=== PATIENT | female | born 1950 | race Caucasian/White ===

== ENCOUNTER 2019-11-03 14:13 | Outpatient (CLI) | payer MEDICARE, SELFPAY ==
--- NOTE | ~2019-11-03 | MM_ITS ---
EXAMINATION: MM screening [facility] BI w tonya HISTORY: Screening mammogram TECHNIQUE: Craniocaudal and mediolateral oblique 3-D tomosynthesis images were obtained and synthetic 2-D images were generated. CAD analysis was submitted and interpreted. COMPARISON: 09/14/2018, 09/09/2017, 09/03/2016 BREAST PARENCHYMAL COMPOSITION: There are scattered areas of fibroglandular density. FINDINGS: RIGHT BREAST: There is no evidence of suspicious mass, calcification, or architectural distortion to suggest malignancy. There has been no significant interval change. LEFT BREAST: There is possible architectural distortion in the middle/posterior third of the breast b est appreciated 8 cm from the nipple on craniocaudal tomosynthesis image 33/62. IMPRESSION: 1. Possible left breast architectural distortion. 2. Additional mammographic views and possible breast ultrasound are recommended. BI-RADS Category 0: Incomplete: Needs additional imaging evaluation. Reviewed, dictated and finalized at location A. IMPRESSION: 1. Possible left breast architectural distortion. 2. Additional mammographic views and possible breast ultrasound are recommended . BI-RADS Category 0: Incomplete: Needs additional imaging evaluation.
== END 2019-11-03 14:14 | disposition home or self-care (01) ==
DX: Z12.31 Encounter for screening mammogram for malignant neoplasm of breast (principal); R92.8 Other abnormal and inconclusive findings on diagnostic imaging of breast
CPT/HCPCS: 77063; 77067

== ENCOUNTER 2019-11-18 13:48 | Outpatient (CLI) | payer MEDICARE, SELFPAY ==
--- NOTE | ~2019-11-18 | MM_ITS ---
MM diagnostic mammo unilat LT DATE: 11/18/2019 14:12 INDICATION: Possible left breast architectural distortion in middle/posterior third of left breast la terally on screening mammogram of 11/03/2019 TECHNIQUE: Digital ML Tomosynthesis with composite 2-D view. Additional spot left craniocaudal and ML O Tomosynthesis views. Rolled medial and rolled lateral craniocaudal views of left breast. COMPARISON: 11/03/2019, 09/24/2018, 09/09/2017 bilateral digital screening mammogram examinations FINDINGS: No suspicious mass or architectural distortion, malignant calcification, skin thickening or retraction is evident. IMPRESSION: BI-RADS Category 1: Negative Recommendation: Routine annual mammographic screening Reviewed, dictated and finalized at Location [facility]. Reviewed, dictated and finalized at location A.
== END 2019-11-18 13:49 | disposition home or self-care (01) ==
LOC: ANHIMG 13:51
DX: R92.8 Other abnormal and inconclusive findings on diagnostic imaging of breast (principal)
CPT/HCPCS: 77065

== ENCOUNTER 2020-05-14 01:46 | Outpatient (CLI) | payer MEDICARE, SELFPAY ==
[2020-05-14 18:53] LABS: SARS-CoV-2 RNA PCR Negative
== END 2020-05-14 01:47 | disposition home or self-care (01) ==
LOC: ANHCOVIDDT 01:46
PROVIDERS: Visit Provider Internal Medicine Gastroenterology
DX: Z01.818 Encounter for other preprocedural examination (principal); Z20.828 Contact with and (suspected) exposure to other viral communicable diseases
CPT/HCPCS: 87635; C9803; U0003

== ENCOUNTER 2020-05-17 01:09 | Day surgery (SDC) | payer MEDICARE, SELFPAY ==
[2020-05-08 15:21] VITALS: BMI 27.1
--- NOTE | 2020-05-16 12:47 | P.PNAN_ITS ---
Anes - Initial Pre Proc Eval Procedure: Operation Date: 05/17/20 10:30 Proposed Procedures p Esophagogastroduodenoscopy - Rafael Bunch MD Date/Time: 05/16/20 12:47 Surgeon: Rafael Bunch MD Pre Op Diagnosis: Jesus's Esophagus Patient Data Age: 70 Gender: F Height: 1.73 m Weight: 81 kg Allergies Allergy/AdvReac Type Severity Reaction Status Date / Time No Known Allergies Allergy Unknown Uncoded 06/30/19 14:58 Home Medications Medication Instructions Recorded Confirmed Type amlodipine 10 mg PO DAILY 05/08/20 05/08/20 History biotin 2 mg PO DAILY 05/08/20 05/08/20 History escitalopram oxalate 20 mg PO DAILY 05/08/20 05/08/20 History hydrochlorothiazide 12.5 mg PO DAILY 05/08/20 05/08/20 History hydrocodone-acetaminophen 1 tablet PO HS PRN 05/08/20 05/08/20 History losartan 100 mg PO DAILY 05/08/20 05/08/20 History zgrarasl-zuh-ipws-FA-lutein 1 tablet PO DAILY 05/08/20 05/08/20 History [Centrum Silver Women] omega 6-wim-bwx-fish oil [Fish Oil] 1 cap PO BID 05/08/20 05/08/20 History omeprazole 20 mg PO DAILY 05/08/20 05/08/20 History trazodone 100 mg PO HS 05/08/20 05/08/20 History vitamin B complex [Super B Complex] 1 cap PO DAILY 05/08/20 05/08/20 History Patient hx anesthesia problems: none Family hx anesthesia problems: none PMFSH Past Medical History Medical History (Updated 05/16/20 @ 12:49 by Baldemar Bradley MD) Anxiety Barretts esophagus Chronic GERD HTN (hypertension) Osteoarthritis Osteoporosis Overweight (BMI 25.0-29.9) PUD (peptic ulcer disease) Family History Family History Other Hypertension Social History Social History Smoking status: Never smoker Alcohol intake: current Drinks per week: 0 Alcohol use details: MAY HAVE 1 OR 2 DRINKS PER YEAR Substance use: never Substance use type: does not use Spiritual care concerns: No Anes - Eval Final PreProcedure Day of Procedure 05/16/20 12:47 Patient weight: overweight Heart: regular rate and rhythm Lungs: clear to auscultation and normal air movement Airway: Mallampati scale class II Neurological: alert and oriented Last oral intake: >/= 8 hours ASA classification: II Emergent: no Anesthetic plan: proceed Anesthesia type and monitoring: general GIVS Informed Consent: The patient's anesthetic plan and its attendant risks and be nefits were discussed with the patient/family/POA. Questions were solicited and answers provided to the satisfaction of the patient/family/POA.
[2020-05-17 09:03] VITALS: BP 143/73; PULSE 73; RESP 16; TEMP 36.4; O2SAT 97; BMI 27.1
[2020-05-17] MEDS: LACTATED RINGERS 1,000 ML 150 ML IV CONT (09:17)
--- NOTE | 2020-05-17 09:49 | P.CONGI_ITS ---
Assessment and Plan Assessment and plan (1) Barretts esophagus: Code(s): K22.70 - 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 Status: Acute Assessment and Plan: Patient has history of Jesus's esophagus. No dysplasia has been known previously. Plan is for surveillance EGD now on at 3 year intervals in the future. Continued long-term years of omeprazole or similar proton pump inhibitor advised. GI Consult Note Consult date/time: 05/17/20 09:49 HPI: Nissa Thao is a 70 year old female Presents for follow-up EGD. Patient has a history of Jesus's esophagus patient presents today for follow- up EGD. She denies heartburn. She denies bleeding. She denies any weight loss. She has had no difficulty swallowing. Previous exams have shown no dysplasia. Patient did have several benign hyperplastic gastric polyps identified 3 years ago. Plan to pursue surveillance EGD at 3 year intervals at this juncture. Review of Systems Review of Systems: All systems reviewed & are unremarkable except as noted in HPI and below PMFSH Past Medical History Medical History Anxiety Barretts esophagus Chronic GERD HTN (hypertension) Osteoarthritis Osteoporosis Overweight (BMI 25.0-29.9) PUD (peptic ulcer disease) Family History Family History Other Hypertension Social History Social History Smoking status: Never smoker Alcohol intake: current Drinks per week: 0 Alcohol use details: MAY HAVE 1 OR 2 DRINKS PER YEAR Substance use: never Substance use type: does not use Spiritual care concerns: No Meds Home Medications and Allergies Home Medications Medication Instructions Recorded Confirmed Type amlodipine 10 mg PO DAILY 05/08/20 05/17/20 History biotin 2 mg PO DAILY 05/08/20 05/17/20 History escitalopram oxalate 20 mg PO DAILY 05/08/20 05/17/20 History hydrochlorothiazide 12.5 mg PO DAILY 05/08/20 05/17/20 History hydrocodone-acetaminophen 1 tablet PO HS PRN 05/08/20 05/17/20 History losartan 100 mg PO DAILY 05/08/20 05/17/20 History ppwtbwzb-eym-qlqu-FA-lutein 1 tablet PO DAILY 05/08/20 05/17/20 History [Centrum Silver Women] omega 4-aqj-ztw-fish oil [Fish Oil] 1 cap PO BID 05/08/20 05/17/20 History omeprazole 20 mg PO DAILY 05/08/20 05/17/20 History trazodone 100 mg PO HS 05/08/20 05/17/20 History vitamin B complex [Super B Complex] 1 cap PO DAILY 05/08/20 05/17/20 History Allergies Allergy/AdvReac Type Severity Reaction Status Date / Time No Known Allergies Allergy Unknown Uncoded 05/17/20 09:01 Vital Signs Vital Signs - 24 hr 05/17/20 09:03 Temperature 97.6 F Pulse Rate 73 Respiratory Rate 16 Blood Pressure 143/73 H Pulse Oximetry 97 Exam Narrative: Exam Narrative: Physical exam reveals patient to be alert. Vital signs stable. HEENT exam unremarkable. Lungs are clear to auscultation and percussion. Heart is without murmur or extra sounds. Abdominal exam bowel sounds are present soft nontender with no organomegaly. Digital external rectal exam normal.
[2020-05-17 10:09] VITALS: BP 138/79; PULSE 82; RESP 25; O2SAT 96
[2020-05-17 10:19] VITALS: BP 134/80; PULSE 74; RESP 19; O2SAT 95
[2020-05-17 10:29] VITALS: BP 122/74; PULSE 79; RESP 24; O2SAT 97
[2020-05-17 10:35] VITALS: BP 141/77; PULSE 65; RESP 19; O2SAT 99
== END 2020-05-17 10:50 | disposition home or self-care (01) ==
PROVIDERS: Visit Provider Internal Medicine Gastroenterology
PROC: 0DJ08ZZ Inspection of Upper Intestinal Tract, Via Natural or Artificial Opening Endoscopic (ICD-10-PCS; CPT 43235; principal; 2020-05-17 10:30)
DX: K22.70 Barrett's esophagus without dysplasia (principal); K44.9 Diaphragmatic hernia without obstruction or gangrene; K21.00 Gastro-esophageal reflux disease with esophagitis, without bleeding; I10 Essential (primary) hypertension; M81.0 Age-related osteoporosis without current pathological fracture; F41.9 Anxiety disorder, unspecified; Z87.11 Personal history of peptic ulcer disease
CPT/HCPCS: 43239; 88305; C9803; J2704; J7120; U0003

== ENCOUNTER 2020-11-22 14:55 | Outpatient (CLI) | payer MEDICARE, SELFPAY ==
--- NOTE | ~2020-11-22 | MM_ITS ---
EXAMINATION: MM screening [facility] BI w tonya HISTORY: Screening mammogram TECHNIQUE: Craniocaudal and mediolateral oblique 3-D tomosynthesis images were obtained and synthetic 2-D images were generated. CAD analysis was submitted and interpreted. COMPARISON: 11/18/2019 11/03/2019, 09/24/2018 BREAST PARENCHYMAL COMPOSITION: There are scattered areas of fibroglandular density. FINDINGS: There is no evidence of suspicious mass, calcification, or architectural distortion to sugg est malignancy in either breast. There has been no suspicious interval change. IMPRESSION: 1. No mammographic evidence of malignancy. 2. Recommend routine screening mammography in one year. BI-RADS Category 1: Negative Reviewed, dictated and finalized at location A.
== END 2020-11-22 14:56 | disposition home or self-care (01) ==
DX: Z12.31 Encounter for screening mammogram for malignant neoplasm of breast (principal)
CPT/HCPCS: 77063; 77067

== ENCOUNTER 2020-12-27 01:37 | Day surgery (SDC) | payer MEDICARE, SELFPAY ==
--- NOTE | 2020-12-20 14:55 | PM.IMHP ---
H&P: HPI History of Present Illness Date/Time: 12/20/20 14:55 Chief Complaint: right foot pain Narrative: 70-year-old woman with chronic right foot pain and deformity. Failed conservative treatment with accommodative shoe wear, custom inserts toe padding and strapping. Progressive deformity particularly the 2nd toe. Presents now for operative treatment. Review of Systems Constitutional: Constitutional: Denies fever(s) Eyes: Eyes: Denies blurry vision ENT: Reports Normal hearing present Cardiovascular: Cardiovascular: Denies chest pain and Denies dyspnea Respiratory: Respiratory: Denies dyspnea and Denies wheezing Gastrointestinal: Gastrointestinal: Denies abdominal pain Genitourinary: Genitourinary: Denies urinary urgency Musculoskeletal: Musculoskeletal: Reports as per HPI and Denies numbness Integumentary/Breasts: Skin/Breast: Denies changing lesions and Denies sores Neurologic: Reports Normal hearing present, Denies behavioral changes, Denies confusion, Denies numbness and Denies convulsions Psychiatric: Psychiatric: Denies behavioral changes, Denies confusion and Denies hallucinations Endocrine: Endocrine: Denies heat intolerance Hematologic/Lymphatic: Hematologic/Lymphatic: Denies easy bleeding Allergic/Immunologic: Allergic/Immunologic: Denies wheezing PMFSH Past Medical History Medical History 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 Anxiety Barretts esophagus Chronic GERD Clawtoe, acquired Hallux valgus (acquired), right foot HTN (hypertension) Inflammatory arthritis Metatarsalgia of both feet Osteoarthritis Osteoporosis Overweight (BMI 25.0-29.9) PUD (peptic ulcer disease) Family History Family History Other Hypertension Social History Social History Smoking status: Never smoker Alcohol intake: current Drinks per week: 0 Alcohol use details: MAY HAVE 1 OR 2 DRINKS PER YEAR Substance use: never Substance use type: does not use Spiritual care concerns: No Meds Home Medications and Allergies Home Medications Medication Instructions Recorded Confirmed Type amlodipine 10 mg PO DAILY 05/08/20 11/07/20 History biotin 2 mg PO DAILY 05/08/20 11/07/20 History escitalopram oxalate 20 mg PO DAILY 05/08/20 11/07/20 History hydrochlorothiazide 12.5 mg PO DAILY 05/08/20 11/07/20 History hydrocodone-acetaminophen 1 tablet PO HS PRN 05/08/20 11/07/20 History losartan 100 mg PO DAILY 05/08/20 11/07/20 History kinbfkln-mch-gccu-FA-lutein 1 tablet PO DAILY 05/08/20 11/07/20 History [Centrum Silver Women] omega 1-bzm-dbe-fish oil [Fish Oil] 1 cap PO BID 05/08/20 11/07/20 History omeprazole 20 mg PO DAILY 05/08/20 11/07/20 History trazodone 100 mg PO HS 05/08/20 11/07/20 History vitamin B complex [Super B Complex] 1 cap PO DAILY 05/08/20 11/07/20 History Allergies Allergy/AdvReac Type Severity Reaction Status Date / Time No Known Allergies Allergy Unknown Uncoded 11/07/20 14:54 Exam Const: General: healthy appearing; No in distress or confusion Orientation/consciousness: oriented to person, oriented to place, oriented to time and No confusion HENMT: Head: normal to inspection, normocephalic and atraumatic Eyes: Conjunctivae: conjunctivae normal Sclera: sclerae normal Neck: Neck: supple and nontender Resp: Effort & Inspection: normal respiratory effort and no audible wheezes Cardio: Rhythm: regular rhythm Skin: General skin exam: no rashes or lesions noted Neuro: General: oriented to person, oriented to place, oriented to time and No confusion Extrem: Right upper extremity: normal to inspection Left upper extremity: normal to inspection Right lower extremity: ankle Details: normal to inspection, normal ROM ( dorsiflexion 5?, plantar flexion 45?, inversion 20?, ever
[2020-12-21 14:23] VITALS: BMI 27.0
--- NOTE | 2020-12-26 14:28 | WPDANESEPPF ---
Anes - Initial Pre Proc Eval Procedure: Operation Date: 12/27/20 08:30 Proposed Procedures p Right Hallux Valgus Correction with First Metatarsal Osteotomy, Possible Phalangeal Osteotomy, Second Metatarsal Phalangeal Release, Possible Tendon Transfer - Joseph Leong MD Date/Time: 12/26/20 14:28 Surgeon: Joseph Leong MD Pre Op Diagnosis: right hallux valgux,rt 2nd crossover toe Patient Data Age: 70 Gender: F Height: 1.71 m Weight: 79.4 kg Allergies Allergy/AdvReac Type Severity Reaction Status Date / Time No Known Allergies Allergy Unknown Uncoded 12/27/20 06:58 Home Medications Medication Instructions Recorded Confirmed Type amlodipine 10 mg PO DAILY 05/08/20 12/27/20 History biotin 2 mg PO DAILY 05/08/20 12/27/20 History escitalopram oxalate 20 mg PO DAILY 05/08/20 12/27/20 History hydrochlorothiazide 12.5 mg PO DAILY 05/08/20 12/27/20 History hydrocodone-acetaminophen 1 tablet PO HS PRN 05/08/20 12/27/20 History losartan 100 mg PO HS 05/08/20 12/27/20 History vbycehpl-ucj-qvno-FA-lutein 1 tablet PO DAILY 05/08/20 12/27/20 History [Centrum Silver Women] omega 8-jov-mjd-fish oil [Fish Oil] 1 cap PO BID 05/08/20 12/27/20 History omeprazole 20 mg PO BID 05/08/20 12/27/20 History trazodone 100 mg PO HS 05/08/20 12/27/20 History vitamin B complex [Super B Complex] 1 cap PO DAILY 05/08/20 12/27/20 History light mineral oil-mineral oil 1 drp OPHTHALMIC (EYE) PRN PRN 12/21/20 12/27/20 History [Soothe XP] Patient hx anesthesia problems: none Family hx anesthesia problems: none PMFSH Past Medical History Medical History 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 Anxiety Barretts esophagus Chronic GERD Clawtoe, acquired Hallux valgus (acquired), right foot HTN (hypertension) Inflammatory arthritis Metatarsalgia of both feet Osteoarthritis Osteoporosis Overweight (BMI 25.0-29.9) PUD (peptic ulcer disease) Family History Family History Other Hypertension Social History Social History Smoking status: Never smoker Alcohol intake: current Drinks per week: 0 Alcohol use details: ONE DRINK PER MONTH Substance use: never Substance use type: does not use Living arrangements: other Spiritual care concerns: No Anes - Eval Final PreProcedure Day of Procedure 12/26/20 14:28 Patient weight: overweight Heart: regular rate and rhythm Lungs: clear to auscultation and normal air movement Airway: Mallampati scale class II Neurological: alert and oriented Last oral intake: >/= 8 hours ASA classification: II Emergent: no Anesthetic plan: proceed Anesthesia type and monitoring: general LMA and standard monitoring Informed Consent: The patient's anesthetic plan and its attendant risks and benefits were discussed with the patient/family/POA. Questions were solicited and answers provided to the satisfaction of the patient/family/POA.
[2020-12-27] VITALS (8 sets, daily range): BP systolic 132–142; BP diastolic 58–77; PULSE 68–86; RESP 10–18; TEMP 36.3–37.1; O2SAT 91–96; BMI 27.6
--- NOTE | ~2020-12-27 | XR_ITS ---
EXAMINATION: XR surgery orthopedic DATE: 12/27/2020 10:15 INDICATION: Right foot metatarsal osteotomy TECHNIQUE: 2 fluoroscopic images of the right forefoot were obtained during procedure performed by Dr Cheyanne Leong. Radiologist was not present for the imaging or procedure. The amount of fluoroscopy time u sed during this procedure was 0.2 minutes. COMPARISON: None. FINDINGS: Postoperative change of bunionectomy and hallux valgus correction with osteotomy at the medial head o f the first metatarsal and chevron realignment osteotomy at the distal diaphysis of the first metatar baljeet. There is also a second realignment osteotomy across the mid diaphysis of the first proximal phal anx with medial sided staple fixation. Finally there is a small minimally displaced avulsion fracture versus additional osteotomy at the lateral base of the first proximal phalanx which involves a minim al portion of the articular surface. An axially directed percutaneous fixation pin extends from the t uft of the second distal phalanx across the middle and proximal phalanges into the head and neck of t he second metatarsal. Alignment of the axes of the first and second rays appears near-anatomic. Expec abdelrahman small amount of postoperative gas in the soft tissues. IMPRESSION: 1. Postoperative changes in the right forefoot as detailed above. 2. Possible minimally displaced small avulsion fracture versus osteotomy at the lateral aspect of the base of the first proximal phalanx. Correlate with procedure note. Reviewed, dictated and finalized at location A. IMPRESSION: 1. Postoperative changes in the right forefoot as detailed above. 2. Possible minimally displaced small avulsion fracture versus osteotomy at the lateral aspect of the base of the first proximal phalanx. Correlate with proce dure note.
--- NOTE | 2020-12-27 07:00 | WPDHPUPDATE1 ---
History and Physical Update Update Date/Time: 12/27/20 07:00 History and Physical has been reviewed, including an updated exam of the patient. There are NO changes in the patient's condition. Risks, benefits, and alternatives have been discussed and questions answered. Patient agrees to proceed with procedure.
[2020-12-27] MEDS: ACETAMINOPHEN 500 MG TABLET 1000 MG PO (07:20)
[2020-12-27] MEDS: KETOROLAC 15 MG/ML VIAL (*BKC) IV PUSH (07:20)
[2020-12-27] MEDS: LACTATED RINGERS 1,000 ML 30 ML IV CONT ×2 (07:20→10:25)
[2020-12-27] MEDS: ceFAZolin 2 GM/D5W 50 ML 2 GM/50 ML BAG IVPB (08:28)
[2020-12-27] MEDS: BUPIVACAINE HCL 0.5% PF 30 ML VIAL INFILTRATE (09:15)
--- NOTE | 2020-12-27 10:43 | W.PM.PROC2 ---
Procedure Note - Detailed Date of Procedure 12/27/20 Pre-op Diagnosis right hallux valgux,rt 2nd crossover toe Post-op Diagnosis same Procedure Performed Right hallux valgus correction with double osteotomy, crossover toe repair. 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 Failed non operative treatment. Presents now for operative treatment. Description of Procedure WHAT WAS DONE: After informed consent was given, the operative extremity was marked in the preoperative holding area. The patient received intravenous antibiotics. The patient was brought to the operating room where they underwent a general anesthetic by the anesthesia team. The patient was positioned supine on the operating room table. A time-out was performed confirming the patient, site of the surgery, and the plan for surgery. The right lower extremity was then prepped and draped in the usual sterile surgical fashion using ChloraPrep skin solution. Foot and ankle were exsanguinated and a calf tourniquet was inflated to 225 mmHg pressure. A longitudinal incision was then made along the medial border of the 1st ray centered over the medial eminence with a #15 blade knife. Hemostasis was controlled with electric cautery. The dorsal and plantar sensory nerves were identified and retracted bluntly. A medial capsulotomy was then performed. This was reflected off the medial eminence. The joint was inspected for evaluation of degenerative changes. A lateral release was then performed through the joint with a #15 blade knife. The medial eminence was then resected with a sagittal saw in line with the medial border of the foot. Correction of the deformity was performed with a chevron-shaped osteotomy performed with sagittal saw from medial to lateral through the distal portion of the 1st metatarsal. The lateral portion of the bone cut was completed with an osteotome to protect the soft tissue. The capital fragment was then translated laterally and impacted on to the 1st metatarsal shaft. Lateral translation and impaction corrected both hallux valgus deformity and correction of the distal metatarsal articular angle. Temporary fixation was performed and alignment was verified with image intensification. Hallux valgus angle correction, intermetatarsal angle correction and distal metatarsal articular angle were verified. Fixation was achieved with 2.0 millimeter bioabsorbable pins. Two pins were utilized. Image intensification confirmed final alignment. Rotation was verified visually. The wound was then thoroughly irrigated with antibiotic solution. The capsule was repaired through a drill hole in the distal 1st metatarsal with 0 Vicryl interrupted suture. The dorsal limb of the capsule was repaired with 00 Vicryl interrupted suture. Subcutaneous tissue was repaired with 000 Monocryl interrupted suture and the skin approximated with 0000 nylon running suture. Local anesthetic with 0.5% Marcaine plain was injected in the soft tissue. Clinically and fluoroscopically there was still hallux valgus interphalangeus present. Proximal phalanx osteotomy was indicated. Medial incision made along the proximal phalanx with 15 blade knife. Hemostasis controlled electrocautery. Dissection down to the medial aspect of the proximal phalanx. Retractors placed. Sagittal saw used to make a medial closing wedge osteotomy transversely across the proximal phalanx. Image intensification confirmed placement of the osteotomy. Fixation was achieved with the Arthrex 9 millimeter x 9 millimeter staple. Good stability and fixation were noted. Image intensification confirmed final alignment of the osteotomy and placement of the hardware. Overall alignment of the 1st ray was verified. Wound was thoroughly irrigated with antibiotic solution. Soft t
[2020-12-27] MEDS: fentaNYL CITRATE INJ (*CRX) 100 MCG/2 ML VIAL 25 MCG IV PUSH (10:59)
[2020-12-27] MEDS: oxyCODONE HCL (*CRX) 5 MG TAB IR PO (11:48)
== END 2020-12-27 12:20 | disposition home or self-care (01) ==
PROVIDERS: Visit Provider Orthopaedic Surgery
PROC: (CPT 28750; principal; 2020-12-27 08:30)
DX: M20.11 Hallux valgus (acquired), right foot (principal); M20.5X1 Other deformities of toe(s) (acquired), right foot; I10 Essential (primary) hypertension; M81.0 Age-related osteoporosis without current pathological fracture; F41.9 Anxiety disorder, unspecified
CPT/HCPCS: 28299; 28313; A9270; C1713; J0690; J1100; J1170; J1885; J2250; J2405; J2704; J3010; J7120

== ENCOUNTER 2021-04-09 10:47 | Outpatient (CLI) | payer MEDICARE, SELFPAY ==
[2021-04-09 12:43] LABS: Anion Gap 10 mmol/L (8-16); Blood Urea Nitrogen 11 mg/dL (7-17); Calcium 9.6 mg/dL (8.4-10.2); Carbon Dioxide 31 mmol/L (22-30); Chloride 99 mmol/L (98-107); Estimated Glomerular Filt Rate 55; Glucose 111 mg/dL (65-110); Potassium 3.9 mmol/L (3.4-5.0); Sodium 140 mmol/L (137-145)
== END 2021-04-09 10:48 | disposition home or self-care (01) ==
PROVIDERS: Anesthesiology; PCP Internal Medicine; Visit Provider Orthopaedic Surgery
DX: I10 Essential (primary) hypertension (principal); Z01.818 Encounter for other preprocedural examination
CPT/HCPCS: 36415; 80048

== ENCOUNTER 2021-04-11 00:14 | Day surgery (SDC) | payer MEDICARE, SELFPAY ==
[2021-04-08 12:57] VITALS: BMI 28.1
--- NOTE | 2021-04-08 13:01 | PC.NURSE ---
Report to the Outpatient Waiting Room, entrance under the green pavilion located off [facility], at time __0600 on date ____04/11/21___. OR Time: . - You and your visitor will be asked a series of questions to screen for COVID 19 for your protection. - A mask is required within the hospital. - Only one visitor is allowed at this time. Patient visitors will be guided where to wait when not with patient. Preoperative COVID Testing Requirements: No COVID Test needed if: (proof is required; if not received patient will have Rapid Test prior to entry) - Patient has received COVID Vaccine at least 14 days prior to procedure date or - Patient has positive COVID test result within last 90 days of surgery date. COVID Test needed if above criteria is not met If not COVID vaccinated a COVID test must be conducted within 72 hours of surgery and patient is asked to isolate self from time of testing until procedure. You will go to the [facility] for your COVID testing. The [facility] site is located at the corner of [address] [facility]. You will only be called if COVID results are positive and your surgeon may reschedule your elective surgery date. Patients may have clear liquids (water, carbonated beverages, clear teas, apple juice) until 3 hours prior to surgery with a maximum of 20 ounces. - No food from midnight until time of surgery - Infants may have breast milk until 4 hours before surgery, formula 6 hours prior to surgery. - Children will be allowed to drink immediately following surgery. If applicable, please bring a bottle or sippy cup to assist with drinking. Juice, water, soda, and popsicles are readily available. For infants on formula, please bring formula the day of surgery. Pacifiers are allowed. Take the following medications with a SIP of water the morning of surgery: AMLODIPINE,ESCITALOPRAM Medications to discontinue per physician ALL VITAMINS AND SUPPLEMENTS Date to take last dose___04/08/21 Please no make-up, nail puerto rican, hairspray, perfume, deodorant, or body powder the day of surgery. No jewelry (including any body piercings) or valuables the day of surgery, leave them at home. Please take a shower or bath the night before, or the morning of, surgery with an antibacterial soap. Wear comfortable, loose fitting clothing. Children are encouraged to wear pajamas. - Jewelry must be removed prior to entering the operating room. Rings and piercings that are not removed may be cut off. - The hospital will not accept responsibility for valuables. - Please leave all valuables, including medications, at home the day of surgery. If you are going home after surgery, a licensed coach driver must drive you home. - NO public transportation without another adult. - We recommend that an adult stay with you for 24 hours following discharge. - We also recommend that you do not drive, make important decision, drink alcoholic beverages, or take any drugs that were not prescribed by your health care provider for at least 24 hours after your discharge time. For Pediatric surgeries, we recommend two adults accompany the child home (only one inside the building at this time). Follow any additional instructions given to you from your surgeon. Telephone instructions given to ____PATIENT and asked if any additional questions and then verbalized understanding. Patient advised to call surgeon office or pre surgery nurse liaison [phone] if any additional questions.
--- NOTE | 2021-04-10 13:34 | PM.IMHP ---
H&P: HPI History of Present Illness Date/Time: 04/10/21 13:34 Chief Complaint: Left foot pain with toe deformity Narrative: 70-year-old woman with left hallux valgus and 2nd crossover toe. She has failed conservative treatment with strapping, bracing, padding and accommodative shoes. Pain with daily activity and weight-bearing. Presents for operative treatment. Review of Systems Constitutional: Constitutional: Denies fever(s) Eyes: Eyes: Denies blurry vision ENT: Reports Normal hearing present Cardiovascular: Cardiovascular: Denies chest pain and Denies dyspnea Respiratory: Respiratory: Denies dyspnea and Denies wheezing Gastrointestinal: Gastrointestinal: Denies abdominal pain Genitourinary: Genitourinary: Denies urinary urgency Musculoskeletal: Musculoskeletal: Reports as per HPI and Denies numbness Integumentary/Breasts: Skin/Breast: Denies changing lesions and Denies sores Neurologic: Reports Normal hearing present, Denies behavioral changes, Denies confusion, Denies numbness and Denies convulsions Psychiatric: Psychiatric: Denies behavioral changes, Denies confusion and Denies hallucinations Endocrine: Endocrine: Denies heat intolerance Hematologic/Lymphatic: Hematologic/Lymphatic: Denies easy bleeding Allergic/Immunologic: Allergic/Immunologic: Denies wheezing PMFSH Past Medical History Medical History 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 Anxiety Barretts esophagus Chronic GERD Clawtoe, acquired Encounter for Postoperative Care Hallux valgus (acquired), right foot HTN (hypertension) Inflammatory arthritis Metatarsalgia of both feet Osteoarthritis Osteoporosis Overweight (BMI 25.0-29.9) PUD (peptic ulcer disease) Family History Family History Other Hypertension Social History Social History Smoking status: Never smoker Alcohol intake: current Drinks per week: 0 Alcohol use details: ONE DRINK PER MONTH Substance use: never Substance use type: does not use Spiritual care concerns: No Meds Home Medications and Allergies Home Medications Medication Instructions Recorded Confirmed Type Centrum Silver Women 1 tablet PO DAILY 05/08/20 04/08/21 History amlodipine 10 mg PO DAILY 05/08/20 04/08/21 History biotin 2 mg PO DAILY 05/08/20 04/08/21 History escitalopram oxalate 20 mg PO DAILY 05/08/20 04/08/21 History hydrochlorothiazide 12.5 mg PO DAILY 05/08/20 04/08/21 History hydrocodone-acetaminophen 1 tablet PO HS PRN 05/08/20 04/08/21 History losartan 100 mg PO HS 05/08/20 04/08/21 History omega 8-imw-gfc-fish oil [Fish Oil] 1 cap PO BID 05/08/20 04/08/21 History omeprazole 20 mg PO BID 05/08/20 04/08/21 History trazodone 100 mg PO HS 05/08/20 04/08/21 History vitamin B complex 1 cap PO DAILY 05/08/20 04/08/21 History Soothe XP 1 drp OPHTHALMIC (EYE) PRN PRN 12/21/20 04/08/21 History Allergies Allergy/AdvReac Type Severity Reaction Status Date / Time No Known Allergies Allergy Unknown Uncoded 04/08/21 12:42 Exam Const: General: healthy appearing; No in distress or confusion Orientation/consciousness: oriented to person, oriented to place, oriented to time and No confusion HENMT: Head: normal to inspection, normocephalic and atraumatic Eyes: Conjunctivae: conjunctivae normal Sclera: sclerae normal Neck: Neck: supple and nontender Resp: Effort & Inspection: normal respiratory effort and no audible wheezes Cardio: Rhythm: regular rhythm Skin: General skin exam: no rashes or lesions noted Neuro: General: oriented to person, oriented to place, oriented to time and No confusion Extrem: Right upper extremity: normal to inspection Left upper extremity: normal to inspection Right lower extremity: ankle Details: normal to inspection, normal ROM ( dorsiflexion 5?,
--- NOTE | 2021-04-10 15:37 | P.PNAN_ITS ---
Anes - Initial Pre Proc Eval Procedure: Operation Date: 04/11/21 07:30 Proposed Procedures p Left Hallux Valgus Correction with First Metatarsal Osteotomy, Possible Phalangeal Osteotomy Second Metatarsal Phalangeal Release, Possible Tendon Transfer - Joseph Leong MD Date/Time: 04/10/21 15:37 Surgeon: Joseph Leong MD Pre Op Diagnosis: Left hallux valgus second crossover toe Patient Data Age: 70 Gender: F Height: 1.7 m Weight: 81.65 kg Allergies Allergy/AdvReac Type Severity Reaction Status Date / Time No Known Allergies Allergy Unknown Uncoded 04/11/21 06:41 Home Medications Medication Instructions Recorded Confirmed Type Centrum Silver Women 1 tablet PO DAILY 05/08/20 04/11/21 History amlodipine 10 mg PO DAILY 05/08/20 04/11/21 History biotin 2 mg PO DAILY 05/08/20 04/11/21 History escitalopram oxalate 20 mg PO DAILY 05/08/20 04/11/21 History hydrochlorothiazide 12.5 mg PO DAILY 05/08/20 04/11/21 History losartan 100 mg PO HS 05/08/20 04/11/21 History omega 0-kqz-lxa-fish oil [Fish Oil] 1 cap PO BID 05/08/20 04/11/21 History omeprazole 20 mg PO BID 05/08/20 04/11/21 History trazodone 100 mg PO HS 05/08/20 04/11/21 History vitamin B complex 1 cap PO DAILY 05/08/20 04/11/21 History Soothe XP 1 drp OPHTHALMIC (EYE) PRN PRN 12/21/20 04/08/21 History hydrocodone-acetaminophen 1 tablet PO HS PRN #30 tablet 04/11/21 Rx Patient hx anesthesia problems: none Family hx anesthesia problems: none Results Review: All pre-operative results and documents have been reviewed as part of the pre-operative evaluation. 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 Anxiety Barretts esophagus Chronic GERD Clawtoe, acquired Encounter for Postoperative Care Hallux valgus (acquired), right foot HTN (hypertension) Inflammatory arthritis Metatarsalgia of both feet Osteoarthritis Osteoporosis Overweight (BMI 25.0-29.9) PUD (peptic ulcer disease) Family History Family History Other Hypertension Social History Social History Smoking status: Never smoker Alcohol intake: current Drinks per week: 0 Alcohol use details: ONE DRINK PER MONTH Substance use: never Substance use type: does not use Living arrangements: with family Spiritual care concerns: No Anes - Eval Final PreProcedure Day of Procedure 04/10/21 15:37 Patient weight: overweight Heart: regular rate and rhythm Lungs: clear to auscultation and normal air movement Airway: Mallampati scale class II Neurological: alert and oriented Last oral intake: >/= 8 hours ASA classification: II Emergent: no Anesthetic plan: proceed Anesthesia type and monitoring: general GIVS and LMA Results Review: All pre-operative results and documents have been reviewed as part of the pre-operative evaluation. Informed Consent: The patient's anesthetic plan and its attendant risks and benefits were discussed with the patient/family/POA. Questions were solicited and answers provided to the satisfaction of the patient/family/POA.
[2021-04-11] VITALS (10 sets, daily range): BP systolic 121–169; BP diastolic 66–81; PULSE 60–82; RESP 12–18; TEMP 36.1–36.6; O2SAT 94–96
--- NOTE | ~2021-04-11 | XR_ITS ---
EXAMINATION: XR surgery orthopedic DATE: 04/11/2021 08:30 INDICATION: Left forefoot surgery TECHNIQUE: 3 fluoroscopic images of the left forefoot were obtained during procedure performed by Dr. Leong. Radiologist was not present for the imaging or procedure. The amount of fluoroscopy time us ed during this procedure was 0.1 minutes. COMPARISON: 11/07/2020 FINDINGS: Hallux valgus correction with Chevron realignment osteotomy at the neck of the first metatarsal and r ealignment osteotomy with medial staple fixation at the base of the first proximal phalanx. Fixation across the second ray with axillary directed percutaneous pin extending from the tuft of the distal p halanx across the middle and proximal phalanges and into the head of the second metatarsal. Chronic s olidly fused second and third distal interphalangeal joint arthrodeses. Remaining bones are unremarka ble. IMPRESSION: 1. Postoperative changes in the left forefoot for prior hallux valgus and first and second toe crosso roxane as detailed above. See procedure note for further detail. Reviewed, dictated and finalized at location A. IMPRESSION: 1. Postoperative changes in the left forefoot for prior hallux valgus and first and second toe crossover as detailed above. See procedure note for further det ail.
[2021-04-11] MEDS: ACETAMINOPHEN 500 MG TABLET 1000 MG PO (06:36)
[2021-04-11] MEDS: KETOROLAC 15 MG/ML VIAL (*BKC) IV PUSH (06:38)
--- NOTE | 2021-04-11 06:54 | WPDHPUPDATE1 ---
History and Physical Update Update Date/Time: 04/11/21 06:54 History and Physical has been reviewed, including an updated exam of the patient. There are NO changes in the patient's condition. Risks, benefits, and alternatives have been discussed and questions answered. Patient agrees to proceed with procedure.
[2021-04-11] MEDS: LACTATED RINGERS 1,000 ML 30 ML IV CONT ×2 (06:55→08:44)
[2021-04-11] MEDS: ceFAZolin 2 GM/D5W 50 ML 2 GM/50 ML BAG IVPB (07:31)
[2021-04-11] MEDS: BUPIVACAINE HCL 0.5% PF 30 ML VIAL INFILTRATE (07:58)
--- NOTE | 2021-04-11 08:58 | W.PM.PROC2 ---
Procedure Note - Detailed Date of Procedure 04/11/21 Pre-op Diagnosis Left hallux valgus, second crossover toe Post-op Diagnosis same Procedure Performed Left hallux valgus correction with double osteotomy, 2nd crossover toe reconstruction with soft tissue repair. Surgeon Joseph Leong MD Campus Director fire control assistant Anesthesia general Indications 70-year-old woman with left hallux valgus deformity and 2nd crossover toe. Previous surgery on the right side and did well. She has failed conservative treatment on left side with toe strapping, padding, accommodative shoes. Pain with daily activity. Presents for operative treatment. Description of Procedure WHAT WAS DONE: After informed consent was given, the operative extremity was marked in the preoperative holding area. The patient received intravenous antibiotics. The patient was brought to the operating room where they underwent a general anesthetic by the anesthesia team. The patient was positioned supine on the operating room table. A time-out was performed confirming the patient, site of the surgery, and the plan for surgery. The left lower extremity was then prepped and draped in the usual sterile surgical fashion using ChloraPrep skin solution. Foot and ankle were exsanguinated and a calf tourniquet was inflated to 225 mmHg pressure. A longitudinal incision was then made along the medial border of the 1st ray centered over the medial eminence with a #15 blade knife. Hemostasis was controlled with electric cautery. The dorsal and plantar sensory nerves were identified and retracted bluntly. A medial capsulotomy was then performed. This was reflected off the medial eminence. The joint was inspected for evaluation of degenerative changes. A lateral release was then performed through the joint with a #15 blade knife. The medial eminence was then resected with a sagittal saw in line with the medial border of the foot. Correction of the deformity was performed with a chevron-shaped osteotomy performed with sagittal saw from medial to lateral through the distal portion of the 1st metatarsal. The lateral portion of the bone cut was completed with an osteotome to protect the soft tissue. The capital fragment was then translated laterally and impacted on to the 1st metatarsal shaft. Lateral translation and impaction corrected both hallux valgus deformity and correction of the distal metatarsal articular angle. Temporary fixation was performed and alignment was verified with image intensification. Hallux valgus angle correction, intermetatarsal angle correction and distal metatarsal articular angle were verified. Fixation was achieved with 2.0 millimeter bioabsorbable pins. Two pins were utilized. Image intensification confirmed final alignment. Rotation was verified visually. The wound was then thoroughly irrigated with antibiotic solution. The capsule was repaired through a drill hole in the distal 1st metatarsal with 0 Vicryl interrupted suture. The dorsal limb of the capsule was repaired with 00 Vicryl interrupted suture. Subcutaneous tissue was repaired with 000 Monocryl interrupted suture and the skin approximated with 0000 nylon running suture. Local anesthetic with 0.5% Marcaine plain was injected in the soft tissue. Clinically and fluoroscopically there was still hallux valgus interphalangeus present. Proximal phalanx osteotomy was indicated. Medial incision made along the proximal phalanx with 15 blade knife. Hemostasis controlled electrocautery. Dissection down to the medial aspect of the proximal phalanx. Retractors placed. Sagittal saw used to make a medial closing wedge osteotomy transversely across the proximal phalanx. Image intensification confirmed placement of the osteotomy. Fixation was achieved with the Arthrex 9 millimeter x 9 millimeter staple. Good stability and fixation were noted. Image intensification confirmed final alignment of the osteotomy and placement of the hardware.
[2021-04-11] MEDS: oxyCODONE HCL (*CRX) 5 MG TAB IR PO (10:17)
== END 2021-04-11 10:58 | disposition home or self-care (01) ==
PROVIDERS: PCP Internal Medicine; Visit Provider Orthopaedic Surgery
PROC: (CPT 28750; principal; 2021-04-11 07:30)
DX: Q66.212 Congenital metatarsus primus varus, left foot (principal); M20.5X2 Other deformities of toe(s) (acquired), left foot; M77.42 Metatarsalgia, left foot; M77.41 Metatarsalgia, right foot; I10 Essential (primary) hypertension; K21.9 Gastro-esophageal reflux disease without esophagitis; M81.0 Age-related osteoporosis without current pathological fracture
CPT/HCPCS: 28299; 28313; 36415; 80048; A9270; C1713; J0690; J1885; J2270; J2405; J2704; J7120

== ENCOUNTER 2021-09-19 15:10 | Outpatient (CLI) | payer MEDICARE, SELFPAY ==
--- NOTE | ~2021-09-19 | CT_ITS ---
EXAMINATION: CT abdomen pelvis w con EXAM DATE: 09/19/2021 15:47 INDICATION: R10.9 - Unspecified abdominal pain. TECHNIQUE: Spiral CT of the abdomen and pelvis was performed following intravenous injection of 100 m L Omnipaque 350. Axial, coronal and sagittal images of the abdomen and pelvis were reviewed. The do se-length product (DLP) for this examination was 765.66 mGy-cm. The exposure was tailored according to patient size (auto mA exposure control), and iterative reconstruction (ASIR) was used as additiona l dose reduction technique. There is no prior study for comparison. FINDINGS: The liver, spleen, adrenal glands and pancreas are unremarkable. Gallbladder is unremarkab le. No biliary obstruction. Portal and splenic veins are patent. Kidneys enhance symmetrically. T here is no hydronephrosis. The uterus is not identified and has likely been surgically resected. T he bladder is unremarkable. There is no retroperitoneal or pelvic lymphadenopathy. Small umbilical f at-containing hernia. The appendix is normal. There is mild to moderate descending and sigmoid colonic diverticulosis. The re is no adjacent inflammatory change to suggest diverticulitis. There is small to moderate-sized gas troesophageal hiatal hernia. There is expected amount of colonic stool. No free intraperitoneal ga s. Mild cardiomegaly.. There are no pericardial or pleural effusions. The lung bases are unremark able. There are no osteoblastic or osteolytic lesions identified. IMPRESSION: 1. No acute intra-abdominal findings. 2. Mild to moderate colonic diverticulosis. 3. Small to moderate hiatal hernia. 4. Small umbilical hernia. Reviewed, dictated and finalized at location B.
== END 2021-09-19 15:11 | disposition home or self-care (01) ==
LOC: ANHIMG 15:11
PROVIDERS: Visit Provider Nurse Practitioner Family
DX: R10.9 Unspecified abdominal pain (principal); K57.90 Diverticulosis of intestine, part unspecified, without perforation or abscess without bleeding; K44.9 Diaphragmatic hernia without obstruction or gangrene; K42.9 Umbilical hernia without obstruction or gangrene
CPT/HCPCS: 74177; Q9967

== ENCOUNTER 2021-11-06 00:36 | Day surgery (SDC) | payer MEDICARE, SELFPAY ==
[2021-10-22 12:09] VITALS: BMI 28.3
[2021-11-06 09:52] VITALS: BP 151/78; PULSE 68; RESP 18; TEMP 36.8; O2SAT 98; BMI 27.7
[2021-11-06] MEDS: LACTATED RINGERS 1,000 ML 150 ML IV CONT (10:03)
--- NOTE | 2021-11-06 10:26 | PM.IMHP ---
H&P: HPI History of Present Illness Date/Time: 11/06/21 10:26 Chief Complaint: Abdominal pain Narrative: this is a 71-year-old white female patient I am asked to see for a colonoscopy. Patient notes intermittent lower left abdominal discomfort that is crampy in nature. Associated with irregular bowel movements. She denies any bleeding. She has no weight loss. She does notice pain worsens with anxiety. Patient states she had a screening colonoscopy 5 years ago that was unremarkable. Her family history is noncontributory. She presents today for colonoscopy because of pain. She does have a past medical history of Barretts esophagus. No dysplasia was evident on previous biopsies in 2019. Anticipate follow-up EGD in 2022. Review of Systems Review of Systems: Review of systems noncontributory. 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 Anxiety Barretts esophagus Chronic GERD Clawtoe, acquired Encounter for Postoperative Care Hallux valgus (acquired), right foot HTN (hypertension) Inflammatory arthritis Metatarsalgia of both feet Osteoarthritis Osteoporosis Overweight (BMI 25.0-29.9) PUD (peptic ulcer disease) Family History Family History Other Hypertension Social History Social History Smoking status: Never smoker Alcohol intake: current Drinks per week: 0 Alcohol use details: 1 drink yearly Substance use: never Substance use type: does not use Living arrangements: with family Spiritual care concerns: No Meds Home Medications and Allergies Home Medications Medication Instructions Recorded Confirmed Type amlodipine 10 mg tablet 10 mg PO DAILY 05/08/20 11/06/21 History biotin 5 mg tablet 10 mg PO DAILY 05/08/20 11/06/21 History escitalopram oxalate 20 mg tablet 20 mg PO DAILY 05/08/20 11/06/21 History hydrochlorothiazide 12.5 mg capsule 12.5 mg PO DAILY 05/08/20 11/06/21 History losartan 100 mg tablet 100 mg PO HS 05/08/20 11/06/21 History multivit with 1 tablet PO DAILY 05/08/20 11/06/21 History deeirkmc-nobv-OC-lutein 8 mg iron-400 mcg-300 mcg tablet (Centrum Silver Women) omega 4-fat-kbq-fish oil 1,200 mg 1 cap PO BID 05/08/20 11/06/21 History (144 mg-216 mg) capsule (Fish Oil) omeprazole 20 mg capsule,delayed 20 mg PO BID 05/08/20 11/06/21 History release trazodone 100 mg tablet 100 mg PO HS 05/08/20 11/06/21 History vitamin B complex 1 cap PO DAILY 05/08/20 11/06/21 History hydrocodone 10 mg-acetaminophen 1 tablet PO HS PRN Pain #30 tabs 04/11/21 11/06/21 Rx 325 mg tablet cyclosporine 0.05 % eye drops in a 1 drp EACH EYE BID 10/22/21 11/06/21 History dropperette (Restasis) Allergies Allergy/AdvReac Type Severity Reaction Status Date / Time No Known Allergies Allergy Verified 11/06/21 09:50 Vital Signs Vital Signs - 24 hr 11/06/21 09:52 Temperature 98.3 F Pulse Rate 68 Respiratory Rate 18 Blood Pressure 151/78 H Pulse Oximetry 98 Oxygen Delivery Room Air Exam Narrative: Physical exam reveals patient to be alert. Vital signs stable. HEENT exam is unremarkable. Patient is anicteric. Lungs are clear to auscultation and percussion. Heart is without murmur or extra sounds. Abdominal exam bowel sounds are present soft nontender with no organomegaly. Digital external rectal exam is normal. Assessment and Plan Assessment and plan (1) Barretts esophagus: Code(s): K22.70 - 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 Status: Acute Assessment and Plan: Patient with a history of Barretts esophagus. Currently has no symptoms of dysphagia weight loss bleeding or heartburn while taking PPI therapy. Follow-up EGD suggested 2022 and at 3 year intervals. (2) Abdominal pain: Code
--- NOTE | 2021-11-06 10:55 | WPDANESEPPF ---
Anes - Initial Pre Proc Eval Procedure: Operation Date: 11/06/21 11:00 Proposed Procedures p Colonoscopy - Rafael Bunch MD Date/Time: 11/06/21 10:55 Surgeon: Rafael Bunch MD Pre Op Diagnosis: left abdominal pain, abnormal CAT scan Patient Data Age: 71 Gender: F Height: 1.7 m Weight: 80.3 kg Last Vital Signs Temp 98.3 F 11/06/21 09:52 Pulse 68 11/06/21 09:52 Resp 18 11/06/21 09:52 BP 151/78 H 11/06/21 09:52 Pulse Ox 98 11/06/21 09:52 O2 Del Method Room Air 11/06/21 09:52 Allergies Allergy/AdvReac Type Severity Reaction Status Date / Time No Known Allergies Allergy Verified 11/06/21 09:50 Home Medications Medication Instructions Recorded Confirmed Type amlodipine 10 mg tablet 10 mg PO DAILY 05/08/20 11/06/21 History biotin 5 mg tablet 10 mg PO DAILY 05/08/20 11/06/21 History escitalopram oxalate 20 mg tablet 20 mg PO DAILY 05/08/20 11/06/21 History hydrochlorothiazide 12.5 mg capsule 12.5 mg PO DAILY 05/08/20 11/06/21 History losartan 100 mg tablet 100 mg PO HS 05/08/20 11/06/21 History multivit with 1 tablet PO DAILY 05/08/20 11/06/21 History ypeafecy-sbxr-ST-lutein 8 mg iron-400 mcg-300 mcg tablet (Centrum Silver Women) omega 2-nwi-yfg-fish oil 1,200 mg 1 cap PO BID 05/08/20 11/06/21 History (144 mg-216 mg) capsule (Fish Oil) omeprazole 20 mg capsule,delayed 20 mg PO BID 05/08/20 11/06/21 History release trazodone 100 mg tablet 100 mg PO HS 05/08/20 11/06/21 History vitamin B complex 1 cap PO DAILY 05/08/20 11/06/21 History hydrocodone 10 mg-acetaminophen 1 tablet PO HS PRN Pain #30 tabs 04/11/21 11/06/21 Rx 325 mg tablet cyclosporine 0.05 % eye drops in a 1 drp EACH EYE BID 10/22/21 11/06/21 History dropperette (Restasis) Patient hx anesthesia problems: none Family hx anesthesia problems: none Results Review: All pre-operative results and documents have been reviewed as part of the pre-operative evaluation. 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 Anxiety Barretts esophagus Chronic GERD Clawtoe, acquired Encounter for Postoperative Care Hallux valgus (acquired), right foot HTN (hypertension) Inflammatory arthritis Metatarsalgia of both feet Osteoarthritis Osteoporosis Overweight (BMI 25.0-29.9) PUD (peptic ulcer disease) Family History Family History Other Hypertension Social History Social History Smoking status: Never smoker Alcohol intake: current Drinks per week: 0 Alcohol use details: 1 drink yearly Substance use: never Substance use type: does not use Living arrangements: with family Spiritual care concerns: No Anes - Eval Final PreProcedure Day of Procedure 11/06/21 10:55 Patient weight: normal Heart: regular rate and rhythm Lungs: clear to auscultation Airway: Mallampati scale class II Neurological: alert and oriented Last oral intake: >/= 8 hours ASA classification: II Emergent: no Anesthetic plan: proceed Anesthesia type and monitoring: general GIVS and standard monitoring Results Review: All pre-operative results and documents have been reviewed as part of the pre-operative evaluation. Informed Consent: The patient's anesthetic plan and its attendant risks and benefits were discussed with the patient/family/POA. Questions were solicited and answers provided to the satisfaction of the patient/family/POA.
[2021-11-06 11:23] VITALS: BP 132/78; PULSE 67; RESP 26; O2SAT 96
[2021-11-06 11:33] VITALS: BP 125/76; PULSE 67; RESP 21; O2SAT 96
[2021-11-06 11:43] VITALS: BP 158/86; PULSE 61; RESP 20; O2SAT 98
== END 2021-11-06 11:53 | disposition home or self-care (01) ==
PROVIDERS: Visit Provider Internal Medicine Gastroenterology
PROC: 0DJD8ZZ Inspection of Lower Intestinal Tract, Via Natural or Artificial Opening Endoscopic (ICD-10-PCS; CPT 45378; principal; 2021-11-06 11:00)
DX: R10.32 Left lower quadrant pain (principal); K57.30 Diverticulosis of large intestine without perforation or abscess without bleeding; K64.8 Other hemorrhoids; F41.9 Anxiety disorder, unspecified; K22.70 Barrett's esophagus without dysplasia; K21.9 Gastro-esophageal reflux disease without esophagitis; I10 Essential (primary) hypertension; M81.0 Age-related osteoporosis without current pathological fracture; M19.90 Unspecified osteoarthritis, unspecified site; K27.9 Peptic ulcer, site unspecified, unspecified as acute or chronic, without hemorrhage or perforation
CPT/HCPCS: 45378; J2001; J2704; J7120

== ENCOUNTER → 2021-12-02 14:29 | Outpatient (REF) | payer MEDICARE, SELFPAY | LOC: ANHLAB 14:29 | PROVIDERS: Visit Provider Nurse Practitioner | DX: D49.2 Neoplasm of unspecified behavior of bone, soft tissue, and skin (principal) | CPT/HCPCS: 88305 ==

== ENCOUNTER 2021-12-26 14:30 | Outpatient (CLI) | payer MEDICARE, SELFPAY ==
--- NOTE | ~2021-12-26 | MM_ITS ---
EXAMINATION: MM screening [facility] BI w tonya HISTORY: Screening TECHNIQUE: Craniocaudal and mediolateral oblique 3-D tomosynthesis images were obtained and synthetic 2-D images were generated. CAD analysis was submitted and interpreted. COMPARISON: Comparison to multiple prior studies sequentially, with oldest reviewed study dated 09/03. . BREAST PARENCHYMAL COMPOSITION: There are scattered areas of fibroglandular density. FINDINGS: There is no evidence of suspicious mass, calcification, or architectural distortion to sugg est malignancy in either breast. There has been no suspicious interval change. IMPRESSION: 1. No mammographic evidence of malignancy. 2. Recommend routine screening mammography in one year. BI-RADS Category 1: Negative Reviewed, dictated and finalized at location A.
== END 2021-12-26 14:31 | disposition home or self-care (01) ==
DX: Z12.31 Encounter for screening mammogram for malignant neoplasm of breast (principal)
CPT/HCPCS: 77063; 77067

== ENCOUNTER → 2022-01-28 13:57 | Outpatient (CLI) | payer MEDICARE, SELFPAY ==
--- NOTE | ~2022-01-28 | DEXA_ITS ---
Bone Density Report Name: LIGIA OJEDA Age: 71 Sex: Female Ethnicity: White Date of : 1950 Indication: postmenopausal; screening for osteoporosis; prior fracture; hysterectomy; Referring Provider: ASHLEY DELGADILLO Study: Bone densitometry was performed. Exam Date: January 28, 2022 Accession number: [id number] Bone Density: Region BMD T-score Z-score Classification AP Spine (L1-L4) 0.900 -1.3 1.0 Osteopenia Femoral Neck (Left) 0.728 -1.1 0.9 Osteopenia Total Hip (Left) 0.813 -1.1 0.6 Osteopenia Femoral Neck (Right) 0.761 -0.8 1.2 Normal Total Hip (Right) 0.873 -0.6 1.1 Normal Total Hip Mean 0.843 -0.9 0.9 Normal World Health Organization criteria for BMD impression classify patients as: Normal (T-score at or above -1.0), Osteopenia (T-score between -1.0 and -2.5), or Osteoporosis (T-score at or below -2.5). 10-year Fracture Risk(1): Major Osteoporotic Fracture 15% Hip Fracture 2.0% Reported Risk Factors: [place] (), Neck BMD=0.728, BMI=28.9, previous fracture (1) FRAX(R) Version 3.08. Fracture probability calculated for an untreated patient. Fracture probability may be lower if the patient has received treatment. Clinical Information Provided by Patient: Has had a low trauma fracture Has used the following medications: Vitamin D Has the following medical conditions: Hysterectomy Patient maximum height was 67.5 Menopause Age: 41 No regular weight bearing exercise Drinks caffeinated beverages Onset of menses at age 11 Number of children 2 Impression: The patient has low bone mass, based on the Total Spine T-score. The patient has an estimated ten-year risk of hip fracture of 2% and an estimated ten-year risk of major fracture of 15%, based on the WHO FRAX algorithm. The patient has risk factors, including: previous fracture. Discussion: BONE DENSITY IS LOW AT ONE OR MORE SKELETAL SITES. This patient's lowest T-score is low at one or more skeletal sites. It meets the World Health Organization's (WHO) criteria for ?low bone mass? (T-score between -1.0 and -2.5). The patient's 10-year risk of fracture as calculated by FRAX is less than the threshold where pharmacological therapy is recommended by the National Osteoporosis Foundation (NOF). However, all treatment decisions require clinical judgment and consideration of individual patient factors, including patient preferences, comorbidities, previous drug use, risk factors not captured in the FRAX model (e.g., frailty, falls, vitamin D deficiency, increased bone turnover, interval significant decline in bone density) and possible under or overestimation of fracture risk by FRAX. The patient should follow a healthful lifestyle (good nutrition with adequate calcium and vitamin D, and appropriate weight-bearing exercise). Follow-Up:
== END ==
DX: N95.9 Unspecified menopausal and perimenopausal disorder (principal); M85.88 Other specified disorders of bone density and structure, other site; M85.852 Other specified disorders of bone density and structure, left thigh
CPT/HCPCS: 77080

== ENCOUNTER 2022-09-24 13:31 | Outpatient (CLI) | payer MEDICARE, SELFPAY ==
--- NOTE | ~2022-09-24 | CT_ITS ---
Noncontrast CT scan of the left shoulder CLINICAL HISTORY: Preoperative planning TECHNIQUE: Axial noncontrast imaging of the left shoulder was performed. Sagittal and coronal reforma tted images were constructed. Dose reduction technique was used on this scan by utilizing automated e xposure control and iterative reconstruction technique. The dose-length product (DLP) was 393.68 mGy- cm. Findings: No acute fracture or dislocation identified. There is severe glenohumeral joint osteoarthri tis, with large medial to inferomedial humeral head osteophyte. There is probable diffuse joint space narrowing of the glenohumeral joint with presumed underlying severe chondromalacia. There is promine nt subchondral cystic change and/or geode formation at the superior aspect of the humeral head. There is minimal degenerative change at the AC joint. No significant subacromial spur evident. Remaining osseous structures are intact. No gross soft tissue abnormality about the shoulder is seen. No muscle atrophy evident. IMPRESSION: Severe glenohumeral joint osteoarthritis, as detailed above. Reviewed, dictated and finalized at [facility].
== END 2022-09-24 13:32 | disposition home or self-care (01) ==
PROVIDERS: Visit Provider Orthopaedic Surgery
DX: M19.012 Primary osteoarthritis, left shoulder (principal)
CPT/HCPCS: 73200

== ENCOUNTER 2022-12-24 13:57 | Outpatient (CLI) | payer MEDICARE, SELFPAY ==
[2022-12-24 15:21] LABS: Basophils Absolute Auto 0.1 K/mm3 (0.0-0.1); Basophils Percent Auto 0.5 % (0.2-1.2); Eosinophils Absolute Auto 0.2 K/mm3 (0-0.3); Eosinophils Percent Auto 1.6 % (0-4.4); Hematocrit 37.9 % (37.0-47.0); Hemoglobin 12.8 g/dL (12.0-15.0); Immature Granulocyte Absolute 0.05 K/mm3 (0.00-0.031); Immature Granulocyte Percent A 0.5 % (0-0.5); Lymphocytes Percent Auto 21.4 % (18.3-44.2); Mean Corpuscular HGB Conc 33.8 g/dl (32-36); Mean Corpuscular Hemoglobin 29.6 pg (26-34); Mean Corpuscular Volume 87.7 fl (80-100); Mean Platelet Volume 9.9 fl (7.4-10.4); Monocytes Absolute Auto 0.8 K/mm3 (0.1-0.6); Monocytes Percent Auto 8.1 % (2.6-8.5); Neutrophils Percent Auto 67.9 % (45.5-73.1); Platelet Count Result 239 k/mm3 (150-375); Red Blood Count 4.32 M/mm3 (4.2-5.4); Red Cell Distribution Width 12.3 % (11.5-14.5); White Blood Count 10.3 K/mm3 (4.5-10.0)
[2022-12-24 15:37] LABS: Anion Gap 8 mmol/L (8-16); Blood Urea Nitrogen 22 mg/dL (7-17); Calcium 9.5 mg/dL (8.4-10.2); Carbon Dioxide 31 mmol/L (22-30); Chloride 99 mmol/L (98-107); Estimated Glomerular Filt Rate 49; Glucose 87 mg/dL (65-110); Sodium 138 mmol/L (137-145)
== END 2022-12-24 13:58 | disposition home or self-care (01) ==
LOC: ANHSURGERY 14:08
PROVIDERS: Anesthesiology; Visit Provider Orthopaedic Surgery
DX: M19.012 Primary osteoarthritis, left shoulder (principal); Z79.899 Other long term (current) drug therapy; Z01.818 Encounter for other preprocedural examination
CPT/HCPCS: 36415; 80048; 85025; 87081

== ENCOUNTER 2023-01-20 04:05 | Day surgery (SDC) | payer MEDICARE, SELFPAY ==
--- NOTE | 2022-12-24 13:22 | PC.NURSE ---
PRE-OP INSTRUCTIONS, PLEASE READ CAREFULLY Report to the Outpatient Waiting Room, entrance under the green pavilion located off [facility], at time _0830_ on date _01/20/23_. Planned Procedure Time: _1030_. PACK A SMALL OVERNIGHT BAG AND LEAVE IN THE CAR Time changes happen often and if your time is changed the preop area will call you the afternoon before. - You and your visitor will be asked to self-screen and do not enter if you have any COVID symptoms. - A mask is optional within the hospital at this time. -VISITING HOURS 8AM-8PM Patients may have clear liquids (water, carbonated beverages, clear teas, apple juice) until 3 hours prior to surgery (0730 AM) with a maximum of 20 ounces. - No food from midnight until time of surgery Take the following medications with a SIP of water the morning of surgery: _AMLODIPINE, ESCITALOPRAM, EYE DROPS,_ DO NOT STOP ANY OF YOUR OTHER PRESCRIPTION MEDICATIONS PRIOR TO SURGERY ?EXCEPT THE FOLLOWING Medications to discontinue per ANESTHESIA -_MULTIVITAMIN & OVER THE COUNTER SUPPLEMENTS 3 DAYS PRIOR TO SURGERY Date to take last dose_01/16/23_ Please no make-up, nail bhutanese, hairspray, perfume, deodorant, or body powder the day of surgery. No jewelry (including any body piercings) or valuables the day of surgery, leave them at home. Please take a shower or bath the night before, or the morning of, surgery with an antibacterial soap. Wear comfortable, loose fitting clothing. - Jewelry must be removed prior to entering the operating room. Rings and piercings that are not removed may be cut off. - The hospital will not accept responsibility for valuables. - Please leave all valuables, including medications, at home the day of surgery. If you are going home after surgery, a licensed port cdl a driver must drive you home. - NO public transportation without another adult if you receive anesthesia. - We recommend that an adult stay with you for 24 hours following discharge. - We also recommend that you do not drive, make important decision, drink alcoholic beverages, or take any drugs that were not prescribed by your health care provider for at least 24 hours after your discharge time. Follow any additional instructions given to you from your surgeon. If you or anyone in your household have experienced Covid symptoms in the past week, please notify your surgeon or the nurse liaison at the phone number below for possible testing. Instructions given to _PATIENT_and asked if any additional questions and then verbalized understanding. Patient advised to call surgeon office or pre surgery nurse liaison [phone] if any additional questions.
[2022-12-24 14:25] VITALS: BP 126/70; PULSE 66; RESP 18; TEMP 36.6; O2SAT 95; BMI 29.7
[2023-01-20] VITALS (13 sets, daily range): BP systolic 117–140; BP diastolic 59–73; PULSE 64–82; RESP 14–20; TEMP 36.3–37.3; O2SAT 90–98
--- NOTE | ~2023-01-20 | XR_ITS ---
EXAMINATION: XR shoulder LT min 2V DATE: 01/20/2023 13:44 INDICATION: Reverse total left shoulder arthroplasty. Postop. TECHNIQUE: 2 views of left shoulder were obtained. COMPARISON: Left shoulder radiographs 09/18/2022 FINDINGS: There is a reverse ntyu-qkk-owtjfk total left shoulder arthroplasty in near-anatomic alignm ent. No fracture. IMPRESSION: 1. Reverse jnhb-rtg-pfilyq total left shoulder arthroplasty in near-anatomic alignment. Reviewed, dictated and finalized at location A. IMPRESSION: 1. Reverse nwao-kne-tiisyd total left shoulder arthroplasty in near-anatomic al ignment.
--- NOTE | 2023-01-20 07:09 | WPDHPUPDATE1 ---
History and Physical Update Update Date/Time: 01/20/23 07:09 History and Physical has been reviewed, including an updated exam of the patient. There are NO changes in the patient's condition. Risks, benefits, and alternatives have been discussed and questions answered. Patient agrees to proceed with procedure.
[2023-01-20] MEDS: ACETAMINOPHEN 500 MG TABLET 1000 MG PO ×3 (09:16→20:59)
--- NOTE | 2023-01-20 09:32 | WPDANESEPPF ---
Anes - Initial Pre Proc Eval Procedure: Operation Date: 01/20/23 10:30 Proposed Procedures p Left Reverse Total Shoulder Arthroplasty - Troy Hart MD Date/Time: 01/20/23 09:32 Surgeon: Troy Hart MD Pre Op Diagnosis: left shoulder arthritis Patient Data Age: 72 Gender: F Height: 1.7 m Weight: 85.5 kg Last Vital Signs Temp 36.8 C 01/20/23 08:41 Pulse 69 01/20/23 08:41 Resp 16 01/20/23 08:41 BP 139/66 01/20/23 08:41 Pulse Ox 94 01/20/23 08:41 O2 Del Method Room Air 01/20/23 08:41 Allergies Allergy/AdvReac Type Severity Reaction Status Date / Time No Known Allergies Allergy Verified 01/20/23 09:00 Home Medications Medication Instructions Recorded Confirmed Type amlodipine 10 mg tablet 10 mg PO DAILY 05/08/20 01/20/23 History biotin 5 mg tablet 10 mg PO DAILY 05/08/20 01/20/23 History escitalopram oxalate 20 mg tablet 20 mg PO DAILY 05/08/20 01/20/23 History hydrochlorothiazide 12.5 mg capsule 12.5 mg PO DAILY 05/08/20 01/20/23 History losartan 100 mg tablet 100 mg PO HS 05/08/20 01/20/23 History pgtrkynh-zpfk-lnvp 8 mg-folic 400 1 tablet PO DAILY 05/08/20 01/20/23 History mcg-K 50 mcg-lutein 300 mcg tablet (Centrum Silver Women) omega 7-jxx-ecb-fish oil 1,200 mg 1 cap PO BID 05/08/20 01/20/23 History (144 mg-216 mg) capsule (Fish Oil) omeprazole 20 mg capsule,delayed 20 mg PO BID 05/08/20 01/20/23 History release trazodone 100 mg tablet 100 mg PO HS 05/08/20 01/20/23 History vitamin B complex 1 cap PO DAILY 05/08/20 01/20/23 History hydrocodone 10 mg-acetaminophen 1 tablet PO HS PRN Pain #30 tabs 04/11/21 01/20/23 Rx 325 mg tablet cyclosporine 0.05 % eye drops in a 1 drp EACH EYE BID 10/22/21 01/20/23 History dropperette (Restasis) rosuvastatin 5 mg tablet 5 mg PO DAILY 10/15/22 01/20/23 History celecoxib 200 mg capsule 200 mg PO DAILY #90 caps 11/28/22 01/20/23 Rx Patient hx anesthesia problems: none Family hx anesthesia problems: none Results Review: All pre-operative results and documents have been reviewed as part of the pre-operative evaluation. 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 Anxiety Barretts esophagus Chronic GERD Clawtoe, acquired COPD (chronic obstructive pulmonary disease) Encounter for Postoperative Care Hallux valgus (acquired), right foot HTN (hypertension) Inflammatory arthritis Metatarsalgia of both feet Osteoarthritis Osteoporosis Overweight (BMI 25.0-29.9) PUD (peptic ulcer disease) Surgical History Surgical History History of bunionectomy of left great toe (~04/2021) History of bunionectomy of right great toe (~12/2019) History of medial meniscus repair of right knee (~2017) Family History Family History Mother Cancer of lymph nodes, secondary Father Cancer Sibling Tongue cancer Other Hypertension Social History Social History Smoking status: Never smoker Second hand tobacco smoke exposure: No Alcohol intake: current Drinks per week: 0 Alcohol use details: 1 DRINK/YEAR Substance use: never Substance use type: does not use Lack of Transportation: No Lack of Food: Never True Current Housing: I Have Housing Concerned About Future Housing: No Difficulty Paying Gas/Electric Bills: No Difficulty Paying for Meds: No Currently Unemployed: No Education: High School Diploma/GED Difficulty w/ Childcare or Family Care: No Living arrangements: with family Additional living arrangements comments: PT LIVES WITH 2 DAUGHTERS (SALVADOR & LELO) ALONG WITH SIGNIFICANT OTHER RICKI [place]ARA Spiritual care concerns: No Anes - Eval Final PreProcedure Day of Procedure
[2023-01-20] MEDS: TRANEXAMIC ACID 1,000MG/ISO100 1,000 MG/100 ML BAG 200 MG IVPB (10:09)
[2023-01-20] MEDS: LACTATED RINGERS 1,000 ML 30 ML IV CONT ×2 (10:12→13:33)
[2023-01-20] MEDS: ceFAZolin 2 GM/D5W 50 ML 2 GM/50 ML BAG IVPB ×2 (10:53→19:10)
[2023-01-20] MEDS: fentaNYL CITRATE INJ (*CRX) 100 MCG/2 ML VIAL 25 MCG IV PUSH ×6 (13:43→14:08)
[2023-01-20] MEDS: HYDROmorphone HCL INJ (*CRX) 1 MG/ML SYR 0.5 MG IV PUSH (14:20)
--- NOTE | 2023-01-20 15:34 | W.PM.PROC2 ---
Procedure Note - Detailed Date of Procedure 01/20/23 Pre-op Diagnosis left shoulder glenohumeral arthritis Post-op Diagnosis Same Procedure Performed Reverse total shoulder arthroplasty, left. Surgeon Troy Hart MD Anesthesia General and Regional (Interscalene block.) Findings Good bone quality. Large humeral spur. No contracture. Intact cuff. Subscapularis repaired without tension. 5 degree augmented baseplate. Description of Procedure The patient was given an interscalene block in the preoperative area. Preoperative antibiotics were given. The patient was transferred to the operating room and a general anesthetic was administered. The beach chair position was used at 45 degrees. All bony prominences were padded. The head was carefully stabilized on the [facility] transportation department head. A sterile prep and drape was performed in the usual manner with ChloraPrep. A longitudinal incision was created at the anterior shoulder just lateral to the deltopectoral interval. Hydrogen peroxide was placed on the incision and then rinsed after one minute. Careful dissection was performed to expose the interval and protect the cephalic vein. The vein was retracted medially. Anterior circumflex vessel branches were suture ligated. The biceps was tenotomized. A subscapularis tenotomy was performed. The inferior capsule was released, exposing the humeral head. Osteophytes were removed. Care was taken to stay on bone to protect the axillary nerve. The anatomic head cut was taken with the oscillating saw. The guide pin was placed, central drilling performed, and the broach trial inserted. The neck anteversion and inclination were carefully assessed. The cut protector was placed, and attention was turned to the glenoid. Retractors were placed. Releases were carried out for exposure. The subscapularis was mobilized, the inferior capsule and long head of triceps released, and the superior and middle glenohumeral ligaments released as well. Labral tissue was resected as needed. The sizing template was used to assess the baseplate position low on the glenoid. A guide pin was placed. Minimal reaming was used to accomplish a flat surface without violating the subchondral bone. Version was corrected according to preoperative templating. The boss was drilled, and the real component was impacted into position. Supplemental locking screws were placed centrally, superiorly, and inferiorly. The glenosphere was impacted into the taper. The proximal humerus was reamed for the inset component. The humeral components were trialed. The real humeral stem, tray, and insert were impacted into position. The shoulder was copiously irrigated periodically with pulsatile lavage. The shoulder was reduced and stability confirmed. The subscapularis tenotomy was repaired without tension. The deltopectoral space was reapproximated with number 1 Vicryl. The remaining tissue was closed with 0 Quill and 2-0 Quill running suture and steri-strips. A sterile silver occlusive dressing and shoulder immobilizer were placed. The patient was transferred to the recovery room. Implants Shoulder [employer] reverse TSA size 1 stem. +0 polyethylene insert. 5 degree augmented baseplate. 33 +3 offset mm glenosphere. Estimated Blood Loss 100 Drains No Pathology None sent Complications No immediate complications Condition Stable Disposition PACU [facility] Billing Surgery - Charge Forward: Surgery Billing
[2023-01-20] MEDS: CYCLOBENZAPRINE HCL 10 MG TABLET PO (15:39)
[2023-01-20] MEDS: SODIUM CHLORIDE 0.9% IV 1,000 ML 125 ML IV CONT (15:39)
[2023-01-20] MEDS: oxyCODONE HCL (*CRX) 5 MG TAB IR 10 MG PO ×2 (16:36→21:00)
[2023-01-20] MEDS: ASPIRIN 81 MG ENTERIC TABLET PO (16:36)
[2023-01-20] MEDS: SENNA/DOCUSATE SODIUM TABLET 2 TAB PO (16:36)
--- NOTE | 2023-01-20 17:57 | ADMGEN ---
This patient, Nissa Thao, was admitted to Medical Room 258-. Patient/family oriented to hospital policies and general routines including ID bracelet, bed and alarms, visiting hours, pain management, procedures, bathroom and other care routines, personal items, smoking policy, room service/diet, and visiting hours. Information on how to activate the Rapid Response Team has been discussed. Patient/Family are encouraged to report perceived risks to care and to ask questions if they do not understand what they are told or what they should do.
--- NOTE | 2023-01-20 19:24 | PC.NURSE ---
01/20/231899 Called Dr. Hart to verify if patient needs weight baring status for left shoulder. Hailey stated no needs to add weight baring status.
[2023-01-20] MEDS: LOSARTAN POTASSIUM 100 MG TABLET PO (21:00)
[2023-01-20] MEDS: traZODone HCL 50 MG TABLET 100 MG PO (21:00)
[2023-01-20] MEDS: PANTOPRAZOLE 40 MG TABLET PO (21:00)
[2023-01-21 00:39] VITALS: BP 108/58; PULSE 76; RESP 20; TEMP 36.3; O2SAT 90
[2023-01-21] MEDS: oxyCODONE HCL (*CRX) 5 MG TAB IR PO (01:07)
[2023-01-21] MEDS: ceFAZolin 2 GM/D5W 50 ML 2 GM/50 ML BAG IVPB ×2 (03:32→11:26)
[2023-01-21] MEDS: ACETAMINOPHEN 500 MG TABLET 1000 MG PO ×2 (03:33→09:23)
[2023-01-21 03:45] VITALS: BP 124/57; PULSE 65; RESP 20; TEMP 36.6; O2SAT 90
[2023-01-21 05:05] LABS: Basophils Percent Auto 0.2 % (0.2-1.2); Hematocrit 32.9 % (37.0-47.0); Hemoglobin 10.9 g/dL (12.0-15.0); Immature Granulocyte Absolute 0.08 K/mm3 (0.00-0.031); Immature Granulocyte Percent A 0.5 % (0-0.5); Lymphocytes Absolute Auto 1.04 K/mm3 (0.9-3.2); Lymphocytes Percent Auto 6.3 % (18.3-44.2); Mean Corpuscular HGB Conc 33.1 g/dl (32-36); Mean Corpuscular Hemoglobin 30.4 pg (26-34); Mean Corpuscular Volume 91.6 fl (80-100); Mean Platelet Volume 10.2 fl (7.4-10.4); Monocytes Absolute Auto 1.1 K/mm3 (0.1-0.6); Monocytes Percent Auto 6.8 % (2.6-8.5); Neutrophils Absolute Auto 14.3 K/mm3 (1.3-6.7); Neutrophils Percent Auto 86.2 % (45.5-73.1); Platelet Count Result 189 k/mm3 (150-375); Red Blood Count 3.59 M/mm3 (4.2-5.4); Red Cell Distribution Width 12.4 % (11.5-14.5); White Blood Count 16.6 K/mm3 (4.5-10.0)
[2023-01-21 05:17] LABS: Anion Gap 5 mmol/L (8-16); Blood Urea Nitrogen 23 mg/dL (7-17); Calcium 8.5 mg/dL (8.4-10.2); Carbon Dioxide 28 mmol/L (22-30); Chloride 101 mmol/L (98-107); Estimated CRCL calculation 45 ml/min; Estimated Glomerular Filt Rate 49; Glucose 116 mg/dL (65-110); Sodium 134 mmol/L (137-145)
[2023-01-21] MEDS: oxyCODONE HCL (*CRX) 5 MG TAB IR 10 MG PO ×2 (08:19→13:19)
[2023-01-21] MEDS: ESCITALOPRAM OXALATE 10 MG TABLET 20 MG PO (08:19)
[2023-01-21] MEDS: SENNA/DOCUSATE SODIUM TABLET 2 TAB PO (08:20)
[2023-01-21] MEDS: ROSUVASTATIN 5 MG TABLET PO (08:20)
[2023-01-21] MEDS: CELECOXIB 200 MG CAPSULE PO (08:20)
[2023-01-21] MEDS: PANTOPRAZOLE 40 MG TABLET PO (08:20)
[2023-01-21] MEDS: polyethylene glycoL 3350 17 GM POWD.PACK PO (08:20)
[2023-01-21] MEDS: amLODIPine BESYLATE 5 MG TABLET 10 MG PO (08:20)
[2023-01-21] MEDS: hydroCHLOROthiazide 12.5 MG CAPSULE PO (08:20)
[2023-01-21] MEDS: ASPIRIN 81 MG ENTERIC TABLET PO (08:20)
--- NOTE | 2023-01-21 08:31 | PM.DS ---
DS: Admitting Diagnosis Discharge Date 01/21/23 Admitting Diagnosis Left glenohumeral joint arthritis. DS: Discharge Diagnosis Discharge Diagnosis (1) Status post reverse total arthroplasty of left shoulder: Code(s): Z96.612 - Presence of left artificial shoulder joint Status: Acute Plan Postop day 1: Left reverse total shoulder arthroplasty. Patient tolerated procedure well. No complications. Pain manageable with pain medication. No numbness or tingling. We had a lengthy discussion regarding postoperative wound care, limitations, expectations, and exercises. Patient shows good understanding. She has had initial physical therapy and is tolerating it well. DVT prophylaxis: 81 mg baby aspirin b.i.d. for 14 days. Pain medication: Percocet. Celebrex. Patient has followup appointment with Dr. Hart in 3 weeks. DS: Summary Hospital Course Hospital Course: She has had initial PT/OT and tolerating it well. No complications. Status at Discharge Functional status at discharge: independent ambulation Overall status at discharge: patient is progressing back to baseline Time Spent with Patient Time attestation: Total time spent providing and/or coordinating discharge services: Exam Narrative: Overweight 72 y/o female. Resting comfortably in chair. Wearing sling. Dressing dry and intact with no drainage. Moderate swelling. Moderate ecchymosis. No erythema. No hematoma. Range of motion limited due to pain. Calf nontender. Neurologic status intact. No varicosities. Distal pulses palpable. DS: Data Data Completed and Pending Labs on day of discharge: Labs from last 24 hours 01/21/23 01/20/23 04:31 08:47 WBC 16.6 H RBC 3.59 L Hgb 10.9 L Hct 32.9 L MCV 91.6 MCH 30.4 MCHC 33.1 RDW 12.4 Plt Count 189 MPV 10.2 Immature Gran % (Auto) 0.5 Neut % (Auto) 86.2 H Lymph % (Auto) 6.3 L [place] % (Auto) 6.8 Eos % (Auto) 0.0 Baso % (Auto) 0.2 Lymph # (Auto) 1.04 [place] # (Auto) 1.1 H Eos # (Auto) 0.0 Baso # (Auto) 0.0 Abs Immat Gran (auto) 0.08 H Absolute Neuts (auto) 14.3 H Absolute Nucleated RBC 0.0 Nucleated RBC % 0.0 Sodium 134 L Potassium 4.0 Chloride 101 Carbon Dioxide 28 Anion Gap 5 L BUN 23 H Creatinine 1.10 H Estim Creat Clear Calc 45 Estimated GFR 49 L Glucose 116 H Calcium 8.5 Blood Type O Negative Antibody Screen Negative Discharge Plan Discharge Patient Disposition: Home, Self-Care Discharge Instructions: See green instruction sheets Stand Alone Forms: General Discharge Instructions Follow-up/Referrals: Abbi Field PA [Physician Vascular Ultrasound Technologist] - Discharge Medications: New oxycodone-acetaminophen 5-325 mg tablet 1 - 2 tablet PO Q4-6H MDD 6 PRN (Reason: pain) Qty: 30 0RF aspirin 81 mg tablet,delayed release (DR/EC) 81 mg PO BID 14 Days Qty: 28 0RF Continued rosuvastatin 5 mg tablet 5 mg PO DAILY hydrocodone-acetaminophen 10-325 mg tablet 1 tablet PO HS PRN (Reason: Pain) Qty: 30 0RF cyclosporine [Restasis] 0.05 % dropperette 1 drp EACH EYE BID trazodone 100 mg tablet 100 mg PO HS amlodipine 10 mg tablet 10 mg PO DAILY hydrochlorothiazide 12.5 mg capsule 12.5 mg PO DAILY omeprazole 20 mg capsule,delayed release(DR/EC) 20 mg PO BID losartan 100 mg tablet 100 mg PO HS vitamin B complex Capsule 1 cap PO DAILY escitalopram oxalate 20 mg tablet 20 mg PO DAILY biotin 5 mg Tablet 10 mg PO DAILY omega 3-mxe-qnq-fish oil [Fish Oil] 1,200 (144-216) mg Capsule 1 cap PO BID Centrum Silver Women 8 mg iron-400 mcg-300 mcg Tablet 1 tablet PO DAILY celecoxib 200 mg capsule 200 mg PO DAILY Qty: 90 2RF
[2023-01-21 10:55] VITALS: BP 108/50; PULSE 67; RESP 16; TEMP 36.8; O2SAT 94
--- NOTE | 2023-01-21 13:41 | PC.NURSE ---
Pt refused to use the Cryo Cuff and refused to take it home. Tried to educate pt on benefits but pt didn't want it.
== END 2023-01-21 13:30 | disposition home or self-care (01) ==
LOC: ANHSURGERY 12:47 → ANH2MED 15:09
PROVIDERS: Physician Assistant Surgical; Visit Provider Orthopaedic Surgery
PROC: (CPT 23472; principal; 2023-01-20 10:30)
DX: M19.012 Primary osteoarthritis, left shoulder (principal); I10 Essential (primary) hypertension; J44.9 Chronic obstructive pulmonary disease, unspecified; K21.9 Gastro-esophageal reflux disease without esophagitis; F41.9 Anxiety disorder, unspecified; M81.0 Age-related osteoporosis without current pathological fracture
CPT/HCPCS: 23472; 36415; 73030; 80048; 85025; 86850; 86900; 86901; 87081; 97110; 97161; 97165; 97530; 97535; A4565; A9270; C1776; J0171; J0690; J1100; J1170; J1885; J2250; J2270; J2405; J2704; J2795; J3010; J3370; J7030; J7120

== ENCOUNTER 2023-03-04 15:21 | Outpatient (CLI) | payer MEDICARE, SELFPAY ==
--- NOTE | ~2023-03-04 | MM_ITS ---
EXAMINATION: MM screening [facility] BI w tonya HISTORY: Screening mammogram TECHNIQUE: Craniocaudal and mediolateral oblique 3-D tomosynthesis images were obtained and synthetic 2-D images were generated. CAD analysis was submitted and interpreted. COMPARISON: 12/26/2021, 11/22/2020 BREAST PARENCHYMAL COMPOSITION: There are scattered areas of fibroglandular density. FINDINGS: There is no evidence of suspicious mass, calcification, or architectural distortion to sugg est malignancy in either breast. There has been no suspicious interval change. IMPRESSION: 1. No mammographic evidence of malignancy. 2. Recommend routine screening mammography in one year. BI-RADS Category 1: Negative Reviewed, dictated and finalized at location A.
== END 2023-03-04 15:22 | disposition home or self-care (01) ==
LOC: ANHIMG 15:25
DX: Z12.31 Encounter for screening mammogram for malignant neoplasm of breast (principal)
CPT/HCPCS: 77063; 77067

== ENCOUNTER 2023-04-17 15:34 | Inpatient (IN) | payer MEDICARE, SELFPAY ==
[2023-04-17] VITALS (9 sets, daily range): BP systolic 133–154; BP diastolic 70–78; PULSE 61–78; RESP 13–18; TEMP 36.6–36.8; O2SAT 89–99; BMI 29.7
--- NOTE | ~2023-04-17 | XR_ITS ---
EXAMINATION: XR surgery orthopedic DATE: 04/18/2023 08:41 INDICATION: Left femoral neck fracture. TECHNIQUE: 2 intraoperative spot fluoroscopic views of left hip were obtained. I was not present. Flu oroscopy exposure time was 195 seconds. COMPARISON: Left hip radiographs 04/17/2023 FINDINGS: There is a transcervical fracture of left femoral neck. The distal fracture fragment demons trates mild lateral and anterior displacement. Internal fixation is seen with 3 lag screws. There is moderate left hip osteoarthritis. IMPRESSION: 1. Transcervical fracture of left femoral neck status post screw fixation. 2. Moderate left hip osteoarthritis. Reviewed, dictated and finalized at location A. A'S HELPER
--- NOTE | ~2023-04-17 | XR_ITS ---
EXAMINATION: XR hand RT min 3V INDICATION: Right hand pain TECHNIQUE: Three views of the right hand are obtained. COMPARISON: None available FINDINGS: There is advanced osteoarthritis at the second and third metacarpophalangeal joints and in multiple interphalangeal joints. No fracture is identified. The soft tissues are unremarkable. IMPRESSION: 1. Polyarticular osteoarthritis without acute osseous abnormality. Reviewed, dictated and finalized at location B. EATION CENTER DIRECTOR
--- NOTE | ~2023-04-17 | XR_ITS ---
EXAMINATION: XR hip LT 2V w AP pelvis DATE: 04/17/2023 16:07 INDICATION: Left hip pain. Fall. TECHNIQUE: An anteroposterior view of the pelvis and 2 views of left hip were obtained. COMPARISON: Pelvis and right hip radiographs 09/25/2015 FINDINGS: There is a transcervical fracture of left femoral neck. The distal fracture fragment demons trates near-anatomic alignment. There is mild right hip osteoarthritis and moderate left hip osteoart hrosis. IMPRESSION: 1. Transcervical fracture of left femoral neck. 2. Mild right hip osteoarthritis and moderate left hip osteoarthritis. Reviewed, dictated and finalized at location E. TECHNIC ASSEMBLER
--- NOTE | ~2023-04-17 | XR_ITS ---
EXAMINATION: XR chest 1V portable Exam Date/Time: 04/19/2023 18:19 PATIENT ACCOUNT REPRESENTATIVE HISTORY: hypoxia; recent hip surg Comparison: 04/17/2023. RESULT: Lines, tubes, and devices: Uncomplicated appearing left shoulder arthroplasty hardware. Lungs and pleura: Senescent changes. Left hemidiaphragm elevation. Streaky bibasilar opacities, grea ter in the left lung. Trace blunting of the left costophrenic angle. Cardiomediastinal silhouette: Stable. Other: No acute osseous or upper abdominal finding. IMPRESSION: Senescent changes, with bibasilar atelectasis/scar. Possible small left pleural effusion. Reviewed, dictated and finalized at location K. ENT ACCOUNT REPRESENTATIVE
--- NOTE | ~2023-04-17 | XR_ITS ---
EXAMINATION: XR chest 1V DATE: 04/17/2023 16:07 INDICATION: Hiatal hernia. Preop. TECHNIQUE: A single frontal view of the chest was obtained. COMPARISON: CT abdomen and pelvis 09/19/2021, chest single view 09/25/2015 FINDINGS: There is no pneumonia, pleural effusion, or pneumothorax. Cardiomegaly is noted. There is a left shoulder arthroplasty. IMPRESSION: 1. Cardiomegaly. Reviewed, dictated and finalized at location E. L WINDOW SCREEN ASSEMBLER IMPRESSION: 1. Cardiomegaly.
--- NOTE | 2023-04-17 15:48 | ECG_ITS ---
Measurements Intervals [place] Rate: 59 P: 23 MS: 143 QRS: 20 QRSD: 110 T: 9 QT: 446 QTc: 444 Interpretive Statements SINUS BRADYCARDIA NONSPECIFIC T-WAVE ABNORMALITY- ANT/INF LEADS BASELINE ARTIFACT- I, III, AVL, V5 BORDERLINE ECG COMPARED TO ECG 03/04/2019 13:55:22 SINUS BRADYCARDIA NOW PRESENT NO SIGNIFICANT CHANGES Electronically Signed On 04-17-2023 16:24:03 AGRICULTURAL EDUCATION PROFESSOR by Sami Dodd D.O.
--- NOTE | 2023-04-17 16:43 | ED.FALL ---
HPI - Fall General Chief Complaint: Fall Stated Complaint: fall - hip pain Time Seen by Provider: 04/17/23 15:45 History of Present Illness HPI Narrative: Patient is a 72-year-old female presenting after a fall. States that she was walking down carpeted stairs when she slipped and was unable to stop herself. She landed on her left hip and caught herself with her right hand. States she had immediate severe pain in the left hip. Unable to ambulate. She did not strike her head or lose consciousness. No neck or back pain. No chest or abdominal pain. No further complaints. Related Data Home Medications Medication Instructions Recorded Confirmed amlodipine 10 mg tablet 10 mg PO DAILY 05/08/20 04/17/23 biotin 5 mg tablet 10 mg PO DAILY 05/08/20 04/17/23 escitalopram oxalate 20 mg tablet 20 mg PO DAILY 05/08/20 04/17/23 hydrochlorothiazide 12.5 mg capsule 12.5 mg PO DAILY 05/08/20 04/17/23 losartan 100 mg tablet 100 mg PO HS 05/08/20 04/17/23 vdtupyjb-laex-qskq 8 mg-folic 400 1 tablet PO DAILY 05/08/20 04/17/23 mcg-K 50 mcg-lutein 300 mcg tablet (Centrum Silver Women) omega 6-kaw-pre-fish oil 1,200 mg 1 cap PO BID 05/08/20 04/17/23 (144 mg-216 mg) capsule (Fish Oil) omeprazole 20 mg capsule,delayed 20 mg PO BID 05/08/20 04/17/23 release trazodone 100 mg tablet 100 mg PO HS 05/08/20 04/17/23 vitamin B complex 1 cap PO DAILY 05/08/20 04/17/23 cyclosporine 0.05 % eye drops in a 1 drp EACH EYE BID 10/22/21 04/17/23 dropperette (Restasis) rosuvastatin 5 mg tablet 5 mg PO DAILY 10/15/22 04/17/23 Allergies Allergy/AdvReac Type Severity Reaction Status Date / Time No Known Allergies Allergy Verified 02/11/23 13:15 Review of Systems Review of Systems: All systems reviewed & are unremarkable except as noted in HPI and below PMFSH Past Medical History Medical History Anxiety Barretts esophagus Chronic GERD Hyperlipidemia Hypertension Inflammatory arthritis Osteoarthritis Osteoporosis Overweight (BMI 25.0-29.9) Peptic ulcer (2010) Surgical History Surgical History History of bilateral cataract extraction History of bunionectomy of left great toe (~04/2021) History of bunionectomy of right great toe (~12/2019) History of medial meniscus repair of right knee (~2017) History of reverse total replacement of left shoulder joint (~01/20/23) Family History Family History Mother Cancer of lymph nodes, secondary Father Cancer Sibling Tongue cancer Other Hypertension Social History Social History Social History: Surrogate medical decision maker: Jeri Ge, daughter. Code status: Full code. Smoking status: Never smoker Second hand tobacco smoke exposure: No Alcohol intake: current Drinks per week: 0 Alcohol use details: 1 DRINK/YEAR Substance use: never Substance use type: does not use Lack of Transportation: No Lack of Food: Never True Current Housing: I Have Housing Concerned About Future Housing: No Difficulty Paying Gas/Electric Bills: No Difficulty Paying for Meds: No Currently Unemployed: No Education: High School Diploma/GED Difficulty w/ Childcare or Family Care: No Living arrangements: with family Additional living arrangements comments: Lives with daughters, grandson, and significant other. Additional occupation/education comments: Retired. Spiritual care concerns: No Exam Narrative: GENERAL: In no acute distress, pleasant and cooperative HEAD: Normocephalic, atraumatic. EYES: PERRLA and EOMI. ENT: Grossly unremarkable NECK: Supple. No midline tenderness CHEST: Clear to auscultation. No respiratory distress. HEART: Regular rate and rhythm ABDOMEN: Soft, nontender, nondistended EXTREMITIES: Left hip tender with pa
[2023-04-17] MEDS: HYDROmorphone HCL INJ (*CRX) 1 MG/ML SYR 0.5 MG IV PUSH ×3 (16:46→22:23)
[2023-04-17 17:04] LABS: Basophils Absolute Auto 0.1 K/mm3 (0.0-0.1); Basophils Percent Auto 0.4 % (0.2-1.2); Eosinophils Absolute Auto 0.1 K/mm3 (0-0.3); Eosinophils Percent Auto 0.7 % (0-4.4); Hematocrit 37.9 % (37.0-47.0); Hemoglobin 12.7 g/dL (12.0-15.0); Immature Granulocyte Absolute 0.06 K/mm3 (0.00-0.031); Immature Granulocyte Percent A 0.5 % (0-0.5); Lymphocytes Absolute Auto 1.41 K/mm3 (0.9-3.2); Lymphocytes Percent Auto 10.8 % (18.3-44.2); Mean Corpuscular HGB Conc 33.5 g/dl (32-36); Mean Corpuscular Hemoglobin 29.3 pg (26-34); Mean Corpuscular Volume 87.3 fl (80-100); Mean Platelet Volume 9.7 fl (7.4-10.4); Monocytes Absolute Auto 0.8 K/mm3 (0.1-0.6); Monocytes Percent Auto 5.8 % (2.6-8.5); Neutrophils Absolute Auto 10.7 K/mm3 (1.3-6.7); Neutrophils Percent Auto 81.8 % (45.5-73.1); Platelet Count Result 194 k/mm3 (150-375); Red Blood Count 4.34 M/mm3 (4.2-5.4); Red Cell Distribution Width 12.5 % (11.5-14.5); White Blood Count 13.1 K/mm3 (4.5-10.0)
[2023-04-17 17:14] LABS: Anion Gap 14 mmol/L (8-16); Blood Urea Nitrogen 15 mg/dL (7-17); Calcium 9.9 mg/dL (8.4-10.2); Carbon Dioxide 26 mmol/L (22-30); Chloride 100 mmol/L (98-107); Estimated CRCL calculation 55 ml/min; Estimated Glomerular Filt Rate 54; Glucose 101 mg/dL (65-110); Potassium 3.6 mmol/L (3.4-5.0); Sodium 140 mmol/L (137-145)
[2023-04-17 17:16] LABS: Prothrombin Time 13.5 Seconds (11.1-14.7)
[2023-04-17 17:17] LABS: Partial Thromboplastin Time 27.8 SECONDS (22.3-36.8)
--- NOTE | 2023-04-17 17:44 | PM.IMHP ---
H&P: HPI History of Present Illness Date/Time: 04/17/23 18:00 Chief Complaint: Left hip pain after a fall. Narrative: This is a pleasant 72-year-old female with hypertension, dyslipidemia, chronic obstructive pulmonary disease, and anxiety who presented to the emergency department via EMS from home for evaluation of left hip pain after fall. The patient provides the following history. She was getting ready to leave the house to go to [facility] when she slipped on the carpeted steps and tumbled down 4 steps before landing on her left side. She had immediate pain in that left hip and in her right hand which she apparently used to try to steady herself. She denies head trauma and loss of consciousness in the fall. She has no complaints of neck, back, chest, or abdominal pain on arrival. Hip and pelvis x-ray showed a transcervical fracture of the left femoral neck and she is being admitted in this setting for pain control and orthopedic consultation. Of note the patient had a Lexiscan stress test in November 2022 for preoperative clearance (left shoulder replacement) which showed no diagnostic ST changes and probably normal myocardial perfusion imaging with no reversible myocardial ischemia and an EF of 79%. Review of Systems Review of Systems: Twelve systems were reviewed. No recent cold or flu symptoms. No syncope or near syncope. She denies exertional chest pain, shortness a breath, orthopnea, and paroxysmal nocturnal dyspnea. No known history of cardiac disease or dysrhythmia. Appetite has been good. No nausea, vomiting, diarrhea, or dysuria. She denies paresthesias, skin color, and temperature changes in the left lower extremity distal to the fracture site. No history of venous thromboembolism. Except as documented, all other systems were reviewed and are negative. [facility] Past Medical History Medical History (Updated 04/17/23 @ 21:21 by Beatrice Leos PA-C) Anxiety Barretts esophagus Chronic GERD Hyperlipidemia Hypertension Inflammatory arthritis Osteoarthritis Osteoporosis Overweight (BMI 25.0-29.9) Peptic ulcer (2010) Surgical History Surgical History (Updated 04/17/23 @ 21:17 by Beatrice Leos PA-C) History of bilateral cataract extraction History of bunionectomy of left great toe (~04/2021) History of bunionectomy of right great toe (~12/2019) History of medial meniscus repair of right knee (~2017) History of reverse total replacement of left shoulder joint (~01/20/23) Family History Family History Mother Cancer of lymph nodes, secondary Father Cancer Sibling Tongue cancer Other Hypertension Social History Social History (Updated 04/17/23 @ 21:18 by Beatrice Leos PA-C) Social History: Surrogate medical decision maker: Jeri Ge, daughter. Code status: Full code. Smoking status: Never smoker Second hand tobacco smoke exposure: No Alcohol intake: current Drinks per week: 0 Alcohol use details: 1 DRINK/YEAR Substance use: never Substance use type: does not use Lack of Transportation: No Lack of Food: Never True Current Housing: I Have Housing Concerned About Future Housing: No Difficulty Paying Gas/Electric Bills: No Difficulty Paying for Meds: No Currently Unemployed: No Education: High School Diploma/GED Difficulty w/ Childcare or Family Care: No Living arrangements: with family Additional living arrangements comments: Lives with daughters, grandson, and significant other. Additional occupation/education comments: Retired. Spiritual care concerns: No Meds Home Medications and Allergies Home Medications Medication Instructions Recorded Confirmed Type amlodipine 10 mg tablet 10 mg PO DAILY 05/08/20 04/17/23 History biotin 5 mg tablet 10 mg PO DAILY 05/08/20 04/17/23 History escitalopram oxalate 20 mg tablet 20 mg PO DAILY 05/08/20 04/17/23 History hydrochlorothiazide 12.5 mg capsul
--- NOTE | 2023-04-17 20:46 | PM.CNOR ---
Assessment and Plan Assessment and plan (1) Fracture of femoral neck, left: Code(s): S72.002A - Fracture of unspecified part of neck of left femur, initial encounter for closed fracture Status: Acute Plan Admitted with Femoral Neck Fracture Left. Unable to bear weight.. Was ambulatory before she fell. Pain with any motion of her hip. Recommend pinning if the fracture has not moved. If it displaces will need bipolar. Discussed in detail, risks, benefits, limitations and alternative. History of Present Illness HPI Consult date: 04/17/23 Chief complaint: LEFT HIP FX Narrative: 72yo female S/P fall with Left Hip Fx. Patient c/o pain and inability to walk. admitted with Left Femoral neck FX. 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 Anxiety Barretts esophagus Chronic GERD Clawtoe, acquired COPD (chronic obstructive pulmonary disease) Encounter for Postoperative Care Hallux valgus (acquired), right foot HTN (hypertension) Inflammatory arthritis Metatarsalgia of both feet Osteoarthritis Osteoporosis Overweight (BMI 25.0-29.9) PUD (peptic ulcer disease) Surgical History Surgical History History of bunionectomy of left great toe (~04/2021) History of bunionectomy of right great toe (~12/2019) History of medial meniscus repair of right knee (~2018) History of reverse total replacement of left shoulder joint (~01/20/23) Family History Family History Mother Cancer of lymph nodes, secondary Father Cancer Sibling Tongue cancer Other Hypertension Social History Social History Smoking status: Never smoker Second hand tobacco smoke exposure: No Alcohol intake: current Drinks per week: 0 Alcohol use details: 1 DRINK/YEAR Substance use: never Substance use type: does not use Lack of Transportation: No Lack of Food: Never True Current Housing: I Have Housing Concerned About Future Housing: No Difficulty Paying Gas/Electric Bills: No Difficulty Paying for Meds: No Currently Unemployed: No Education: High School Diploma/GED Difficulty w/ Childcare or Family Care: No Living arrangements: with family Additional living arrangements comments: PT LIVES WITH 2 DAUGHTERS (SALVADOR & LELO) ALONG WITH SIGNIFICANT OTHER RICKI OHARA Spiritual care concerns: No Meds Home Medications and Allergies Home Medications Medication Instructions Recorded Confirmed Type amlodipine 10 mg tablet 10 mg PO DAILY 05/08/20 03/11/23 History biotin 5 mg tablet 10 mg PO DAILY 05/08/20 03/11/23 History escitalopram oxalate 20 mg tablet 20 mg PO DAILY 05/08/20 03/11/23 History hydrochlorothiazide 12.5 mg capsule 12.5 mg PO DAILY 05/08/20 03/11/23 History losartan 100 mg tablet 100 mg PO HS 05/08/20 03/11/23 History inghdipb-rlhi-aqai 8 mg-folic 400 1 tablet PO DAILY 05/08/20 03/11/23 History mcg-K 50 mcg-lutein 300 mcg tablet (Centrum Silver Women) omega 8-yke-huu-fish oil 1,200 mg 1 cap PO BID 05/08/20 03/11/23 History (144 mg-216 mg) capsule (Fish Oil) omeprazole 20 mg capsule,delayed 20 mg PO BID 05/08/20 03/11/23 History release trazodone 100 mg tablet 100 mg PO HS 05/08/20 03/11/23 History vitamin B complex 1 cap PO DAILY 05/08/20 03/11/23 History hydrocodone 10 mg-acetaminophen 1 tablet PO HS PRN Pain #30 tabs 04/11/21 03/11/23 Rx 325 mg tablet cyclosporine 0.05 % eye drops in a 1 drp EACH EYE BID 10/22/21 03/11/23 History dropperette (Restasis) rosuvastatin 5 mg tablet 5 mg PO DAILY 10/15/22 03/11/23 History celecoxib 200 mg capsule 200 mg PO DAILY #90 caps 11/28/22 03/11/23 Rx Allergies Allergy/AdvReac Type Severity Reaction Status Date / Time No Known Allergies Aller
--- NOTE | 2023-04-17 20:51 | ADMGEN ---
This patient, Nissa Thao, was admitted to 2 Medical Room 260-. Patient/family oriented to hospital policies and general routines including ID bracelet, bed and alarms, visiting hours, pain management, procedures, bathroom and other care routines, personal items, smoking policy, room service/diet, and visiting hours. Information on how to activate the Rapid Response Team has been discussed. Patient/Family are encouraged to report perceived risks to care and to ask questions if they do not understand what they are told or what they should do.
[2023-04-17] MEDS: MORPHINE SULFATE (*CRX) 2 MG/ML INJ IV PUSH (21:20)
[2023-04-18] VITALS (18 sets, daily range): BP systolic 128–156; BP diastolic 65–81; PULSE 82–100; RESP 11–20; TEMP 36.6–37; O2SAT 90–98
[2023-04-18] MEDS: HYDROmorphone HCL INJ (*CRX) 1 MG/ML SYR 0.5 MG IV PUSH ×2 (01:31→05:34)
[2023-04-18 05:14] LABS: Hematocrit 37.2 % (37.0-47.0); Hemoglobin 12.1 g/dL (12.0-15.0); Mean Corpuscular HGB Conc 32.5 g/dl (32-36); Mean Corpuscular Hemoglobin 29.1 pg (26-34); Mean Corpuscular Volume 89.4 fl (80-100); Mean Platelet Volume 9.8 fl (7.4-10.4); Platelet Count Result 188 k/mm3 (150-375); Red Blood Count 4.16 M/mm3 (4.2-5.4); Red Cell Distribution Width 12.5 % (11.5-14.5); White Blood Count 10.8 K/mm3 (4.5-10.0)
[2023-04-18 05:25] LABS: Anion Gap 7 mmol/L (8-16); Blood Urea Nitrogen 15 mg/dL (7-17); Calcium 9.3 mg/dL (8.4-10.2); Carbon Dioxide 31 mmol/L (22-30); Chloride 101 mmol/L (98-107); Estimated CRCL calculation 49 ml/min; Estimated Glomerular Filt Rate 54; Glucose 122 mg/dL (65-110); Potassium 4.3 mmol/L (3.4-5.0); Sodium 139 mmol/L (137-145)
--- NOTE | 2023-04-18 07:19 | WPDHPUPDATE1 ---
History and Physical Update Update Date/Time: 04/18/23 07:19 History and Physical has been reviewed, including an updated exam of the patient. There are NO changes in the patient's condition. Risks, benefits, and alternatives have been discussed and questions answered. Patient agrees to proceed with procedure.
--- NOTE | 2023-04-18 07:33 | WPDANESEPPF ---
Anes - Initial Pre Proc Eval Procedure: Operation Date: 04/18/23 07:30 Proposed Procedures p Hip Pinning Cannulated Screws(Left) - James iLon MD Date/Time: 04/18/23 07:33 Surgeon: Nat Chavez MD Pre Op Diagnosis: LEFT HIP FX Patient Data Age: 72 Gender: F Height: 1.7 m Weight: 86.3 kg Last Vital Signs Temp 37.0 C 04/18/23 06:20 Pulse 86 04/18/23 06:20 Resp 16 04/18/23 06:20 BP 144/71 H 04/18/23 06:20 Pulse Ox 91 04/18/23 06:20 O2 Del Method Nasal Cannula 04/17/23 21:25 O2 Flow Rate 1 04/17/23 21:25 Allergies Allergy/AdvReac Type Severity Reaction Status Date / Time No Known Allergies Allergy Verified 02/11/23 13:15 Home Medications Medication Instructions Recorded Confirmed Type amlodipine 10 mg tablet 10 mg PO DAILY 05/08/20 04/17/23 History biotin 5 mg tablet 10 mg PO DAILY 05/08/20 04/17/23 History escitalopram oxalate 20 mg tablet 20 mg PO DAILY 05/08/20 04/17/23 History hydrochlorothiazide 12.5 mg capsule 12.5 mg PO DAILY 05/08/20 04/17/23 History losartan 100 mg tablet 100 mg PO HS 05/08/20 04/17/23 History naidcrnp-jgbx-yikr 8 mg-folic 400 1 tablet PO DAILY 05/08/20 04/17/23 History mcg-K 50 mcg-lutein 300 mcg tablet (Centrum Silver Women) omega 0-ucu-fny-fish oil 1,200 mg 1 cap PO BID 05/08/20 04/17/23 History (144 mg-216 mg) capsule (Fish Oil) omeprazole 20 mg capsule,delayed 20 mg PO BID 05/08/20 04/17/23 History release trazodone 100 mg tablet 100 mg PO HS 05/08/20 04/17/23 History vitamin B complex 1 cap PO DAILY 05/08/20 04/17/23 History hydrocodone 10 mg-acetaminophen 1 tablet PO HS PRN Pain #30 tabs 04/11/21 04/17/23 Rx 325 mg tablet cyclosporine 0.05 % eye drops in a 1 drp EACH EYE BID 10/22/21 04/17/23 History dropperette (Restasis) rosuvastatin 5 mg tablet 5 mg PO DAILY 10/15/22 04/17/23 History celecoxib 200 mg capsule 200 mg PO DAILY #90 caps 11/28/22 04/17/23 Rx Laboratory Tests 04/17/23 04/18/23 16:58 05:06 WBC 13.1 H K/mm3 10.8 H K/mm3 (4.5-10.0) (4.5-10.0) RBC 4.34 M/mm3 4.16 L M/mm3 (4.2-5.4) (4.2-5.4) Hgb 12.7 g/dL 12.1 g/dL (12.0-15.0) (12.0-15.0) Hct 37.9 % 37.2 % (37.0-47.0) (37.0-47.0) MCV 87.3 fl 89.4 fl (80-100) (80-100) MCH 29.3 pg 29.1 pg (26-34) (26-34) MCHC 33.5 g/dl 32.5 g/dl (32-36) (32-36) RDW 12.5 % 12.5 % (11.5-14.5) (11.5-14.5) Plt Count 194 k/mm3 188 k/mm3 (150-375) (150-375) MPV 9.7 fl 9.8 fl (7.4-10.4) (7.4-10.4) Immature Gran % (Auto) 0.5 % (0-0.5) Neut % (Auto) 81.8 H % (45.5-73.1) Lymph % (Auto) 10.8 L % (18.3-44.2) Burnett % (Auto) 5.8 % (2.6-8.5) Eos % (Auto) 0.7 % (0-4.4) Baso % (Auto) 0.4 % (0.2-1.2) Lymph # (Auto) 1.41 K/mm3 (0.9-3.2) Burnett # (Auto) 0.8 H K/mm3 (0.1-0.6) Eos # (Auto) 0.1 K/mm3 (0-0.3) Baso # (Auto) 0.1 K/mm3 (0.0-0.1) Abs Immat Gran (auto) 0.06 H K/mm3 (0.00-0.031) Absolute Neuts (auto) 10.7 H K/mm3 (1.3-6.7) Absolute Nucleated RBC 0.0 K/mm3 (0.0-0.012) Nucleated RBC % 0.0 % (0.0-0.2) PT 13.5 Seconds (11.1-14.7) INR 1.0 APTT 27.8 SECONDS (22.3-36.8) Sodium 140 mmol/L 139 mmol/L (137-145) (137-145) Potassium 3.6 mmol/L 4.3 mmol/L (3.4-5.0) (3.4-5.0) Chloride 100 mmol/L 101 mmol/L (98-107) (98-107) Carbon Dioxide 26 mmol/L 31 H mmol/L (22-30) (22-30) Anion Gap 14 mmol/L 7 L mmol/L (8-16) (8-16) BUN 15 D mg/dL 15 mg/dL (7-17) (7-17) Creatinine 1.00 mg/dL 1.00 mg/dL (0.7-1.0) (0.7-1.0) Estim Creat Clear Calc 55 ml/min 49 ml/min Estimated GFR 54 L 54 L (59 - ) (59 - ) Glucose 101 mg/dL 122 H mg/dL (65-110) (65-110) Calcium 9.9 mg/dL 9.3 mg/dL (8.4-10.2) (8.4-10.2) Magnesium 2.0 mg/dL (1.6-2.3) Patient hx anesthesia problems: none
[2023-04-18] MEDS: ceFAZolin SODIUM 1 GM VIAL 2 GM IV PUSH (07:35)
--- NOTE | 2023-04-18 08:10 | PCPTNOTE ---
received PT eval orders. Pt is having surgery today. HOLD PT until post op orders received.
--- NOTE | 2023-04-18 08:33 | P.OP_ITS ---
Procedure Note - Detailed Date of Procedure 04/18/23 Pre-op Diagnosis LEFT HIP FX Post-op Diagnosis Same Procedure Performed Pinning Left Hip Surgeon James Lion MD Architectural Inspector Margaret Conde Anesthesia General Description of Procedure Patient brought to operating room 7. A general anesthetic was administered. She was placed on the operating table and sterilely prepped and draped in usual manner on the fracture table. A longitudinal incision made laterally. Dissection carried down to the through the fascia. The femoral shaft was found and a guide pin placed 2 pins placed around this with good position in the head. Then 80, 85 and 85 millimeter screws placed. This gave excellent fixation of fracture, overall alignment was good. The wounds then irrigated. Hemostasis obtained and closed with 2.0 Vicryl and yolette. A sterile dressing was applied. The patient tolerated procedure well. Implants Synthesis cannulated screws 80,85,85 Estimated Blood Loss 100 Complications No immediate complications Condition Stable Disposition PACU [facility] Billing Surgery - Charge Forward: Surgery Billing (Femoral Neck Fracture with pinning CPT 71390)
[2023-04-18] MEDS: LACTATED RINGERS 1,000 ML 30 ML IV CONT (08:54)
--- NOTE | 2023-04-18 09:19 | PC.NURSE ---
pt taken to surgery at 0710
--- NOTE | 2023-04-18 09:30 | PC.NURSE ---
Patient returned from surgery with new IV. 20 L AC was removed, 24 R wrist was placed in recovery
--- NOTE | 2023-04-18 11:00 | PC.NURSE ---
Addendum entered by Tania Almodovar RN 04/19/23 19:34: patient was brought back with a new IV place in PACU, 24 right wrist. Old IV was removed in PACU Original Note: Patient returned to the floor from surgery
[2023-04-18] MEDS: amLODIPine BESYLATE 5 MG TABLET 10 MG PO (12:18)
[2023-04-18] MEDS: ESCITALOPRAM OXALATE 10 MG TABLET 20 MG PO (12:19)
[2023-04-18] MEDS: SENNA/DOCUSATE SODIUM TABLET 2 TAB PO ×2 (12:19→17:02)
[2023-04-18] MEDS: PANTOPRAZOLE 40 MG TABLET PO ×2 (12:19→20:50)
[2023-04-18] MEDS: SODIUM CHLORIDE 0.9% IV 1,000 ML 125 ML IV CONT (12:19)
[2023-04-18] MEDS: polyethylene glycoL 3350 17 GM POWD.PACK PO (12:19)
[2023-04-18] MEDS: cycloSPORINE 0.4 ML OPHTH SOLUTION 1 DROP EACH EYE ×2 (12:19→17:02)
[2023-04-18] MEDS: hydroCHLOROthiazide 12.5 MG CAPSULE PO (12:19)
[2023-04-18] MEDS: ROSUVASTATIN 5 MG TABLET PO (12:19)
[2023-04-18] MEDS: CYCLOBENZAPRINE HCL 10 MG TABLET PO (12:25)
[2023-04-18] MEDS: ACETAMINOPHEN 325 MG TABLET 650 MG PO (12:25)
--- NOTE | 2023-04-18 14:13 | PM.IMCN ---
Assessment and Plan Assessment and plan (1) Transcervical fracture of left femur: Code(s): S72.032A - Displaced midcervical fracture of left femur, initial encounter for closed fracture Status: Acute Assessment and Plan: - ortho managing -surgical pinning done this am with no complications -await recommendations on DVT prophylaxis and d/c -PT to evaluate inpatient (2) Hypertension: Code(s): I10 - Essential (primary) hypertension Status: Acute Assessment and Plan: -continue home meds, stable (3) Hyperlipidemia: Code(s): E78.5 - Hyperlipidemia, unspecified Status: Acute Assessment and Plan: - continue home meds HPI Date of Consult Consult date: 04/18/23 Requesting Physician: Nat Chavez MD Primary Care Provider: Dominick Grigsby Consult Narrative Reason for consult: medical management Narrative: Nissa Thao is a 72 year old female admitted post fall in her home for left sided hip pain. PMH positive for hypertension, dyslipidemia, chronic obstructive pulmonary disease, and anxiety. She denies head trauma and loss of consciousness in the fall. She has no complaints of neck, back, chest, or abdominal pain on arrival. Hip and pelvis x-ray done in ER and showed a transcervical fracture of the left femoral neck. She was admitted for pain control, ortho consulted and surgery this morning. Surgical report reviewed, dressing intact. She had just returned to floor from PACU upon exam. She was resting comfortably, speaking in full sentences without distress or confusion. She was requiring 4L of supplemental oxygen directly after surgery. Her pain was controlled at that time. Will advance diet and resume DVT prophylaxis at ortho and surgical discretion. PT to evaluate. Will continue to monitor and plan for d/c when cleared by surgery. Review of Systems Review of Systems: All systems reviewed & are unremarkable except as noted in HPI and below PMFSH Past Medical History Medical History Anxiety Barretts esophagus Chronic GERD Hyperlipidemia Hypertension Inflammatory arthritis Osteoarthritis Osteoporosis Overweight (BMI 25.0-29.9) Peptic ulcer (2010) Surgical History Surgical History History of bilateral cataract extraction History of bunionectomy of left great toe (~04/2021) History of bunionectomy of right great toe (~12/2019) History of medial meniscus repair of right knee (~2017) History of reverse total replacement of left shoulder joint (~01/20/23) Family History Family History Mother Cancer of lymph nodes, secondary Father Cancer Sibling Tongue cancer Other Hypertension Social History Social History Social History: Surrogate medical decision maker: Jeri Ge, daughter. Code status: Full code. Smoking status: Never smoker Second hand tobacco smoke exposure: No Alcohol intake: current Drinks per week: 0 Alcohol use details: 1 DRINK/YEAR Substance use: never Substance use type: does not use Lack of Transportation: No Lack of Food: Never True Current Housing: I Have Housing Concerned About Future Housing: No Difficulty Paying Gas/Electric Bills: No Difficulty Paying for Meds: No Currently Unemployed: No Education: High School Diploma/GED Difficulty w/ Childcare or Family Care: No Living arrangements: with family Additional living arrangements comments: Lives with daughters, grandson, and significant other. Additional occupation/education comments: Retired. Spiritual care concerns: No Meds Home Medications and Allergies Home Medications Medication Instructions Recorded Confirmed Type amlodipine 10 mg tablet 10 mg PO DAILY 05/08/20 04/17/23 History biotin 5 mg
[2023-04-18] MEDS: ceFAZolin 1 GM/NS 50 ML 1 GM/50 ML BAG IVPB ×2 (17:02→23:52)
[2023-04-18] MEDS: HYDROcodone/acetaminophen (*CRX) 7.5-325 MG TABLET 1 TAB PO (17:22)
[2023-04-18] MEDS: LOSARTAN POTASSIUM 100 MG TABLET PO (20:50)
[2023-04-18] MEDS: RIVAROXABAN 10 MG TABLET PO (20:50)
[2023-04-18] MEDS: traZODone HCL 50 MG TABLET 100 MG PO (23:51)
[2023-04-19] VITALS (9 sets, daily range): BP systolic 112–144; BP diastolic 57–68; PULSE 65–94; RESP 16–18; TEMP 36.4–36.8; O2SAT 91–98
[2023-04-19 06:00] LABS: Basophils Percent Auto 0.2 % (0.2-1.2); Eosinophils Percent Auto 0.2 % (0-4.4); Hematocrit 33.5 % (37.0-47.0); Hemoglobin 11.2 g/dL (12.0-15.0); Immature Granulocyte Absolute 0.08 K/mm3 (0.00-0.031); Immature Granulocyte Percent A 0.7 % (0-0.5); Lymphocytes Absolute Auto 0.93 K/mm3 (0.9-3.2); Lymphocytes Percent Auto 8.3 % (18.3-44.2); Mean Corpuscular HGB Conc 33.4 g/dl (32-36); Mean Corpuscular Hemoglobin 29.4 pg (26-34); Mean Corpuscular Volume 87.9 fl (80-100); Mean Platelet Volume 10.1 fl (7.4-10.4); Monocytes Absolute Auto 0.8 K/mm3 (0.1-0.6); Monocytes Percent Auto 7.5 % (2.6-8.5); Neutrophils Absolute Auto 9.3 K/mm3 (1.3-6.7); Neutrophils Percent Auto 83.1 % (45.5-73.1); Platelet Count Result 167 k/mm3 (150-375); Red Blood Count 3.81 M/mm3 (4.2-5.4); Red Cell Distribution Width 12.3 % (11.5-14.5); White Blood Count 11.2 K/mm3 (4.5-10.0)
[2023-04-19 06:10] LABS: Anion Gap 10 mmol/L (8-16); Blood Urea Nitrogen 12 mg/dL (7-17); Calcium 9.2 mg/dL (8.4-10.2); Carbon Dioxide 30 mmol/L (22-30); Chloride 99 mmol/L (98-107); Estimated CRCL calculation 61 ml/min; Estimated Glomerular Filt Rate > 60; Glucose 121 mg/dL (65-110); Potassium 3.9 mmol/L (3.4-5.0); Sodium 139 mmol/L (137-145)
[2023-04-19] MEDS: HYDROcodone/acetaminophen (*CRX) 7.5-325 MG TABLET 1 TAB PO ×2 (06:13→12:52)
--- NOTE | 2023-04-19 07:08 | PM.PNORT ---
Progress Note: A&P Assessment and Plan (1) Transcervical fracture of left femur: Code(s): S72.032A - Displaced midcervical fracture of left femur, initial encounter for closed fracture Status: Acute Assessment and Plan: Patient is status post pinning left hip. Overall she is progressing reasonably well. We will get her up and ambulated today. She is having some pain issues however this is been difficult to keep her comfortable because her oxygen saturation is low occasionally. I told her that the pin seems stable if it heals in this position were done if it fails she will need a bipolar discussed. Subjective Subjective Date/Time Seen: 04/19/23 07:08 Principal diagnosis: Femoral Neck Fracture LEFT Interval history: Patient is status post pinning left hip fracture. She has some complaints of pain however C difficult to give her medicine because her oxygen sats are a bit low. Exam Narrative: On exam she can wiggle her toes she can move her leg a little bit better than yesterday. She does have pain with motion neurologically she appears to be grossly intact. Objective Data Vital Signs Vital Signs: Vital Signs - 24 hr 04/18/23 08:54 04/18/23 09:00 04/18/23 09:15 Temperature Pulse Rate 85 100 99 Respiratory Rate 11 L 16 19 Blood Pressure 143/77 H 156/80 H 133/72 Pulse Oximetry 98 96 94 Oxygen Delivery Simple Face Mask Simple Face Mask Nasal Cannula Oxygen Flow Rate 6 6 3 04/18/23 09:30 04/18/23 09:45 04/18/23 10:00 Temperature Pulse Rate 95 89 90 Respiratory Rate 20 16 15 Blood Pressure 155/76 H 145/81 H 144/71 H Pulse Oximetry 95 95 92 Oxygen Delivery Nasal Cannula Nasal Cannula Nasal Cannula Oxygen Flow Rate 4 4 4 04/18/23 10:48 04/18/23 11:03 04/18/23 11:33 Temperature 98.2 F 98.0 F 98.0 F Pulse Rate 88 87 83 Respiratory Rate 16 16 16 Blood Pressure 150/74 H 141/76 H 133/69 Pulse Oximetry 90 92 92 Oxygen Delivery Oxygen Flow Rate 04/18/23 12:33 04/18/23 14:50 04/18/23 16:33 Temperature 97.8 F 98.4 F Pulse Rate 82 89 Respiratory Rate 16 16 Blood Pressure 136/65 145/75 H Pulse Oximetry 93 93 Oxygen Delivery Nasal Cannula Oxygen Flow Rate 4 04/18/23 17:15 04/18/23 17:50 04/18/23 18:30 Temperature Pulse Rate Respiratory Rate Blood Pressure Pulse Oximetry 92 93 94 Oxygen Delivery Oxygen Flow Rate 04/18/23 19:22 04/18/23 20:00 04/19/23 00:05 Temperature 98.1 F 97.8 F Pulse Rate 88 91 Respiratory Rate 16 18 Blood Pressure 128/68 142/57 H Pulse Oximetry 93 93 91 Oxygen Delivery Nasal Cannula Oxygen Flow Rate 4 04/19/23 03:59 Temperature 98.2 F Pulse Rate 85 Respiratory Rate 16 Blood Pressure 144/68 H Pulse Oximetry 91 Oxygen Delivery Oxygen Flow Rate Intake/Output Intake/Output: Intake & Output 04/16/23 04/17/23 04/18/23 04/19/23 23:59 23:59 23:59 23:59 Intake Total 1860 100 Output Total 700 1100 Balance 1160 -1000 Meds/Results Medications: Active Medications Generic Name Dose Route Start Last Admin Trade Name Freq PRN Reason Stop Dose Admin Acetaminophen 650 mg 04/17/23 21:10 04/18/23 12:25 Acetaminophen 325 Mg Tablet PO 650 mg Q6H PRN Administration Mild Pain (1-3) or Fever Hydrocodone Bitart/Acetaminophen 1 tab 04/18/23 10:48 04/19/23 06:13 Hydrocodone/Acetaminophen (*Crx) 7.5-325 Mg Tablet PO 1 tab Q3H PRN Administration Pain Rated 4-6 Amlodipine Besylate 10 mg 04/18/23 09:00 04/18/23 12:18 Amlodipine Besylate 5 Mg Tablet PO 10 mg DAILY [facility] Administration Celecoxib 200 mg 04/19/23 08:00 Celecoxib 200 Mg Capsule PO DAILY@0800 [facility] Cyclobenzaprine HCl 10 mg 04/18/23 10:48 04/18/23 12:25 Cyclobenzaprine Hcl 10 Mg Tablet PO 10 mg Q8H PRN Administration Muscle Spasm Cyclosporine 1 drop 04/18/23 09:00 04/18/23 17:02 Cyclosporine 0.4 Ml Ophth Solution EACH EYE 1 drop BID MAUREEN Administration
[2023-04-19] MEDS: hydroCHLOROthiazide 12.5 MG CAPSULE PO (08:45)
[2023-04-19] MEDS: ceFAZolin 1 GM/NS 50 ML 1 GM/50 ML BAG IVPB (08:45)
[2023-04-19] MEDS: ESCITALOPRAM OXALATE 10 MG TABLET 20 MG PO (08:45)
[2023-04-19] MEDS: PANTOPRAZOLE 40 MG TABLET PO ×2 (08:45→20:15)
[2023-04-19] MEDS: cycloSPORINE 0.4 ML OPHTH SOLUTION 1 DROP EACH EYE ×2 (08:45→17:34)
[2023-04-19] MEDS: CELECOXIB 200 MG CAPSULE PO (08:45)
[2023-04-19] MEDS: ROSUVASTATIN 5 MG TABLET PO (08:45)
[2023-04-19] MEDS: amLODIPine BESYLATE 5 MG TABLET 10 MG PO (08:45)
[2023-04-19] MEDS: SENNA/DOCUSATE SODIUM TABLET 2 TAB PO ×2 (08:45→17:34)
--- NOTE | 2023-04-19 13:57 | WPDANESPN ---
Anes - Prog Note Post-Op Date/Time: 04/19/23 13:57 Cardiovascular status: normal Respiratory status: normal Airway patency: baseline Mental status: baseline Post-Op hydration status: normal Vital Signs: Last Vital Signs Temp 36.8 C 04/19/23 03:59 Pulse 78 04/19/23 08:41 Resp 16 04/19/23 08:41 BP 139/63 04/19/23 08:41 Pulse Ox 98 04/19/23 12:51 O2 Del Method Nasal Cannula 04/18/23 20:00 O2 Flow Rate 4 04/18/23 20:00 Pain Score (VAS): 08/15 I/O: Intake & Output 04/18/23 04/19/23 04/19/23 23:59 07:59 15:59 Intake Total 1540 150 480 Output Total 300 1100 Balance 1240 -950 480 Laboratory Tests 04/19/23 05:42 04/19/23 05:42 04/19/23 05:42 WBC 11.2 H RBC 3.81 L Hgb 11.2 L Hct 33.5 L MCV 87.9 MCH 29.4 MCHC 33.4 RDW 12.3 Plt Count 167 MPV 10.1 Immature Gran % (Auto) 0.7 H Neut % (Auto) 83.1 H Lymph % (Auto) 8.3 L [place] % (Auto) 7.5 Eos % (Auto) 0.2 Baso % (Auto) 0.2 Lymph # (Auto) 0.93 [place] # (Auto) 0.8 H Eos # (Auto) 0.0 Baso # (Auto) 0.0 Abs Immat Gran (auto) 0.08 H Absolute Neuts (auto) 9.3 H Absolute Nucleated RBC 0.0 Nucleated RBC % 0.0 Sodium 139 Potassium 3.9 Chloride 99 Carbon Dioxide 30 Anion Gap 10 BUN 12 Creatinine 0.80 Estim Creat Clear Calc 61 Estimated GFR > 60 Glucose 121 H Calcium 9.2 Post-procedural complaints: none Patient Feedback: Patient satisfied with anesthetic care.
--- NOTE | 2023-04-19 14:01 | PM.IMPN ---
Progress Note: A&P Assessment and Plan (1) Transcervical fracture of left femur: Code(s): S72.032A - Displaced midcervical fracture of left femur, initial encounter for closed fracture Status: Acute Assessment and Plan: -ortho managing -surgical pinning done with no complications -await recommendations on DVT prophylaxis and d/c -PT to evaluate inpatient (2) Hypertension: Code(s): I10 - Essential (primary) hypertension Status: Acute Assessment and Plan: -continue home meds, stable (3) Hyperlipidemia: Code(s): E78.5 - Hyperlipidemia, unspecified Status: Acute Assessment and Plan: - continue home meds Subjective Date/time seen: 04/19/23 14:01 Interval history: Patient is a 72 year old female admitted post fall in her home for left sided hip pain. PMH positive for hypertension, dyslipidemia, chronic obstructive pulmonary disease, and anxiety. She denies head trauma and loss of consciousness in the fall. She has no complaints of neck, back, chest, or abdominal pain on arrival. Hip and pelvis x-ray done in ER and showed a transcervical fracture of the left femoral neck. She was admitted for pain control, ortho consulted and surgery this morning. Surgical report reviewed, dressing intact. She is morning comfortable this morning, although still requiring O2 at 4L. She was resting comfortably, speaking in full sentences without distress or confusion. Her pain was controlled at that time. Will advance diet and resume DVT prophylaxis at ortho and surgical discretion. PT to evaluate. Will continue to monitor and plan for d/c when cleared by surgery. Review of Systems Review of Systems: Twelve systems were reviewed. No recent cold or flu symptoms. No syncope or near syncope. She denies exertional chest pain, shortness a breath, orthopnea, and paroxysmal nocturnal dyspnea. No known history of cardiac disease or dysrhythmia. Appetite has been good. No nausea, vomiting, diarrhea, or dysuria. She denies paresthesias, skin color, and temperature changes in the left lower extremity distal to the fracture site. No history of venous thromboembolism. Except as documented, all other systems were reviewed and are negative. All systems reviewed & are unremarkable except as noted in HPI and below Exam Narrative: General: A well-developed, nontoxic-appearing female lying in bed in no acute distress. HEENT: Normocephalic, atraumatic. PERRL, EOMI. Oral mucosa moist. Neck: Supple. Respiratory: Lungs are clear to auscultation bilaterally. Cardiovascular: RRR with S1-S2. Gastrointestinal: Abdomen is soft, obese, nontender, and nondistended with positive bowel sounds. Skin: Warm and dry. Bruise on the dorsum of the right hand. Extremities: Radial and pedal pulses intact. Arthritic changes of the fingers. Neurovascularly intact distal to the fracture site. Neurological: Alert and oriented x3. No gross focal deficits to casual conversation. Psychiatric: Pleasant and cooperative with normal mood and affect. Judgment and insight intact. Objective Data Vital Signs Vital Signs: Vital Signs - 24 hr 04/18/23 14:50 04/18/23 16:33 04/18/23 17:15 Temperature 98.4 F Pulse Rate 89 Respiratory Rate 16 Blood Pressure 145/75 H Pulse Oximetry 93 92 Oxygen Delivery Nasal Cannula Oxygen Flow Rate 4 04/18/23 17:50 04/18/23 18:30 04/18/23 19:22 Temperature 98.1 F Pulse Rate 88 Respiratory Rate 16 Blood Pressure 128/68 Pulse Oximetry 93 94 93 Oxygen Delivery Oxygen Flow Rate 04/18/23 20:00 04/19/23 00:05 04/19/23 03:59 Temperature 97.8 F 98.2 F Pulse Rate 91 85 Respiratory Rate 18 16 Blood Pressure 142/57 H 144/68 H Pulse Oximetry 93 91 91 Oxygen Delivery Nasal Cannula Oxygen Flow Rate 4 04/19/23 08:41 04/19/23 12:51 Temperature Pulse Rate 78 Respiratory Rate 16 Blood Pressure 139/63 Pulse Oximetry 94 98 Oxygen Delivery
[2023-04-19] MEDS: CYCLOBENZAPRINE HCL 10 MG TABLET PO (17:34)
[2023-04-19] MEDS: RIVAROXABAN 10 MG TABLET PO (17:36)
[2023-04-19] MEDS: LOSARTAN POTASSIUM 100 MG TABLET PO (20:15)
[2023-04-19] MEDS: traZODone HCL 50 MG TABLET 100 MG PO (20:15)
[2023-04-20 05:50] LABS: Basophils Percent Auto 0.3 % (0.2-1.2); Eosinophils Absolute Auto 0.5 K/mm3 (0-0.3); Eosinophils Percent Auto 4.7 % (0-4.4); Hematocrit 32.5 % (37.0-47.0); Hemoglobin 10.7 g/dL (12.0-15.0); Immature Granulocyte Absolute 0.04 K/mm3 (0.00-0.031); Immature Granulocyte Percent A 0.4 % (0-0.5); Lymphocytes Absolute Auto 2.17 K/mm3 (0.9-3.2); Lymphocytes Percent Auto 21.4 % (18.3-44.2); Mean Corpuscular HGB Conc 32.9 g/dl (32-36); Mean Corpuscular Hemoglobin 29.3 pg (26-34); Mean Platelet Volume 10.2 fl (7.4-10.4); Monocytes Absolute Auto 0.8 K/mm3 (0.1-0.6); Monocytes Percent Auto 7.9 % (2.6-8.5); Neutrophils Absolute Auto 6.6 K/mm3 (1.3-6.7); Neutrophils Percent Auto 65.3 % (45.5-73.1); Platelet Count Result 170 k/mm3 (150-375); Red Blood Count 3.65 M/mm3 (4.2-5.4); Red Cell Distribution Width 12.5 % (11.5-14.5); White Blood Count 10.1 K/mm3 (4.5-10.0)
[2023-04-20 05:57] LABS: Anion Gap 9 mmol/L (8-16); Blood Urea Nitrogen 13 mg/dL (7-17); Calcium 8.9 mg/dL (8.4-10.2); Carbon Dioxide 31 mmol/L (22-30); Chloride 99 mmol/L (98-107); Estimated CRCL calculation 61 ml/min; Estimated Glomerular Filt Rate > 60; Glucose 95 mg/dL (65-110); Potassium 3.6 mmol/L (3.4-5.0); Sodium 139 mmol/L (137-145)
[2023-04-20 06:42] VITALS: BP 146/77; PULSE 99; RESP 16; TEMP 36.4; O2SAT 94
--- NOTE | 2023-04-20 07:59 | PCOTNOTE ---
The patient treatment was not able to be completed patient preferred after breakfast. Will plan to continue treatment per plan of care.
[2023-04-20] MEDS: ESCITALOPRAM OXALATE 10 MG TABLET 20 MG PO (08:23)
[2023-04-20] MEDS: SENNA/DOCUSATE SODIUM TABLET 2 TAB PO (08:23)
[2023-04-20] MEDS: PANTOPRAZOLE 40 MG TABLET PO ×2 (08:23→20:13)
[2023-04-20] MEDS: CELECOXIB 200 MG CAPSULE PO (08:23)
[2023-04-20] MEDS: ROSUVASTATIN 5 MG TABLET PO (08:23)
[2023-04-20] MEDS: amLODIPine BESYLATE 5 MG TABLET 10 MG PO (08:23)
[2023-04-20] MEDS: hydroCHLOROthiazide 12.5 MG CAPSULE PO (08:23)
[2023-04-20] MEDS: cycloSPORINE 0.4 ML OPHTH SOLUTION 1 DROP EACH EYE ×2 (08:28→17:45)
[2023-04-20 08:30] VITALS: O2SAT 96
--- NOTE | 2023-04-20 09:05 | PM.PNORT ---
Progress Note: A&P Assessment and Plan (1) Femoral neck fracture: Code(s): S72.009A - Fracture of unspecified part of neck of unspecified femur, initial encounter for closed fracture Status: Acute Assessment and Plan: Patient is status post femoral neck fracture. Progressing slowly. Should she will need a rehab I believe to help her get around. Subjective Subjective Date/Time Seen: 04/20/23 09:05 Principal diagnosis: lEFT fEMORAL nECK fRACTURE Interval history: PATIENT IS 2 DAYS STATUS POST PINNING LEFT HIP FOR FEMORAL NECK FRACTURE. Review of Systems Musculoskeletal: Musculoskeletal: Reports arthralgias and Reports joint swelling Exam Narrative: Pain persist with motion and activity. Incisions clean. Objective Data Vital Signs Vital Signs: Vital Signs - 24 hr 04/19/23 12:51 04/19/23 15:00 04/19/23 18:00 Temperature 97.6 F Pulse Rate 94 Respiratory Rate 16 Blood Pressure 112/64 Pulse Oximetry 98 94 94 Oxygen Delivery Nasal Cannula Oxygen Flow Rate 2 04/19/23 18:20 04/19/23 19:48 04/20/23 06:42 Temperature 97.6 F 97.6 F Pulse Rate 65 99 Respiratory Rate 16 16 Blood Pressure 118/58 L 146/77 H Pulse Oximetry 93 93 94 Oxygen Delivery Nasal Cannula Oxygen Flow Rate 2 Intake/Output Intake/Output: Intake & Output 04/17/23 04/18/23 04/19/23 04/20/23 23:59 23:59 23:59 23:59 Intake Total 1860 870 350 Output Total 700 1100 Balance 1160 -230 350 Meds/Results Medications: Active Medications Generic Name Dose Route Start Last Admin Trade Name Freq PRN Reason Stop Dose Admin Acetaminophen 650 mg 04/17/23 21:10 04/18/23 12:25 Acetaminophen 325 Mg Tablet PO 650 mg Q6H PRN Administration Mild Pain (1-3) or Fever Hydrocodone Bitart/Acetaminophen 1 tab 04/18/23 10:48 04/19/23 12:52 Hydrocodone/Acetaminophen (*Crx) 7.5-325 Mg Tablet PO 1 tab Q3H PRN Administration Pain Rated 4-6 Amlodipine Besylate 10 mg 04/18/23 09:00 04/20/23 08:23 Amlodipine Besylate 5 Mg Tablet PO 10 mg DAILY [facility]UREEN Administration Celecoxib 200 mg 04/19/23 08:00 04/20/23 08:23 Celecoxib 200 Mg Capsule PO 200 mg DAILY@0800 [facility] Administration Cyclobenzaprine HCl 10 mg 04/18/23 10:48 04/19/23 17:34 Cyclobenzaprine Hcl 10 Mg Tablet PO 10 mg Q8H PRN Administration Muscle Spasm Cyclosporine 1 drop 04/18/23 09:00 04/20/23 08:28 Cyclosporine 0.4 Ml Ophth Solution EACH EYE 1 drop BID [facility] Administration Escitalopram Oxalate 20 mg 04/18/23 09:00 04/20/23 08:23 Escitalopram Oxalate 10 Mg Tablet PO 20 mg DAILY [facility] Administration Fentanyl Citrate 25 mcg 04/18/23 07:34 Fentanyl Citrate Inj (*Crx) 100 Mcg/2 Ml Vial IV PUSH Q2M PRN Pain Hydrochlorothiazide 12.5 mg 04/18/23 09:00 04/20/23 08:23 Hydrochlorothiazide 12.5 Mg Capsule PO 12.5 mg DAILY [facility] Administration Losartan Potassium 100 mg 04/18/23 21:00 04/19/23 20:15 Losartan Potassium 100 Mg Tablet PO 100 mg HS [facility] Administration Morphine Sulfate 2 mg 04/18/23 10:48 Morphine Sulfate (*Crx) 2 Mg/Ml Inj IV PUSH Q3H PRN Pain Rated 7-10 Naloxone HCl 0.1 mg 04/18/23 10:48 Naloxone Hcl 0.4 Mg/Ml Vial IV PUSH Q2M PRN Opiate Reversal Ondansetron HCl 4 mg 04/18/23 07:34 Ondansetron Inj 4 Mg/2 Ml Vial IV PUSH ONCE PRN Nausea Pantoprazole Sodium 40 mg 04/18/23 09:00 04/20/23 08:23 Pantoprazole 40 Mg Tablet PO 40 mg Q12HR [facility] Administration Polyethylene Glycol 17 gm 04/18/23 10:48 04/20/23 08:30 Polyethylene Glycol 3350 17 Gm Powd.Pack PO Not Given QAM [facility] Rivaroxaban 10 mg 04/18/23 21:00 04/19/23 17:36 Rivaroxaban 10 Mg Tablet PO 05/22/23 17:01 10 mg DAILY@17 [facility] Administration Rosuvastatin Calcium 5 mg 04/18/23 09:00 04/20/23 08:23 Rosuvastatin 5 Mg Tablet PO 5 mg DAILY [facility] Administration Senna/Docusate Sodium 2 tab
--- NOTE | 2023-04-20 11:33 | PM.IMPN ---
Progress Note: A&P Assessment and Plan (1) Transcervical fracture of left femur: Code(s): S72.032A - Displaced midcervical fracture of left femur, initial encounter for closed fracture Status: Acute Assessment and Plan: -ortho managing -surgical pinning done with no complications -await recommendations on DVT prophylaxis and d/c from ortho -will benefit from placement at [facility] post surgery for continued rehab support. (2) Hypertension: Code(s): I10 - Essential (primary) hypertension Status: Acute Assessment and Plan: -continue home meds, stable (3) Hyperlipidemia: Code(s): E78.5 - Hyperlipidemia, unspecified Status: Acute Assessment and Plan: - continue home meds Subjective Date/time seen: 04/20/23 11:33 Interval history: Patient is a 72 year old female admitted post fall in her home for left sided hip pain. PMH positive for hypertension, dyslipidemia, chronic obstructive pulmonary disease, and anxiety. She denies head trauma and loss of consciousness in the fall. She has no complaints of neck, back, chest, or abdominal pain on arrival. Hip and pelvis x-ray done in ER and showed a transcervical fracture of the left femoral neck. She was admitted for pain control, ortho consulted and surgery this morning. Surgical report reviewed, dressing intact. She is sitting up in a chair eating breakfast this morning. She has been satting >92% on room air and her repeat CXR was negative for acute cardiopulm changes. Her pain was controlled at that time, and PT has been working with her. She will benefit from inpatient rehab at d/c. Tolerating regular diet and to resume DVT prophylaxis at ortho and surgical discretion. Stable for d/c when cleared by ortho. Review of Systems Review of Systems: Twelve systems were reviewed. No recent cold or flu symptoms. No syncope or near syncope. She denies exertional chest pain, shortness a breath, orthopnea, and paroxysmal nocturnal dyspnea. No known history of cardiac disease or dysrhythmia. Appetite has been good. No nausea, vomiting, diarrhea, or dysuria. She denies paresthesias, skin color, and temperature changes in the left lower extremity distal to the fracture site. No history of venous thromboembolism. Except as documented, all other systems were reviewed and are negative. All systems reviewed & are unremarkable except as noted in HPI and below Exam Narrative: General: A well-developed, nontoxic-appearing female lying in bed in no acute distress. HEENT: Normocephalic, atraumatic. PERRL, EOMI. Oral mucosa moist. Neck: Supple. Respiratory: Lungs are clear to auscultation bilaterally. Cardiovascular: RRR with S1-S2. Gastrointestinal: Abdomen is soft, obese, nontender, and nondistended with positive bowel sounds. Skin: Warm and dry. Bruise on the dorsum of the right hand. Extremities: Radial and pedal pulses intact. Arthritic changes of the fingers. Neurovascularly intact distal to the fracture site. Neurological: Alert and oriented x3. No gross focal deficits to casual conversation. Psychiatric: Pleasant and cooperative with normal mood and affect. Judgment and insight intact. Objective Data Vital Signs Vital Signs: Vital Signs - 24 hr 04/19/23 12:51 04/19/23 15:00 04/19/23 18:00 Temperature 97.6 F Pulse Rate 94 Respiratory Rate 16 Blood Pressure 112/64 Pulse Oximetry 98 94 94 Oxygen Delivery Nasal Cannula Oxygen Flow Rate 2 04/19/23 18:20 04/19/23 19:48 04/20/23 06:42 Temperature 97.6 F 97.6 F Pulse Rate 65 99 Respiratory Rate 16 16 Blood Pressure 118/58 L 146/77 H Pulse Oximetry 93 93 94 Oxygen Delivery Nasal Cannula Oxygen Flow Rate 2 04/20/23 08:30 Temperature Pulse Rate Respiratory Rate Blood Pressure Pulse Oximetry 96 Oxygen Delivery Room Air Oxygen Flow Rate Intake/Output Intake/Output: Intake & Output 04/17/23 04/18/23 04/19/23 04/20/23 23:59 23:59
[2023-04-20 14:09] VITALS: BP 117/53; PULSE 76; RESP 18; TEMP 36.8; O2SAT 96
[2023-04-20] MEDS: RIVAROXABAN 10 MG TABLET PO (17:44)
[2023-04-20 20:12] VITALS: BP 121/64; PULSE 71; RESP 20; TEMP 36.7; O2SAT 94
[2023-04-20] MEDS: CYCLOBENZAPRINE HCL 10 MG TABLET PO (20:13)
[2023-04-20] MEDS: LOSARTAN POTASSIUM 100 MG TABLET PO (20:13)
[2023-04-20] MEDS: ACETAMINOPHEN 325 MG TABLET 650 MG PO (20:13)
[2023-04-20] MEDS: traZODone HCL 50 MG TABLET 100 MG PO (20:14)
[2023-04-20 23:54] VITALS: BP 138/59; PULSE 64; RESP 20; TEMP 36.6; O2SAT 94
[2023-04-21] MEDS: HYDROcodone/acetaminophen (*CRX) 7.5-325 MG TABLET 1 TAB PO
[2023-04-21 05:07] VITALS: BP 136/73; PULSE 70; RESP 20; TEMP 36.4; O2SAT 93
[2023-04-21 08:00] VITALS: O2SAT 98
--- NOTE | 2023-04-21 10:23 | PM.PNORT ---
Progress Note: A&P Assessment and Plan (1) Femoral neck fracture: Code(s): S72.009A - Fracture of unspecified part of neck of unspecified femur, initial encounter for closed fracture Status: Acute Assessment and Plan: S/P ORIF Left Femoral Neck Fx. Progressing slowly. Home today. Touch weight bearing. F/U 10-14 days Subjective Subjective Date/Time Seen: 04/21/23 10:23 Principal diagnosis: Left Femoral Neck Fracture Interval history: Doing well S/P pinning. Pain resolving Exam Narrative: NVI Wd-A Objective Data Vital Signs Vital Signs: Vital Signs - 24 hr 04/20/23 14:09 04/20/23 20:12 04/20/23 23:54 Temperature 98.2 F 98.1 F 97.8 F Pulse Rate 76 71 64 Respiratory Rate 18 20 20 Blood Pressure 117/53 L 121/64 138/59 L Pulse Oximetry 96 94 94 04/21/23 05:07 Temperature 97.6 F Pulse Rate 70 Respiratory Rate 20 Blood Pressure 136/73 Pulse Oximetry 93 Intake/Output Intake/Output: Intake & Output 04/18/23 04/19/23 04/20/23 04/21/23 23:59 23:59 23:59 23:59 Intake Total 1860 870 950 630 Output Total 700 1100 150 Balance 1160 -230 800 630 Meds/Results Medications: Active Medications Generic Name Dose Route Start Last Admin Trade Name Freq PRN Reason Stop Dose Admin Acetaminophen 650 mg 04/17/23 21:10 04/20/23 20:13 Acetaminophen 325 Mg Tablet PO 650 mg Q6H PRN Administration Mild Pain (1-3) or Fever Hydrocodone Bitart/Acetaminophen 1 tab 04/18/23 10:48 04/21/23 00:00 Hydrocodone/Acetaminophen (*Crx) 7.5-325 Mg Tablet PO 1 tab Q3H PRN Administration Pain Rated 4-6 Amlodipine Besylate 10 mg 04/18/23 09:00 04/20/23 08:23 Amlodipine Besylate 5 Mg Tablet PO 10 mg DAILY [facility] Administration Celecoxib 200 mg 04/19/23 08:00 04/20/23 08:23 Celecoxib 200 Mg Capsule PO 200 mg DAILY@0800 [facility] Administration Cyclobenzaprine HCl 10 mg 04/18/23 10:48 04/20/23 20:13 Cyclobenzaprine Hcl 10 Mg Tablet PO 10 mg Q8H PRN Administration Muscle Spasm Cyclosporine 1 drop 04/18/23 09:00 04/20/23 17:45 Cyclosporine 0.4 Ml Ophth Solution EACH EYE 1 drop BID [facility] Administration Escitalopram Oxalate 20 mg 04/18/23 09:00 04/20/23 08:23 Escitalopram Oxalate 10 Mg Tablet PO 20 mg DAILY [facility] Administration Fentanyl Citrate 25 mcg 04/18/23 07:34 Fentanyl Citrate Inj (*Crx) 100 Mcg/2 Ml Vial IV PUSH Q2M PRN Pain Hydrochlorothiazide 12.5 mg 04/18/23 09:00 04/20/23 08:23 Hydrochlorothiazide 12.5 Mg Capsule PO 12.5 mg DAILY [facility] Administration Losartan Potassium 100 mg 04/18/23 21:00 04/20/23 20:13 Losartan Potassium 100 Mg Tablet PO 100 mg HS [facility] Administration Morphine Sulfate 2 mg 04/18/23 10:48 Morphine Sulfate (*Crx) 2 Mg/Ml Inj IV PUSH Q3H PRN Pain Rated 7-10 Naloxone HCl 0.1 mg 04/18/23 10:48 Naloxone Hcl 0.4 Mg/Ml Vial IV PUSH Q2M PRN Opiate Reversal Ondansetron HCl 4 mg 04/18/23 07:34 Ondansetron Inj 4 Mg/2 Ml Vial IV PUSH ONCE PRN Nausea Pantoprazole Sodium 40 mg 04/18/23 09:00 04/20/23 20:13 Pantoprazole 40 Mg Tablet PO 40 mg Q12HR [facility] Administration Polyethylene Glycol 17 gm 04/18/23 10:48 04/20/23 08:30 Polyethylene Glycol 3350 17 Gm Powd.Pack PO Not Given QAM [facility] Rivaroxaban 10 mg 04/18/23 21:00 04/20/23 17:44 Rivaroxaban 10 Mg Tablet PO 05/22/23 17:01 10 mg DAILY@17 [facility] Administration Rosuvastatin Calcium 5 mg 04/18/23 09:00 04/20/23 08:23 Rosuvastatin 5 Mg Tablet PO 5 mg DAILY [facility] Administration Senna/Docusate Sodium 2 tab 04/18/23 10:48 04/20/23 17:45 Senna/Docusate Sodium Tablet PO Not Given BID [facility] Trazodone HCl 100 mg 04/18/23 21:00 04/20/23 20:14 Trazodone Hcl 50 Mg Tablet PO 100 mg HS [facility] Administration Radiology Results: ITS Impressions Hand X-Ray 04/17/23 16:11 IMPRESSION: 1. 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
[2023-04-21] MEDS: ESCITALOPRAM OXALATE 10 MG TABLET 20 MG PO (10:25)
[2023-04-21] MEDS: amLODIPine BESYLATE 5 MG TABLET 10 MG PO (10:25)
[2023-04-21] MEDS: CELECOXIB 200 MG CAPSULE PO (10:25)
[2023-04-21] MEDS: PANTOPRAZOLE 40 MG TABLET PO (10:25)
[2023-04-21] MEDS: cycloSPORINE 0.4 ML OPHTH SOLUTION 1 DROP EACH EYE (10:26)
[2023-04-21] MEDS: hydroCHLOROthiazide 12.5 MG CAPSULE PO (10:26)
[2023-04-21] MEDS: ROSUVASTATIN 5 MG TABLET PO (10:26)
[2023-04-21 11:19] LABS: SARS-CoV-2 RNA PCR Negative (Negative)
[2023-04-21] MEDS: ACETAMINOPHEN 325 MG TABLET 650 MG PO (11:54)
--- NOTE | 2023-04-21 12:23 | PM.DS ---
DS: Admitting Diagnosis Discharge Date 04/21/23 Admitting Diagnosis midcervical fracture of left femur DS: Discharge Diagnosis Discharge Diagnosis (1) Transcervical fracture of left femur: Code(s): S72.032A - Displaced midcervical fracture of left femur, initial encounter for closed fracture Status: Acute Assessment and Plan: -surgical pinning done with no complications, cleared by ortho for d/c -d/c on Xarelto for DVT prophylaxis -will benefit from placement at [place] post surgery for continued rehab support. (2) Hypertension: Code(s): I10 - Essential (primary) hypertension Status: Chronic Assessment and Plan: -continue home meds, stable (3) Hyperlipidemia: Code(s): E78.5 - Hyperlipidemia, unspecified Status: Chronic Assessment and Plan: - continue home meds DS: Summary Hospital Course Hospital Course: Patient is a 72 year old female admitted post fall in her home for left sided hip pain. PMH positive for hypertension, dyslipidemia, chronic obstructive pulmonary disease, and anxiety. She denies head trauma and loss of consciousness in the fall. She has no complaints of neck, back, chest, or abdominal pain on arrival. Hip and pelvis x-ray done in ER and showed a transcervical fracture of the left femoral neck. She was admitted for pain control, ortho consulted and surgical pinning done while inpatient without issue. Surgical report reviewed, dressing intact. She is sitting up in a chair eating breakfast this morning. PT vela worked with her and her pain is improving. She has been satting >92% on room air and her repeat CXR was negative for acute cardiopulmonary changes. She will benefit from inpatient rehab at d/c. Tolerating regular diet and to resume DVT prophylaxis at discharge. Ortho cleared, spoke with Dr. Lion regarding his discharge instructions. She will be transported to [place] today to continue rehab there post surgery. Status at Discharge Functional status at discharge: uses cane/walker Overall status at discharge: patient is not back to baseline Time Spent with Patient Time attestation: Total time spent providing and/or coordinating discharge services: Exam Narrative: General: A well-developed, nontoxic-appearing female lying in bed in no acute distress. HEENT: Normocephalic, atraumatic. PERRL, EOMI. Oral mucosa moist. Neck: Supple. Respiratory: Lungs are clear to auscultation bilaterally. Cardiovascular: RRR with S1-S2. Gastrointestinal: Abdomen is soft, obese, nontender, and nondistended with positive bowel sounds. Skin: Warm and dry. Bruise on the dorsum of the right hand. Extremities: Radial and pedal pulses intact. Arthritic changes of the fingers. Neurovascularly intact distal to the fracture site. Neurological: Alert and oriented x3. No gross focal deficits to casual conversation. Psychiatric: Pleasant and cooperative with normal mood and affect. Judgment and insight intact. DS: Data Data Completed and Pending Labs on day of discharge: Labs from last 24 hours 04/21/23 10:34 SARS-CoV-2 RNA (RT-PCR) Negative Discharge Plan Discharge Attending physician on discharge: Miky Zabala Consulting providers: James Lion; Felipa Putnam Discharging Clinician: Felipa Putnam Anticipated Discharge Date/Time: 04/21/23 10:01 Patient Disposition: SNF Activity: follow weight bearing status Diet: regular Discharge Instructions: Follow up with Dr. Lion in 2 weeks for staple removal. Take your medications as directed. Follow touch weight bearing status until you follow up with Orthopedics. Keep your dressing and wound clean. Monitor your incision for any signs of infection, the yolette will remain in place until removed by the doctor. Patient Instructions: Rivaroxaban (By mouth), Safe Use of Anticoagulants (GEN), Blood Thinners (GEN) Stand Alone Forms: General Discharge Inform
== END 2023-04-21 13:10 | DRG 482 ==
LOC: ANHED 16:14 → ANH3MEDSUR 18:34 → ANH2MED 20:17
PROVIDERS: Internal Medicine; Orthopaedic Surgery; Physician Assistant; Admitting Provider Internal Medicine; Emergency Provider Emergency Medicine; Visit Provider Nurse Practitioner
PROC: 0QH934Z Insertion of Internal Fixation Device into Left Femoral Shaft, Percutaneous Approach (ICD-10-PCS; principal; 2023-04-18 07:30)
DX: S72.032A Displaced midcervical fracture of left femur, initial encounter for closed fracture (principal); S60.221A Contusion of right hand, initial encounter; W10.9XXA Fall (on) (from) unspecified stairs and steps, initial encounter; E78.5 Hyperlipidemia, unspecified; F41.9 Anxiety disorder, unspecified; I10 Essential (primary) hypertension; J44.9 Chronic obstructive pulmonary disease, unspecified; M19.90 Unspecified osteoarthritis, unspecified site; M81.0 Age-related osteoporosis without current pathological fracture; Z98.41 Cataract extraction status, right eye; Z11.52 Encounter for screening for COVID-19; Z98.42 Cataract extraction status, left eye; Z96.612 Presence of left artificial shoulder joint
CPT/HCPCS: 36415; 71045; 73130; 73502; 80048; 83735; 85025; 85027; 85610; 85730; 87635; 93005; 96374; 96376; 97110; 97161; 97165; 97530; 97535; 99199; 99285; A9270; C1713; C1769; G0378; J0690; J1100; J1170; J2270; J2405; J2704; J3010; J7030; J7120

== ENCOUNTER 2024-01-21 15:03 | Outpatient (CLI) | payer MEDICARE, SELFPAY ==
--- NOTE | ~2024-01-21 | XR_ITS ---
XR shoulder RT min 2V Ordering provider: Troy Hart MD History: . M19.011 - Primary osteoarthritis, right shoulder . Comparison: March 11, 2023 FINDINGS: BONES: No acute fracture or dislocation. Osteophyte seen inferiorly in the humeral head. Degenerative changes seen at the site of insertion of the supraspinatus tendon. JOINT SPACES: The acromioclavicular joint is normal. The glenohumeral joint severe osteoarthritic karlene nges. SOFT TISSUES: Normal. IMPRESSION: No acute osseous abnormality right shoulder. Severe osteoarthritic changes of the glenohumeral joint. Reviewed, dictated and finalized at location A.
--- NOTE | ~2024-01-21 | XR_ITS ---
XR shoulder LT min 2V Ordering provider: Troy Hart MD History: . 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 Comparison: March 11, 2023 FINDINGS: BONES: No acute fracture or dislocation. JOINT SPACES: The acromioclavicular joint is normal. Left shoulder arthroplasty. SOFT TISSUES: Normal. IMPRESSION: Left shoulder arthroplasty unchanged from previous examination. Consider MRI of the shoulder if there is concern for soft tissue internal derangement. Reviewed, dictated and finalized at location A. IMPRESSION: Left shoulder arthroplasty unchanged from previous examination. Consider MRI of the shoulder if there is concern for soft tissue internal deran thais.
== END 2024-01-21 15:04 | disposition home or self-care (01) ==
PROVIDERS: Visit Provider Orthopaedic Surgery
DX: M19.011 Primary osteoarthritis, right shoulder (principal); M19.012 Primary osteoarthritis, left shoulder; Z96.612 Presence of left artificial shoulder joint
CPT/HCPCS: 73030

== ENCOUNTER 2024-02-09 13:03 | Outpatient (CLI) | payer MEDICARE, SELFPAY ==
--- NOTE | ~2024-02-09 | CT_ITS ---
EXAMINATION: CT shoulder RT wo con DATE: 02/09/2024 13:48 INDICATION: Right shoulder primary osteoarthritis. Preoperative planning. TECHNIQUE: Computed tomography (CT) of the right shoulder was performed without intravenous contrast. Automated exposure control and iterative reconstruction technique were employed. The dose-length pro duct was 245.98 mGy-cm. COMPARISON: Right shoulder radiographs 01/21/2024 FINDINGS: Alignment is normal. No fracture. There is severe osteoarthritis of glenohumeral joint and moderate osteoarthritis of acromioclavicular joint. There is no asymmetric fatty atrophy of the rotat or cuff muscle bellies. IMPRESSION: 1. Polyarticular osteoarthritis. Reviewed, dictated and finalized at location A.
== END 2024-02-09 13:04 | disposition home or self-care (01) ==
PROVIDERS: Visit Provider Orthopaedic Surgery
DX: M19.011 Primary osteoarthritis, right shoulder (principal)
CPT/HCPCS: 73200

== ENCOUNTER 2024-03-14 15:13 | Outpatient (CLI) | payer MEDICARE, SELFPAY ==
--- NOTE | ~2024-03-14 | MM_ITS ---
EXAMINATION: MM screening elysia BI w tonya HISTORY: Screening TECHNIQUE: Craniocaudal and mediolateral oblique 3-D tomosynthesis images were obtained and synthetic 2-D images were generated. CAD analysis was submitted and interpreted. COMPARISON: Comparison to multiple prior studies sequentially, with oldest reviewed study dated 11/17. BREAST PARENCHYMAL COMPOSITION: Not dense: There are scattered areas of fibroglandular density. FINDINGS: There is no evidence of suspicious mass, calcification, or architectural distortion to sugg est malignancy in either breast. There has been no suspicious interval change. IMPRESSION: 1. No mammographic evidence of malignancy. 2. Recommend routine screening mammography in one year. BI-RADS Category 1: Negative Reviewed, dictated and finalized at location B.
== END 2024-03-14 15:14 | disposition home or self-care (01) ==
LOC: ANHIMG 15:17
DX: Z12.31 Encounter for screening mammogram for malignant neoplasm of breast (principal)
CPT/HCPCS: 77063; 77067

== ENCOUNTER 2024-05-20 11:11 | Outpatient (CLI) | payer MEDICARE, SELFPAY ==
--- NOTE | 2024-05-20 12:32 | ECG_ITS ---
Test Date: 2024-05-20 12:44:15 Measurements Intervals Ashby Rate: 58 P: 3 DC: 151 QRS: -6 QRSD: 98 T: -8 QT: 438 QTc: 433 Interpretive Statements SINUS BRADYCARDIA MODERATE T-WAVE ABNORMALITY, CONSIDER ANTERIOR ISCHEMIA [-0.1+ mV T WAVE IN V3/V4] WARNING: DATA QUALITY MAY AFFECT INTERPRETATION No previous ECG available for comparison Electronically Signed On 05-20-2024 18:44:55 FIRE MARSHAL REFINERY by Fidel Kinney M.D.
[2024-05-20 12:53] LABS: Basophils Absolute Auto 0.1 K/mm3 (0.0-0.1); Basophils Percent Auto 0.7 % (0.2-1.2); Eosinophils Absolute Auto 0.2 K/mm3 (0-0.3); Eosinophils Percent Auto 1.8 % (0-4.4); Hematocrit 39.3 % (37.0-47.0); Hemoglobin 13.5 g/dL (12.0-15.0); Immature Granulocyte Absolute 0.02 K/mm3 (0.00-0.031); Immature Granulocyte Percent A 0.2 % (0-0.5); Lymphocytes Absolute Auto 1.89 K/mm3 (0.9-3.2); Lymphocytes Percent Auto 19.8 % (18.3-44.2); Mean Corpuscular HGB Conc 34.4 g/dl (32-36); Mean Corpuscular Hemoglobin 30.4 pg (26-34); Mean Corpuscular Volume 88.5 fl (80-100); Mean Platelet Volume 9.9 fl (7.4-10.4); Monocytes Absolute Auto 0.9 K/mm3 (0.1-0.6); Monocytes Percent Auto 9.8 % (2.6-8.5); Neutrophils Absolute Auto 6.5 K/mm3 (1.3-6.7); Neutrophils Percent Auto 67.7 % (45.5-73.1); Platelet Count Result 211 k/mm3 (150-375); Red Blood Count 4.44 M/mm3 (4.2-5.4); Red Cell Distribution Width 12.7 % (11.5-14.5); White Blood Count 9.6 K/mm3 (4.5-10.0)
[2024-05-20 13:04] LABS: Anion Gap 10 mmol/L (4-12); Blood Urea Nitrogen 18 mg/dL (7-17); Calcium 9.7 mg/dL (8.4-10.2); Carbon Dioxide 26 mmol/L (22-30); Chloride 103 mmol/L (98-107); Estimated Glomerular Filt Rate 48; Glucose 95 mg/dL (65-110); Potassium 3.7 mmol/L (3.4-5.0); Sodium 139 mmol/L (137-145)
[2024-05-20 14:06] LABS: MRSA (PCR) NOT DETECTED (NOT DETECTE)
== END 2024-05-20 11:12 | disposition home or self-care (01) ==
LOC: ANHSURGERY 11:18
PROVIDERS: Anesthesiology; Visit Provider Orthopaedic Surgery
DX: M19.011 Primary osteoarthritis, right shoulder (principal); I10 Essential (primary) hypertension; Z01.818 Encounter for other preprocedural examination
CPT/HCPCS: 36415; 80048; 85025; 87641; 93005

== ENCOUNTER 2024-10-25 14:09 | Outpatient (CLI) | payer MEDICARE, SELFPAY ==
--- NOTE | ~2024-10-25 | CT_ITS ---
EXAMINATION: CT LE RT wo con DATE: 10/25/2024 14:24 INDICATION: Right knee osteoarthritis for preoperative planning. TECHNIQUE: High resolution computed tomography (CT) of the right lower extremity from the hip through the ankle was performed without intravenous contrast. Additional sagittal and coronal reconstruction s were performed. Automated exposure control and iterative reconstruction technique were employed. Th e dose-length product was 1846.11 mGy-cm. COMPARISON: Radiographs dated 10/10/2024 FINDINGS: Old healed fracture at the surgical neck of the left femur which is fixed with 3 lag screws. Alignmen t is normal. No acute fracture. 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 No hip joint effusion. Tricompartmental osteoarthritis at the left knee, moderate to sev ere at the lateral aspect of the patellofemoral compartment and moderate at the lateral compartment a nd mild at the medial compartment although severity of joint space narrowing in the medial lateral co mpartments could be underestimated on nonweightbearing imaging. No knee joint effusion. There is mode rate sigmoid diverticulosis without adjacent from trace stranding to suggest diverticular colitis. Th e uterus is not identified and has likely been surgically resected. No pathologically enlarged pelvic or inguinal lymphadenopathy. IMPRESSION: 1. Right knee tricompartmental osteoarthritis, moderate to severe at the patellofemoral compartment. Reviewed, dictated and finalized at location A. IMPRESSION: 1. Right knee tricompartmental osteoarthritis, moderate to severe at the patell ofemoral compartment.
--- OUTSIDE RECORDS SUMMARY | 2024-10-25 13:55 | XMS_ITS | Encounter Summary ---
Author Organization [facility] Address [address] [place] [address] Care Team Providers Care Cotton Seed Culler Name Role Phone Dominick Grigsby MD Primary Care Provider [phone] Encounter Details Date Type Department Care Team (Late st Contact Info) Description 05/13/2005 Outpatient Historical [facility] Internal Medicine 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 Gender Identity Not on file Sexual Orientation Not on file documented as of this encounter Plan of Treatment Upcoming Encounters Date Type Department Care Team (Late st Contact Info) Description 12/05/2024 1:30 PM CDT Office Visit [facility] Primary Care [facility] Blum [address] [place] [address] Dominick Grigsby MD [address] [place] [address] documented as of this encounter Visit Diagnoses Not on filedocumented in this encounter Care Teams Cotton Seed Culler Relationship Specialty Start Date End Date Dominick Grigsby MD [address] [facility] [address] [place] [address] PCP - General 10/11/01 documented as of this encounter
--- OUTSIDE RECORDS SUMMARY | 2024-10-25 13:55 | XMS_ITS | Encounter Summary ---
Author Organization [facility] Address 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 [address] [place] [address] Dominick Grigsby MD [address] [place] [address] documented as of this encounter Visit Diagnoses Diagnosis Carpal tunnel syndrome- Primary documented in this encounter Care Teams Planogrammer Relationship Specialty Start Date End Date Dominick Grigsby MD [address] [place] [address] PCP - General 10/11/01 documented as of this encounter
--- OUTSIDE RECORDS SUMMARY | 2024-10-25 13:55 | XMS_ITS | Encounter Summary ---
Author Organization [facility] Address 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 Gender Identity Not on file Sexual Orientation Not on file documented as of this encounter Plan of Treatment Upcoming Encounters Date Type Department Care Team (Late st Contact Info) Description 12/05/2024 1:30 PM CDT Office [facility]by Jimenez [address] [place] [address] Dominick Grigsby MD [address] [place] [address] documented as of this encounter Visit Diagnoses Diagnosis Pain in joint, forearm- Primary documented in this encounter Care Teams Trailer Sections Assembler Relationship Specialty Start Date End Date Dominick Grigsby MD [address] [place] [address] PCP - General 10/11/01 documented as of this encounter
--- OUTSIDE RECORDS SUMMARY | 2024-10-25 13:55 | XMS_ITS | Encounter Summary ---
Author Organization [facility] Address [address] [place] [address] Care Team Providers Care Wind Tunnel Engineer Name Role Phone Dominick Grigsby MD Primary Care Provider Encounter Details Date Type Department Care Team (Late st Contact Info) Description 05/09/2004 Outpatient Historical [facility] Internal Medicine 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 Gender Identity Not on file Sexual Orientation Not on file documented as of this encounter Plan of Treatment Upcoming Encounters Date Type Department Care Team (Late st Contact Info) Description 12/05/2024 1:30 PM CDT Office Visit [facility] Primary Care [facility] Blum [address] [place] [address] Dominick Grigsby MD [address] [place] [address] documented as of this encounter Visit Diagnoses Not on filedocumented in this encounter Care Teams Wind Tunnel Engineer Relationship Specialty Start Date End Date Dominick Grigsby MD [address] [facility] [address] [place] [address] PCP - General 10/11/01 documented as of this encounter
--- OUTSIDE RECORDS SUMMARY | 2024-10-25 13:55 | XMS_ITS | Encounter Summary ---
Author Organization [facility] Address [address] [place] [address] Care Team Providers Care Aluminum Siding Mechanic Name Role Phone Dominick Grigsby MD Primary Care Provider [phone] Encounter Details Date Type Department Care Team (Late st Contact Info) Description 08/31/2007 Orders Only [facility] Internal Medicine [address] [place] [address] Dominick Grigsby MD [address] [facility] [address] [place] [address] Social History Tobacco Use Types Packs/Day Years Used Date Smoking Tobacco: Never Assessed Comments Unknown Sex and Gender Information Value Date Recorded Sex Assigned at Not on file 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 PHARMACY NUMBER: OTHER INFORMATION: Pt wants 90 day supply of omeprazole 20mg has appt 11/13 for [facility]/ SECTION 1: DOCTOR`S RESPONSE: [email or web address] 08/31/07 at 12:10 pm MEDICATIONS: Call in to Pharmacy OMEPRAZOLE ORAL CAPSULE DELAYED RELEASE 20 MG CAPSULE, 1 Every Day, 90 Dispensed, 3 Fills, 90 Duration/Days Supply, status: CONTINUED, 08/31/2007. FINAL ACTION: angelika 08/31/07 at 01:53 pm Spoke with patient 08/31/07 at 01:53 pm. Called pharmacy at 08/31/07 at 01:53 pm. /jeny Electronically Signed by: Hortencia Ty on Friday, August 31, 2007 documented in this encounter Plan of Treatment Upcoming Encounters Date Type Department Care Team (Late st Contact Info) Description 12/05/2024 1:30 PM CDT Office Visit [facility] Primary Care [facility] [address] [place] [address] Dominick Grigsby MD [address] [place] [address] documented as of this encounter Visit Diagnoses Not on filedocumented in this encounter Care Teams Aluminum Siding Mechanic Relationship Specialty Start Date End Date Dominick Grigsby MD [address] [place] [address] PCP - General 10/11/01 documented as of this encounter
--- OUTSIDE RECORDS SUMMARY | 2024-10-25 13:55 | XMS_ITS | Encounter Summary ---
Author Organization [facility] Address 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 Gender Identity Not on file Sexual Orientation Not on file documented as of this encounter Plan of Treatment Upcoming Encounters Date Type Department Care Team (Late st Contact Info) Description 12/05/2024 1:30 PM CDT Office Visit [facility] [address] [place] [address] Dominick Grigsby MD [address] [place] [address] documented as of this encounter Visit Diagnoses Not on filedocumented in this encounter Care Teams Pension Administrator Relationship Specialty Start Date End Date Dominick Grigsby MD [address] [facility] [place] [address] PCP - General 10/11/01 documented as of this encounter
--- OUTSIDE RECORDS SUMMARY | 2024-10-25 13:55 | XMS_ITS | Encounter Summary ---
Author Organization [facility] Address [address] [place] [address] Care Team Providers Care Audiovisual Librarian Name Role Phone Dominick Grigsby MD Primary Care Provider [phone] Encounter Details Date Type Department Care Team (Late st Contact Info) Description 01/27/2007 Orders Only [facility] Internal Medicine 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 Gender Identity Not on file Sexual Orientation Not on file documented as of this encounter Plan of Treatment Upcoming Encounters Date Type Department Care Team (Late st Contact Info) Description 12/05/2024 1:30 PM CDT Office Visit [facility] [address] [place] [address] Dominick Grigsby MD [address] [place] [address] documented as of this encounter Visit Diagnoses Not on filedocumented in this encounter Care Teams Audiovisual Librarian Relationship Specialty Start Date End Date Dominick Grigsby MD [address] [facility] [address] [place] [address] PCP - General 10/11/01 documented as of this encounter
--- OUTSIDE RECORDS SUMMARY | 2024-10-25 13:55 | XMS_ITS | Referral Summary ---
Author Organization [facility] [address] Address [address] [place] [address] Care Team Providers Care Television Servicer Name Role Phone Dominick Grigsby MD Primary Care Provider Allergies No known active allergies Social History Tobacco Use Types Packs/Day Years Used Date Smoking Tobacco: Never Assessed Personal Safety Answer Date Recorded Getting School Help Needed Not on file 05/18 Comments Unknown Sex and Gender Information Value Date Recorded Sex Assigned at Not on file Legal Sex Female 12:53 PM DEPUTY CORONER Gender Identity Not on file Sexual Orientation Not on file Plan of Treatment Not on file Insurance [facility] Address: [facility] [address] [place] [address] [facility] MEDICARE ADVANTAGE Care Teams Television Servicer Relationship Specialty Start Date End Date Dominick Grigsby MD PCP - General Internal Medicine 10/21/22
--- OUTSIDE RECORDS SUMMARY | 2024-10-25 13:55 | XMS_ITS | Encounter Summary ---
Author Organization [facility] Address [address] [place] [address] Care Team Providers Care Straddle Bug Name Role Phone Dominick Grigsby MD Primary Care Provider [phone] Encounter Details Date Type Department Care Team (Late st Contact Info) Description 09/17/2005 Outpatient Historical [facility] Internal Medicine [address] [place] [address] Dominick Grigsby MD [address] [facility] [address] [place] [address] Social History Tobacco Use Types Packs/Day Years Used Date Smoking Tobacco: Never Assessed Comments Unknown Sex and Gender Information Value Date Recorded Sex Assigned at Not on file 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 Gender Identity Not on file Sexual Orientation Not on file documented as of this encounter Last Filed Vital Signs Vital Sign Reading Time Taken Comments Blood Pressure 120/88 09/17/2005 3:15 PM CDT Pulse 80 09/17/2005 3:15 PM CDT Temperature 37.8 C (100 F) 09/17/2005 3:15 PM CDT Respiratory Rate - - Oxygen Saturation - - Inhaled Oxygen Concentration - - Weight 79.8 kg (176 lb) 09/17/2005 3:15 PM CDT Height - - Body Mass Index - - documented in this encounter Plan of Treatment Upcoming Encounters Date Type Department Care Team (Late st Contact Info) Description 12/05/2024 1:30 PM CDT Office Visit [facility] Primary Care [facility] [address] [place] [address] Dominick Grigsby MD [address] [place] [address] documented as of this encounter Visit Diagnoses Not on filedocumented in this encounter Care Teams Straddle Bug Relationship Specialty Start Date End Date Dominick Grigsby MD [address] [place] [address] PCP - General 10/11/01 documented as of this encounter
--- OUTSIDE RECORDS SUMMARY | 2024-10-25 13:55 | XMS_ITS | Encounter Summary ---
Author Organization [facility] Address [address] [place] [address] Care Team Providers Care Holder Pile Driving Name Role Phone Dominick Grigsby MD Primary Care Provider [phone] Encounter Details Date Type Department Care Team (Late st Contact Info) Description 08/29/2004 Outpatient Historical [facility] Internal Medicine 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 Gender Identity Not on file Sexual Orientation Not on file documented as of this encounter Plan of Treatment Upcoming Encounters Date Type Department Care Team (Late st Contact Info) Description 12/05/2024 1:30 PM CDT Office Visit [facility] [address] [place] [address] Dominick Grigsby MD [address] [place] [address] documented as of this encounter Visit Diagnoses Not on filedocumented in this encounter Care Teams Holder Pile Driving Relationship Specialty Start Date End Date Dominick Grigsby MD [address] [facility] [address] [place] [address] PCP - General 10/11/01 documented as of this encounter
--- OUTSIDE RECORDS SUMMARY | 2024-10-25 13:55 | XMS_ITS | Encounter Summary ---
Author Organization [facility] Address [address] [place] [address] Care Team Providers Care Business Analytics Specialist Name Role Phone Dominick Grigsby MD Primary Care Provider [phone] Encounter Details Date Type Department Care Team (Latest Contact Info) Description 12/22/2007 Outpatient Historical [facility] Dominick Grigsby MD [address] [place] [address] Unspecified Osteoporosis Social History Tobacco Use Types Packs/Day Years Used Date Smoking Tobacco: Never Alcohol Use Standard Drinks/Week Comments Yes 1.7 (1 standard drink = 0.6 oz p ure alcohol) Comments No Sex and Gender Information Value Date Recorded Sex Assigned at Not on file 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 Female 3:52 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 Gender Identity Not on file Sexual Orientation Not on file documented as of this encounter Plan of Treatment Upcoming Encounters Date Type Department Care Team (Late st Contact Info) Description 12/05/2024 1:30 PM CDT Office [facility] [address] [place] [address] Dominick Grigsby MD [address] [place] [address] documented as of this encounter Visit Diagnoses Diagnosis Osteoporosis, unspecified documented in this encounter Care Teams Business Analytics Specialist Relationship Specialty Start Date End Date Dominick Grigsby MD [address] [facility] [address] [place] [phone] PCP - General 10/11/01 documented as of this encounter
--- OUTSIDE RECORDS SUMMARY | 2024-10-25 13:55 | XMS_ITS | Encounter Summary ---
Author Organization [facility] [employer] Address [address] [place] [address] Care Team Providers Care Bid Analyst Name Role Phone Dominick Grigsby MD Primary Care Provider [phone] Encounter Details Date Type Department Care Team (Late st Contact Info) Description 10/08/2005 Orders Only [facility] Internal Medicine [address] [place] [address] Dominick Grigsby MD [address] 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 ALTERNATIVE PHONE NUMBER: [phone] WHO CALLED: Patient called. PHARMACY NUMBER: [facility]: [id number] SECTION 1: REQUESTED ACTION shawn 10/08/05 at 09:43 am: MEDICATION REQUEST: Patient requests a refill. Trazodone 100mg 1 tablet at HS. #90/rll DOCTOR`S RESPONSE: anyi 10/08/05 at 01:07 pm MEDICATIONS: Call in to Pharmacy TRAZODONE HCL ORAL TABLET 100 MG, 1 Every Day At Bedtime, 90 Dispensed, 3 Fills, 30 Duration/Days Supply, status: NEW PRESCRIPTION, 10/08/2005. FINAL ACTION: constantinerl 10/08/05 at 01:22 pm Spoke with patient 10/08/05 at 01:22 pm. patient aware/rll Called pharmacy at 10/08/05 at 01:22 pm. spoke with Pasquale/rll Electronically Signed by: Lisa Collins on Saturday, October 08, 2005 documented in this encounter Plan of Treatment Upcoming Encounters Date Type Department Care Team (Late st Contact Info) Description 12/05/2024 1:30 PM CDT Office Visit [facility] Gabby Jimenez [address] [place] [address] Dominick Grigsby MD [address] [place] [address] documented as of this encounter Visit Diagnoses Not on filedocumented in this encounter Care Teams Bid Analyst Relationship Specialty Start Date End Date Dominick Grigsby MD [address] [facility] [place] [address] PCP - General 10/11/01 documented as of this encounter
--- OUTSIDE RECORDS SUMMARY | 2024-10-25 13:55 | XMS_ITS | Encounter Summary ---
Author Organization [facility] Address [address] [place] [address] Care Team Providers Care Route Returner Name Role Phone Dominick Grigsby MD Primary Care Provider [phone] Encounter Details Date Type Department Care Team (Late st Contact Info) Description 05/26/2007 Outpatient Historical [facility] Internal Medicine [address] [place] [address] Dominick Grigsby MD [address] [facility] [address] [place] [address] Social History Tobacco Use Types Packs/Day Years Used Date Smoking Tobacco: Never Assessed Comments Unknown Sex and Gender Information Value Date Recorded Sex Assigned at Not on file Legal Sex Female 3:52 AM CANDLE WRAPPING MACHINE OPERATOR Gender Identity Not on file Sexual Orientation Not on file documented as of this encounter Last Filed Vital Signs Vital Sign Reading Time Taken Comments Blood Pressure 122/80 05/26/2007 2:00 PM CANDLE WRAPPING MACHINE OPERATOR Pulse 65 05/26/2007 2:00 PM CANDLE WRAPPING MACHINE OPERATOR Temperature - - Respiratory Rate - - Oxygen Saturation - - Inhaled Oxygen Concentration - - Weight 70.8 kg (156 lb) 05/26/2007 2:00 PM CANDLE WRAPPING MACHINE OPERATOR Height 171.5 cm (5' 7.5 ) 05/26/2007 2:00 PM CANDLE WRAPPING MACHINE OPERATOR Body Mass Index 24.07 05/26/2007 2:00 PM CANDLE WRAPPING MACHINE OPERATOR documented in this encounter Plan of Treatment Upcoming Encounters Date Type Department Care Team (Late st Contact Info) Description 12/05/2024 1:30 PM CDT Office Visit [facility] Gabby Jimenez [address] [place] [address] Dominick Grigsby MD [address] [place] [address] documented as of this encounter Visit Diagnoses Not on filedocumented in this encounter Care Teams Route Returner Relationship Specialty Start Date End Date Dominick Grigsby MD [address] [place] [address] PCP - General 10/11/01 documented as of this encounter
--- OUTSIDE RECORDS SUMMARY | 2024-10-25 13:55 | XMS_ITS | Encounter Summary ---
Author Organization [facility] Address [address] [place] [address] Care Team Providers Care Canine Service Teacher Name Role Phone Dominick Grigsby MD Primary Care Provider [phone] Encounter Details Date Type Department Care Team (Late st Contact Info) Description 06/09/2007 Outpatient Historical [facility] Internal Medicine 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 COUNT OPERATOR Gender Identity Not on file Sexual Orientation Not on file documented as of this encounter Plan of Treatment Upcoming Encounters Date Type Department Care Team (Late st Contact Info) Description 12/05/2024 1:30 PM CDT Office Visit [facility] [address] [place] [address] Dominick Grigsby MD [address] [place] [address] documented as of this encounter Visit Diagnoses Not on filedocumented in this encounter Care Teams Canine Service Teacher Relationship Specialty Start Date End Date Dominick Grigsby MD [address] [facility] [address] [place] [address] PCP - General 10/11/01 documented as of this encounter
--- OUTSIDE RECORDS SUMMARY | 2024-10-25 13:55 | XMS_ITS | Clinical Summary ---
Author Organization [facility] [address] [facility] [address] [place] [address] Care Team Providers Care Laminated Plastics Assembler And Gluer Name Role Phone Dominick Grigsby MD Primary Care Provider Allergies No known active allergies Social History Tobacco Use Types Packs/Day Years Used Date Smoking Tobacco: Never Assessed Personal Safety Answer Date Recorded Getting School Help Needed Not on file 05/18 Comments Unknown Sex and Gender Information Value Date Recorded Sex Assigned at Not on file Legal Sex Female 12:53 PM FAMILY MEDICINE CHAIR Gender Identity Not on file Sexual Orientation Not on file Plan of Treatment Health Maintenance Due Date Last Done Comments Depression Screening 1948 Fall Risk Assessment 1950 Hepatitis C Screening 1950 Osteoporosis Screening-Bone Density Scan 1948 Hepatitis B Screening 1966 Well Visit 65+ 2013 Covid-19 Vaccine (2023-2 5 season) 2024 03/14/2022, 09/24/2021, 04/04/2021, Additional history exists Influenza Vaccine (#1) 2024 2, 03/08/2021, 02/07/2021, Additional history exists DTaP/Tdap/Td Vaccine (4 - Td or Tdap) 06/26/2027 06/26/2017, 12/10/2009, 05/28/2006, Additional history exists Pneumococcal vaccine 65+ Completed 016, 11/10/2014, 05/29/2009 Zoster Vaccine Completed 02/05/2018, 07/0 02/2018, 09/28/2017 Insurance Care Teams Laminated Plastics Assembler And Gluer Relationship Specialty Start Date End Date Dominick Grigsby MD PCP - General Internal Medicine 10/21/22
--- OUTSIDE RECORDS SUMMARY | 2024-10-25 13:55 | XMS_ITS | Encounter Summary ---
Author Organization [facility] Address [address] [place] [address] Care Team Providers Care Retirement Officer Name Role Phone Dominick Grigsby MD Primary Care Provider [phone] Encounter Details Date Type Department Care Team (Late st Contact Info) Description 06/06/2004 Outpatient Historical [facility] Internal Medicine 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 [address] [place] [address] Dominick Grigsby MD [address] [place] [address] documented as of this encounter Visit Diagnoses Not on filedocumented in this encounter Care Teams Retirement Officer Relationship Specialty Start Date End Date Dominick Grigsby MD [address] [facility] [address] [place] [address] PCP - General 10/11/01 documented as of this encounter
--- OUTSIDE RECORDS SUMMARY | 2024-10-25 13:55 | XMS_ITS | Clinical Summary ---
Author Organization [facility] Address [address] [place] [address] Care Team Providers Care Tumbler Operator Name Role Phone Unavailable Primary Care Provider Unavailabl e Source Comments [facility],non-owned Affiliates and Associated Physician Practices is amultiple site organization consisting of ambulatory clinics and hospital sitesin [place], [place], [place] and [place]. This disclosure is being madepursuant to the Care Everywhere program and may not contain all information available regarding this patient. Last updated 18.[facility] Medical Social History Tobacco Use Types Packs/Day Years Used Date Smoking Tobacco: Never Assessed Comments Unknown Sex and Gender Information Value Date Recorded Sex Assigned at Not on file Legal Sex Female 5:51 AM CEMENT TESTER ASSISTANT Gender Identity Not on file Sexual Orientation Not on file Plan of Treatment Health Maintenance Due Date Last Done Comments BONE DENSITY TESTING 1950 HEPATITIS C SCREENING 05/12/1966 DTAP/TDAP/TD VACCINES (1 - Tdap) 1967 PNEUMOCOCCAL VACCINE 50+ (1 of 1 - PCV) 1998 ZOSTER VACCINE (1 of 2) 1998 Respiratory Syncytial Virus (RSV) Vaccine Pt: or over 60 yrs (1 - 1-dose 75+ series) 2023 COVID-19 VACCINE ( - 2023-2 5 season) 2024 DEPRESSION SCREENING 06/08/2024 INFLUENZA VACCINE (Season Ended) 2025 HEPATITIS B VACCINE Aged Out No longe r eligible based on patient's age to complete this topic HIB VACCINE Aged Out No longer eligi ble based on patient's age to complete this topic HPV VACCINE Aged Out No longer eligi ble based on patient's age to complete this topic MENINGOCOCCAL (Group B) VACC INE SHARED DECISION-MAKING Aged Out No longer eligibl e based on patient's age to complete this topic MENINGOCOCCAL GROUPS A/C/Y/W VACCINE Aged Out No longer eligible b ased on patient's age to complete this topic Insurance [facility] MANAGED MEDICARE ADV MEDICARE
--- OUTSIDE RECORDS SUMMARY | 2024-10-25 13:55 | XMS_ITS | Encounter Summary ---
Author Organization [facility] Address [address] [place] [address] Care Team Providers Care Meter Mechanic Name Role Phone Dominick Grigsby MD Primary Care Provider [phone] Encounter Details Date Type Department Care Team (Late st Contact Info) Description 05/28/[address] [facility] Internal Medicine [address] [place] [address] Dominick Grigsby MD [address] [place] [address] Social History Tobacco Use Types Packs/Day Years Used Date Smoking Tobacco: Never Assessed Comments Unknown Sex and Gender Information Value Date Recorded Sex Assigned at Not on file Legal Sex Female 3:52 AM DOCUMENT PHOTOGRAPHER Gender Identity Not on file Sexual Orientation Not on file documented as of this encounter Last Filed Vital Signs Vital Sign Reading Time Taken Comments Blood Pressure 126/74 05/28/2005 2:45 PM DOCUMENT PHOTOGRAPHER Pulse - - Temperature 37.3 C (99.1 F) 05/28/2005 2:45 PM DOCUMENT PHOTOGRAPHER Respiratory Rate - - Oxygen Saturation - - Inhaled Oxygen Concentration - - Weight 79.8 kg (176 lb) 05/28/2005 2:45 PM DOCUMENT PHOTOGRAPHER Height - - Body Mass Index - - documented in this encounter Plan of Treatment Upcoming Encounters Date Type Department Care Team (Late st Contact Info) Description 12/05/2024 1:30 PM CDT Office Visit [facility] Primary Care [facility] Gabby Jimenez [address] [place] [address] Dominick Grigsby MD [address] [place] [address] documented as of this encounter Visit Diagnoses Not on filedocumented in this encounter Care Teams Meter Mechanic Relationship Specialty Start Date End Date Dominick Grigsby MD [address] [place] [address] PCP - General 10/11/01 documented as of this encounter
--- OUTSIDE RECORDS SUMMARY | 2024-10-25 13:55 | XMS_ITS | Encounter Summary ---
Author Organization [facility] Address [address] [place] [address] Care Team Providers Care Deicer Inspector Electric Name Role Phone Dominick Grigsby MD Primary Care Provider [phone] Reason for Visit * Reason Comments Medication Refill Encounter Details Date Type Department Care Team (Late st Contact Info) Description 06/25/2018 Refill [facility] [address] [facility] [address] [place] [address] Dominick Grigsby MD [address] [place] [address] [address] [place] [address] Social History Tobacco Use Types Packs/Day Years Used Date Smoking Tobacco: Never Smokeless Tobacco: Never Alcohol Use Standard Drinks/Week Comments Yes 0.8 (1 standard drink = 0.6 oz p ure alcohol) rarely Comments No Sex and Gender Information Value Date Recorded Sex Assigned at Not on file Legal Sex Female 3:52 AM WIRE STITCHER Gender Identity Not on file Sexual Orientation Not on file Occupation Industry Job Start Date Job End Date Not on file Not on file Not on file Not on file documented as of this encounter Miscellaneous Notes * Telephone Encounter - Koki Santos - 06/25/2018 7:04 AM CST Last ov - 11/24/2017 Last refill-06/10/2018 STITCHER documented in this encounter Plan of Treatment Upcoming Encounters Date Type Department Care Team (Late st Contact Info) Description 12/05/2024 1:30 PM CDT Office Visit [facility] i[facility] [address] [place] [address] Dominick Grigsby MD [address] [place] [address] documented as of this encounter Visit Diagnoses Not on filedocumented in this encounter Care Teams Deicer Inspector Electric Relationship Specialty Start Date End Date Dominick Grigsby MD [address] [place] [address] PCP - General 10/11/01 documented as of this encounter
--- OUTSIDE RECORDS SUMMARY | 2024-10-25 13:55 | XMS_ITS | Encounter Summary ---
Author Organization [facility] Address [address] [place] [address] Care Team Providers Care Color Mixer Name Role Phone Dominick Grigsby MD Primary Care Provider [phone] Encounter Details Date Type Department Care Team (Late st Contact Info) Description 09/26/2003 Outpatient Historical [facility] Internal Medicine [address] [place] [address] Dominick Grigsby MD [address] [place] [address] Social History Tobacco Use Types Packs/Day Years Used Date Smoking Tobacco: Never Assessed Comments Unknown Sex and Gender Information Value Date Recorded Sex Assigned at Not on file Legal Sex Female 3:52 AM CHUMMER Gender Identity Not on file Sexual Orientation Not on file documented as of this encounter Plan of Treatment Upcoming Encounters Date Type Department Care Team (Late st Contact Info) Description 12/05/2024 1:30 PM CDT Office Visit [facility] [address] [place] [address] Dominick Grigsby MD [address] [place] [address] documented as of this encounter Visit Diagnoses Not on filedocumented in this encounter Care Teams Color Mixer Relationship Specialty Start Date End Date Dominick Grigsby MD [address] [facility] [address] [place] [address] PCP - General 10/11/01 documented as of this encounter
--- OUTSIDE RECORDS SUMMARY | 2024-10-25 13:55 | XMS_ITS | Encounter Summary ---
Author Organization [facility] Address [address] [place] [address] Care Team Providers Care Auto Parts Manager Name Role Phone Dominick Grigsby MD Primary Care Provider [phone] Encounter Details Date Type Department Care Team (Late st Contact Info) Description 01/12/2006 Orders Only [facility] Internal Medicine [address] [place] [address] Dominick Grigsby MD [address] [facility] [address] [place] [address] Social History Tobacco Use Types Packs/Day Years Used Date Smoking Tobacco: Never Assessed Comments Unknown Sex and Gender Information Value Date Recorded Sex Assigned at Not on file Legal Sex Female 3:52 AM ENGLISH DRAWER Gender Identity Not on file Sexual Orientation Not on file documented as of this encounter Progress Notes * Dominick Grigsby MD - 03/16/2008 10:05 PM CDT TIME:09:59 am PATIENT`S HOME PHONE: PATIENT`S WORK PHONE: PATIENT`S INSURANCE: [employer] [facility] WHO TOOK THE CALL: Lisa Collins L GENERAL INFORMATION PATIENT STATUS: Established Patient. WHO CALLED: Patient called. ALTERNATIVE PHONE NUMBER: [phone] PHARMACY NUMBER: [phone] [facility] SECTION 1: REQUESTED ACTION shawn 01/12/06 at 09:59 am: MEDICATION REQUEST: MEDICATION REQUEST: Patient requests a refill. Diclofenac Na 50mg 1 tablet BID #180/rll DOCTOR`S RESPONSE: anyi 01/12/06 at 10:06 am MEDICATIONS: DICLOFENAC SODIUM ORAL TABLET ENTERIC COATED 50 MG, 1 Two Times A Day, 180 Dispensed, 3 Fills, status: CONTINUED, 01/12/2006. FINAL ACTION: lamprl 01/12/06 at 12:16 pm Spoke with patient 01/12/06 at 12:20 pm. patient aware/rll Called pharmacy at 01/12/06 at 12:17 pm. spoke with Jacquelin/rll Electronically Signed by: Lisa Collins on Thursday, January 12, 2006 documented in this encounter Plan of Treatment Upcoming Encounters Date Type Department Care Team (Late st Contact Info) Description 12/05/2024 1:30 PM CDT Office Visit [facility] Primary Care [facility] Gabby Jimenez [address] [place] [address] Dominick Grigsby MD [address] [place] [address] documented as of this encounter Visit Diagnoses Not on filedocumented in this encounter Care Teams Auto Parts Manager Relationship Specialty Start Date End Date Dominick Grigsby MD [address] [place] [address] PCP - General 10/11/01 documented as of this encounter
--- OUTSIDE RECORDS SUMMARY | 2024-10-25 13:55 | XMS_ITS | Encounter Summary ---
Author Organization [facility] Address [address] [place] [address] Care Team Providers Care Handle Attacher Name Role Phone Dominick Grigsby MD Primary Care Provider [phone] Encounter Details Date Type Department Care Team (Late st Contact Info) Description 10/31/2005 Outpatient Historical [facility] Internal Medicine [address] [place] [address] Dominick Grigsby MD [address] [place] [address] Social History Tobacco Use Types Packs/Day Years Used Date Smoking Tobacco: Never Assessed Comments Unknown Sex and Gender Information Value Date Recorded Sex Assigned at Not on file Legal Sex Female 3:52 AM PRODUCTION ENGINEER Gender Identity Not on file Sexual Orientation Not on file documented as of this encounter Last Filed Vital Signs Vital Sign Reading Time Taken Comments Blood Pressure 132/72 10/31/2005 1:15 PM CDT Pulse 76 10/31/2005 1:15 PM CDT Temperature - - Respiratory Rate - - Oxygen Saturation - - Inhaled Oxygen Concentration - - Weight 81.6 kg (180 lb) 10/31/2005 1:15 PM CDT Height - - Body Mass Index - - documented in this encounter Plan of Treatment Upcoming Encounters Date Type Department Care Team (Late st Contact Info) Description 12/05/2024 1:30 PM CDT Office Visit [facility] Primary Care [facility] Gabby Jimenez [address] [place] [address] Dominick Grigsby MD [address] [place] [address] documented as of this encounter Visit Diagnoses Not on filedocumented in this encounter Care Teams Handle Attacher Relationship Specialty Start Date End Date Dominick Grigsby MD [address] [place] [address] PCP - General 10/11/01 documented as of this encounter
--- OUTSIDE RECORDS SUMMARY | 2024-10-25 13:55 | XMS_ITS | Encounter Summary ---
Author Organization [facility] Address [address] [place] [address] Care Team Providers Care Vehicle Dynamics Engineer Name Role Phone Dominick Grigsby MD Primary Care Provider [phone] Encounter Details Date Type Department Care Team (Late st Contact Info) Description 05/02/2003 Outpatient Historical [facility] Internal Medicine [address] [place] [address] Dominick Grigsby MD [address] [place] [address] Social History Tobacco Use Types Packs/Day Years Used Date Smoking Tobacco: Never Assessed Comments Unknown Sex and Gender Information Value Date Recorded Sex Assigned at Not on file Legal Sex Female 3:52 AM EDUCATION PROGRAM MANAGER Gender Identity Not on file Sexual Orientation Not on file documented as of this encounter Plan of Treatment Upcoming Encounters Date Type Department Care Team (Late st Contact Info) Description 12/05/2024 1:30 PM CDT Office Visit [facility] [address] [place] [address] Dominick Grigsby MD [address] [place] [address] documented as of this encounter Visit Diagnoses Not on filedocumented in this encounter Care Teams Vehicle Dynamics Engineer Relationship Specialty Start Date End Date Dominick Grigsby MD 300 [facility] [address] [place] [address] PCP - General 10/11/01 documented as of this encounter
--- OUTSIDE RECORDS SUMMARY | 2024-10-25 13:55 | XMS_ITS | Encounter Summary ---
Author Organization [facility] Address [address] [place] [address] Care Team Providers Care Dispensing Operator Name Role Phone Dominick Grigsby MD Primary Care Provider [phone] Encounter Details Date Type Department Care Team (Late st Contact Info) Description 10/31/2004 Outpatient Historical [facility] Internal Medicine [address] [place] [address] Dominick Grigsby MD [address] [place] [address] Social History Tobacco Use Types Packs/Day Years Used Date Smoking Tobacco: Never Assessed Comments Unknown Sex and Gender Information Value Date Recorded Sex Assigned at Not on file Legal Sex Female 3:52 AM BEATER ENGINEER HELPER Gender Identity Not on file Sexual Orientation Not on file documented as of this encounter Plan of Treatment Upcoming Encounters Date Type Department Care Team (Late st Contact Info) Description 12/05/2024 1:30 PM CDT Office Visit [facility] [address] [place] [address] Dominick Grigsby MD [address] [place] [address] documented as of this encounter Visit Diagnoses Not on filedocumented in this encounter Care Teams Dispensing Operator Relationship Specialty Start Date End Date Dominick Grigsby MD 300 [facility] [address] [place] [address] PCP - General 10/11/01 documented as of this encounter
--- OUTSIDE RECORDS SUMMARY | 2024-10-25 13:55 | XMS_ITS | Encounter Summary ---
Author Organization [facility] Address [address] [place] [address] Care Team Providers Care Vice President Network Development Name Role Phone Dominick Grigsby MD Primary Care Provider [phone] Encounter Details Date Type Department Care Team (Late st Contact Info) Description 09/07/2003 Outpatient Historical [facility] Internal Medicine [address] [place] [address] Dominick Grigsby MD [address] [place] [address] Social History Tobacco Use Types Packs/Day Years Used Date Smoking Tobacco: Never Assessed Comments Unknown Sex and Gender Information Value Date Recorded Sex Assigned at Not on file Legal Sex Female 3:52 AM ECONOMIC FORECASTER Gender Identity Not on file Sexual Orientation Not on file documented as of this encounter Plan of Treatment Upcoming Encounters Date Type Department Care Team (Late st Contact Info) Description 12/05/2024 1:30 PM CDT Office Visit [facility] [address] [place] [address] Dominick Grigsby MD [address] [place] [address] documented as of this encounter Visit Diagnoses Not on filedocumented in this encounter Care Teams Vice President Network Development Relationship Specialty Start Date End Date Dominick Grigsby MD 300 [facility] [address] [place] [address] PCP - General 10/11/01 documented as of this encounter
--- OUTSIDE RECORDS SUMMARY | 2024-10-25 13:55 | XMS_ITS | Encounter Summary ---
Author Organization [facility] Address [address] [place] [address] Care Team Providers Care Animal Husbandman Name Role Phone Dominick Grigsby MD Primary Care Provider [phone] Encounter Details Date Type Department Care Team (Late st Contact Info) Description 12/18/2005 Orders Only [facility] Internal Medicine [address] [place] [address] Dominick Grigsby MD 300 [facility] [address] [place] [address] Social History Tobacco Use Types Packs/Day Years Used Date Smoking Tobacco: Never Assessed Comments Unknown Sex and Gender Information Value Date Recorded Sex Assigned at Not on file 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 ALTERNATIVE PHONE NUMBER: [phone] WHO CALLED: Patient called. PHARMACY NUMBER: [facility]: [id number] SECTION 1: REQUESTED ACTION shawn 12/18/05 at 10:05 am: MEDICATION REQUEST: Patient requests a refill. Fosamax 70mg 1 tablet weekly. #12/rll DOCTOR`S RESPONSE: [email or web address] 12/18/05 at 01:36 pm MEDICATIONS: Call in to Pharmacy FOSAMAX ORAL TABLET 70 MG, WEEKLY, 4 Dispensed, 11 Fills, 30 Duration/Days Supply, status: CONTINUED, 12/18/2005. FINAL ACTION: lamprl 12/18/05 at 01:50 pm Spoke with patient 12/18/05 at 01:56 pm. patient aware/rll Called pharmacy at 12/18/05 at 01:50 pm. spoke with Jakob - patient gets 90 day supply with refills. OK'd for #12 with 3 refills./rll Electronically Signed by: Lisa Collins on , December 18, 2005 documented in this encounter Plan of Treatment Upcoming Encounters Date Type Department Care Team (Late st Contact Info) Description 12/05/2024 1:30 PM CDT Office Visit [facility] Gab[facility] Jimenez [address] [place] [address] Dominick Grigsby MD [address] [place] [address] documented as of this encounter Visit Diagnoses Not on filedocumented in this encounter Care Teams Animal Husbandman Relationship Specialty Start Date End Date Dominick Grigsby MD [address] [place] [address] PCP - General 10/11/01 documented as of this encounter
--- OUTSIDE RECORDS SUMMARY | 2024-10-25 13:55 | XMS_ITS | Encounter Summary ---
Author Organization [facility] Address 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 Gender Identity Not on file Sexual Orientation Not on file documented as of this encounter Plan of Treatment Upcoming Encounters Date Type Department Care Team (Late st Contact Info) Description 12/05/2024 1:30 PM CDT Office Visit [facility] [address] [place] [address] Dominick Grigsby MD [address] [place] [address] documented as of this encounter Visit Diagnoses Not on filedocumented in this encounter Care Teams Rubber Goods Tester Relationship Specialty Start Date End Date Dominick Grigsby MD [address] [place] [address] PCP - General 10/11/01 documented as of this encounter
--- OUTSIDE RECORDS SUMMARY | 2024-10-25 13:55 | XMS_ITS | Encounter Summary ---
Author Organization [facility] Address [address] [place] [address] Care Team Providers Care Capture Manager Name Role Phone Dominick Grigsby MD Primary Care Provider [phone] Encounter Details Date Type Department Care Team (Latest Contact Info) Description 05/30/2008 Outpatient Historical [facility] [address] Dominick Grigsby MD [address] [place] [address] Routine Gynecological Examination Social History Tobacco Use Types Packs/Day Years Used Date Smoking Tobacco: Never Alcohol Use Standard Drinks/Week Comments Yes 1.7 (1 standard drink = 0.6 oz p ure alcohol) Comments No Sex and Gender Information Value Date Recorded Sex Assigned at Not on file 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 Gender Identity Not on file Sexual Orientation Not on file documented as of this encounter Plan of Treatment Upcoming Encounters Date Type Department Care Team (Late st Contact Info) Description 12/05/2024 1:30 PM CDT Office Visit [facility] [address] [place] [address] Dominick Grigsby MD [address] [place] [address] documented as of this encounter Visit Diagnoses Diagnosis Routine gynecological examination documented in this encounter Care Teams Capture Manager Relationship Specialty Start Date End Date Dominick Grigsby MD 300 [facility] [address] [place] [address] PCP - General 10/11/01 documented as of this encounter
--- OUTSIDE RECORDS SUMMARY | 2024-10-25 13:55 | XMS_ITS | Clinical Summary ---
Author Organization [facility] Address [address] [place] [address] Care Team Providers Care Elevator Constructor Name Role Phone Dominick Grigsby MD Primary Care Provider [phone] Allergies Active Allergy Reactions Criticality Noted Date Comments Gemfibrozil Other (See Comments) 07/05/2013 Joint pain Penicillins Rash Low 03/27/2014 Medications FA/MV,CA,FE,MIN/L YCOPENE/LUT (MULTIVITAL ORAL) Take by mouth. Active [place]-3 Fatty Acids 1,000 mg Oral Cap Take 2,000 mg by mouth 2 times daily. Active celecoxib (CeleBREX) 100 mg capsule Take 200 mg by mouth. Active traZODone (DESYREL) 100 mg tablet TAKE 1 TABLET BY MOUTH DAILY AT BEDTIME 90 Tablet 3 03/30/20 24 Active escitalopram oxalate (LEXAPRO) 20 mg tabletIndications :Stress at home take 1 tablet by mouth daily 90 Tablet 3 03/30/20 24 Active amLODIPine (NORVASC) 10 mg tabletIndications :Essential hypertension, benign Take 1 Tablet (10 mg) by mouth daily. 100 Tablet 2 05/02/20 24 Active benzonatate (TESSALON) 200 mg capsule Take 1 Capsule (200 mg) by mouth 3 times daily as needed for Cough. 30 Capsule 05/20/20 24 Active HYDROcodone-aceta minophen (NORCO) 7.5-325 mg TabletIndications :Spondylosis of lumbar region without myelopathy or radiculopathy Take 1 Tablet by mouth every 4 hours as needed for Pain, Moderate. Max Daily Amount: 6 Tablets 60 Tablet 09/13/19 25 Active rosuvastatin (CRESTOR) 10 mg tabletIndications :Mixed hyperlipidemia TAKE 1 TABLET BY MOUTH DAILY 100 Tablet 10/05/19 25 Active losartan (COZAAR) 100 mg tabletIndications :Essential hypertension, benign Take 1 Tablet (100 mg) by mouth daily. 100 Tablet 10/05/19 25 Active hydroCHLOROthiazi de (MICROZIDE) 12.5 mg capsuleIndication s:Essential hypertension, benign Take 1 Capsule (12.5 mg) by mouth daily. 100 Capsule 10/05/19 25 Active omeprazole (PriLOSEC) 20 mg Capsule, Delayed Release(E.C.) Take 2 Capsules (40 mg) by mouth daily. 200 Capsule 10/05/19 25 Active omeprazole (PriLOSEC) 20 mg Capsule, Delayed Release(E.C.) take 2 capsules by mouth daily 200 Capsule 3 01/15/20 24 025 Discontinued(R eorder) rosuvastatin (CRESTOR) 10 mg tablet take 1 tablet by mouth daily 100 Tablet 2 01/25/20 24 025 Discontinued hydroCHLOROthiazi de (MICROZIDE) 12.5 mg capsuleIndication s:Essential hypertension, benign Take 1 Capsule (12.5 mg) by mouth daily. 100 Capsule 2 05/02/20 24 025 Discontinued(R eorder) losartan (COZAAR) 100 mg tabletIndications :Essential hypertension, benign Take 1 Tablet (100 mg) by mouth daily. 100 Tablet 2 05/02/20 24 025 Discontinued(R eorder) Active Problems Problem Noted Date Diagnosed Date Primary osteoarthritis of right shoulder 018 Spondylosis of lumbar region without myelopathy or radiculopathy 01/01/2017 Stress at home 12/28/2013 Mixed hyperlipidemia 08/22/2013 Major depressive disorder wi th single episode, in partial remission 10/07/2011 Iron defic anemia NEC 11/06/2010 CKD (chronic kidney disease) stage 3, GFR 30-59 ml/min 11/06/2010 Pain in joint, shoulder region 06/20/2009 Disorder of lipoid metabolism 12/11/2006 Family history of unspecified malignant neoplasm 10/31/2005 Osteoporosis 10/31/2005 Nonspecific abnormal electrocardiogram (ECG) (EK G) 05/13/2005 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 Hypertensive kidney disease with chronic kidney disease stage III 05/07/1995 Resolved Problems Problem Noted Date Diagnosed Date Resolved Date Pure hypercholesterolemia 06/03/2012 Foot pain 03/03/2011 03/18/2019 Melena 11/06/2010 03/30/2012 Upper GI bleed 11/06/2010 03/30/2012 Gastrointestinal ulcer 11/06/201003/30 Hyponatremia 11/06/2010 03/30/2012 Acute posthemorrhagic anemia 11/06/2010 03/30/2012 Hyperkalemia 11/06/2010 03/18/2019 Anxiety state 12/14/2009 09/20/2018 Rash 12/14/2008 05/29/2010 Muscle strain 12/14/2008 05/29/2010 Routine general medical exam ination at a health care facility 05/26/2007 12/01/2007 Need for prophylactic vaccin ation with combined jziujtkmhp-sujxoal-satndslxe (DTP) vaccine 05/28/2006 12/01/2007 Routine gynecological examination 05/21/2006 12/01/2007 Unspecified sinusitis (chronic) 10/21/2005 12/01/2007 Acute sinusitis, unspecified 09/17/2005 12/01/2007 Acute bronchitis 05/28/2005 12/01/2007 Encounters Date Type Department Care Team Description 10/04/2024 Refill [facility] Primary Care [address] [place] [address] Dominick Grigsby MD Essential hypertension, benign 10/03/2024 Refill [facility] Primary Care [facility] [address] [place] [phone] Dominick Grigsby MD Mixed hyperlipidemia (Primary Dx) 09/12/2024 Refill [facility] Primary Care [email or web address] [address] [place] [address] Dominick Grigsby MD Spondylosis of lumbar region without myelopathy or radiculopathy from Last 3 Months Immunizations Immunization Administration Dates Next Due (ADACEL/BOOSTRIX)(10 YR UP) TDAP VACCINE, 0.5ML, IM 06/26/2017,05/28/2006 (PNEUMOVAX 23)(50 YRS UP) PN EUMOCOCCAL POLYSACCHARIDE (PPV23) 0.5 ML, IM 06/21/2015,05/29/2009 (PREVNAR 13)(6 WKS UP) PNEUM OCOCCAL CONJUGATE (PCV13) 0.5 ML, IM 11/10/2014 (SHINGRIX)(50 YRS UP) ZOSTER VACCINE RECOMBINANT, 0.5 ML, IM 02/05/2018,12/14/2017,09/28/2017 (TDVAX)(7 YRS UP) TETANUS AN D DIPHTHERIA TOXOIDS, ADSORBED (2 LF OF TETANUS TOXOID AND 2 LF OF DIPHTHERIA TOXOID), 0.5ML (PF), IM 12/10/2009,05/07/1995,06/08/1985 INFLUENZA VACCINE HIGH DOSE QUADRIVALENT 65 YR UP PF IM 03/03/2023,01/31/2020 Influenza Seasonal Unspecifi ed Formulation IM 03/08/2021,03/08/2010 Influenza Vaccine High Dose 65+ Yrs IM 9,03/30/2018,02/08/2016 Family History Medical History Relation Name Comments Cancer Father Cancer Mother ovary or uterin e Heart Disease Mother High Cholesterol Mother Colon Cancer Neg Hx Relation Name Status Comments Father Mother Social History Tobacco Use Types Packs/Day Years Used Date Smoking Tobacco: Never Smokeless Tobacco: Never Alcohol Use Standard Drinks/Week Comments Yes 0.8 (1 standard drink = 0.6 oz p ure alcohol) rarely Financial Resource Strain Answer Date R ecorded How hard is it for you to pa y for the very basics like food, housing, medical care, and heating? Not hard at all 10/29/2021 Food Insecurity Answer Date Recorded In the past 12 months, have you worried that your food would run out before you had money to buy more? Never true 10/29/2021 In the past 12 months, did y ou run out of food and didn't have money to buy more? Never true 10/29/2021 Transportation Needs Answer Date Record ed In the past 12 months, has l ack of transportation kept you from medical appointments or from getting medications? 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 Gender Identity Not on file Sexual Orientation Not on file Occupation Industry Job Start Date Job End Date Not on file Not on file Not on file Not on file Last Filed Vital Signs Vital Sign Reading Time Taken Comments Blood Pressure 130/78 12/04/2023 1:19 PM CDT Pulse 78 12/04/2023 1:19 PM CDT Temperature 36.4 C (97.5 F) 12/04/2023 1:19 PM CDT Respiratory Rate 20 11/10/2014 1:34 PM CDT Oxygen Saturation 94% 12/04/2023 1:19 PM CDT Inhaled Oxygen Concentration - - Weight 84.1 kg (185 lb 6.4 oz) 12/04/2023 1:19 P M CDT Height 170.2 cm (5' 7 ) 12/04/2023 1:19 PM CDT Body Mass Index 29.04 12/04/2023 1:19 PM CDT Plan of Treatment Upcoming Encounters Date Type Department Care Team (Late st Contact Info) Description 12/05/2024 1:30 PM CDT Office Visit [facility] Primary Care [facility] [address] [place] [address] Dominick Grigsby MD [address] [place] [address] Health Maintenance Due Date Last Done Comments RSV VACCINE (60+ or ) (1 - 1-dose 75+ series) 2023 INFLUENZA VACCINE (#1) 2024 3, 03/08/2021, 01/31/2020, Additional history exists Medicare Advantage ([place]) Preventative Visit/Annual Wellness Visit 06/08/2024 12/04/2023, 11/21/2022, 10/29/2021, Additional history exists OSTEOPOROSIS SCREENING 01/28/2027 2, 01/23/2017, 04/28/2014, Additional history exists DTAP/TDAP/TD VACCINES (4 - T d or Tdap) 06/26/2027 06/26/2017, 12/10/2009, 05/28/2006, Additional history exists PNEUMOCOCCAL VACCINE 50+ YEARS Completed 0 06/21/2015, 11/10/2014, 05/29/2009 ZOSTER VACCINE Completed 02/05/2018, 0702/2018, 09/28/2017 COLORECTAL SCREENING Discontinued 11/06/2021, 03/19/2017, 05/05/2006 Colorectal Cancer Screening Discontinued FIT-DNA Q 3 years Discontinued FIT/FOBT Q 1 year Discontinued Flex Sig/CT Colonography Q 5 years Discontinued Medical Devices Implanted Type Area Yard Goods Salesperson Device Identifier Shelf Expiration Date Model / Serial / Lot Loop Polyp [id number] - [id number] Implanted:Qty: 1 on 07/06/2013 by Armin Garrison MD at [facility] Hemostatic [employer] 02/06/2015 [id number] / / Procedures Procedure Name Priority Date/Time Associated Diagnosis Comments XR DEXA BONE DENSITY AXIAL 1 OR MORE SITES Routine 01/28/2022 Menopausal and perimenopausal disorder COLONOSCOPY REPORT Routine 11/06/2021 from Last 3 Months or Most Recently Relevant to Health Maintenance Results * XR DEXA BONE DENSITY AXIAL 1 OR MORE SITES (01/28/2022) Anatomical Region Laterality Modality Other us Dominick Grigsby MD DIAGNOSTIC IMAGING ORDERABLES Final Result * COLONOSCOPY REPORT (11/06/2021) us Rafael Bunch MD GI PROCEDURE ORDERABLES Final Re sult [facility] CLIA# [id number] [address] [address] from Last 3 Months or Most Recently Relevant to Health Maintenance Insurance Advance Directives For more information, please contact: [phone] * Full Code (Latest Code Status on File) Date Activated Date Inactivated Comments 07/06/2013 6:33 AM 07/06/2013 11:27 AM * Full Code Date Activated Date Inactivated Comments 11/06/2010 10:57 PM 11/08/2010 5:14 PM * Full Code Date Activated Date Inactivated Comments 03/07/2010 5:50 AM 03/07/2010 6:25 PM * Full Code Date Activated Date Inactivated Comments 11/15/2009 5:54 AM 11/15/2009 8:29 PM Care Teams Elevator Constructor Relationship Specialty Start Date End Date Dominick Grigsby MD [address] [phone] PCP - General 10/11/01
--- OUTSIDE RECORDS SUMMARY | 2024-10-25 13:55 | XMS_ITS | Encounter Summary ---
Author Organization [facility] Address [address] [place] [address] Care Team Providers Care Database Management System Specialist Name Role Phone Dominick Grigsby MD Primary Care Provider [phone] Encounter Details Date Type Department Care Team (Late st Contact Info) Description 04/27/2003 Outpatient Historical [facility] Internal Medicine 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 Gender Identity Not on file Sexual Orientation Not on file documented as of this encounter Plan of Treatment Upcoming Encounters Date Type Department Care Team (Late st Contact Info) Description 12/05/2024 1:30 PM CDT Office Visit [facility] [address] [place] [address] Dominick Grigsby MD [address] [place] [address] documented as of this encounter Visit Diagnoses Not on filedocumented in this encounter Care Teams Database Management System Specialist Relationship Specialty Start Date End Date Dominick Grigsby MD 300 [facility] [address] [place] [address] PCP - General 10/11/01 documented as of this encounter
--- OUTSIDE RECORDS SUMMARY | 2024-10-25 13:55 | XMS_ITS | Encounter Summary ---
Author Organization [facility] Address [address] [place] [address] Care Team Providers Care Budget Clerk Name Role Phone Dominick Grigsby MD Primary Care Provider [phone] Encounter Details Date Type Department Care Team (Late st Contact Info) Description 03/17/2007 Orders Only [facility] Internal Medicine 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 Gender Identity Not on file Sexual Orientation Not on file documented as of this encounter Plan of Treatment Upcoming Encounters Date Type Department Care Team (Late st Contact Info) Description 12/05/2024 1:30 PM CDT Office Visit [facility] Blum [address] [place] [address] Dominick Grigsby MD [address] [place] [address] documented as of this encounter Visit Diagnoses Not on filedocumented in this encounter Care Teams Budget Clerk Relationship Specialty Start Date End Date Dominick Grigsby MD [address] [facility] [address] [place] [address] PCP - General 10/11/01 documented as of this encounter
--- OUTSIDE RECORDS SUMMARY | 2024-10-25 13:55 | XMS_ITS | Encounter Summary ---
Author Organization [facility] Address 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 Female 3:52 AM BOX REPAIRER Gender Identity Not on file Sexual Orientation Not on file documented as of this encounter Plan of Treatment Upcoming Encounters Date Type Department Care Team (Late st Contact Info) Description 12/05/2024 1:30 PM CDT Office Visit [facility] [address] [place] [address] Dominick Grigsby MD [address] [place] [address] documented as of this encounter Visit Diagnoses Diagnosis Nonspecific abnormal electrocardiogram (ECG) (EKG)- Primary documented in this encounter Care Teams Wet Finisher Wool Relationship Specialty Start Date End Date Dominick Grigsby MD [address] [place] [address] PCP - General 10/11/01 documented as of this encounter
--- OUTSIDE RECORDS SUMMARY | 2024-10-25 13:55 | XMS_ITS | Encounter Summary ---
Author Organization [facility] Address [address] [place] [address] Care Team Providers Care Savings Counselor Name Role Phone Dominick Grigsby MD Primary Care Provider [phone] Encounter Details Date Type Department Care Team (Late st Contact Info) Description 09/27/[address] 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 WHO CALLED: Pharmacy called. PHARMACY NUMBER: [phone] SECTION 1: REQUESTED ACTION shawn 09/27/07 at 10:56 am: MEDICATION REQUEST: MEDICATION REQUEST: Patient requests a refill. Trazodone 100mg #30. last fill: 08/28/07/rll DOCTOR`S RESPONSE: anyi 09/27/07 at 11:10 am MEDICATIONS: TRAZODONE HCL ORAL TABLET 100 MG, 1 Every Day At Bedtime, 30 Dispensed, 5 Fills, 30 Duration/Days Supply, status: CONTINUED, 09/27/2007. FINAL ACTION: lamprl 09/27/07 at 02:30 pm Called pharmacy at 09/27/07 at 02:30 pm. voice mail/rll Electronically Signed by: Lisa Collins on Thursday, September 27, 2007 documented in this encounter Plan of Treatment Upcoming Encounters Date Type Department Care Team (Late st Contact Info) Description 12/05/2024 1:30 PM CDT Office Visit [facility] Primary Care [facility] [address] [place] [address] Dominick Grigsby MD [address] [place] [address] documented as of this encounter Visit Diagnoses Not on filedocumented in this encounter Care Teams Savings Counselor Relationship Specialty Start Date End Date Dominick Grigsby MD [address] [place] [address] PCP - General 10/11/01 documented as of this encounter
--- OUTSIDE RECORDS SUMMARY | 2024-10-25 13:55 | XMS_ITS | Encounter Summary ---
Author Organization [facility] Address [address] [place] [address] Care Team Providers Care Steel Pickler Name Role Phone Dominick Grigsby MD Primary Care Provider [phone] Encounter Details Date Type Department Care Team (Late st Contact Info) Description 05/17/2004 Outpatient Historical [facility] Support [facility] (Adt Cardiology-[facility]) [address] [place] [address] Cruz Crum Social History Tobacco Use Types Packs/Day Years Used Date Smoking Tobacco: Never Assessed Comments Unknown Sex and Gender Information Value Date Recorded Sex Assigned at Not on file Legal Sex Female 3:52 AM CO OP Gender Identity Not on file Sexual Orientation Not on file documented as of this encounter Plan of Treatment Upcoming Encounters Date Type Department Care Team (Late Contact Info) Description 12/05/2024 1:30 PM CDT Office Visit [facility] Primary Care [address] [place] [address] Dominick Grigsby MD [address] [place] [address] documented as of this encounter Visit Diagnoses Not on filedocumented in this encounter Care Teams Steel Pickler Relationship Specialty Start Date End Date Dominick Grigsby MD [address] [place] [address] PCP - General 10/11/01 documented as of this encounter
--- OUTSIDE RECORDS SUMMARY | 2024-10-25 13:55 | XMS_ITS | Encounter Summary ---
Author Organization [facility] Address [address] [place] [address] Care Team Providers Care Family Court Justice Name Role Phone Dominick Grigsby MD Primary Care Provider [phone] Encounter Details Date Type Department Care Team (Late st Contact Info) Description 05/13/2005 Outpatient Historical [facility] Internal Medicine [address] [place] [address] Dominick Grigsby MD [address] [place] [address] Social History Tobacco Use Types Packs/Day Years Used Date Smoking Tobacco: Never Assessed Comments Unknown Sex and Gender Information Value Date Recorded Sex Assigned at Not on file Legal Sex Female 3:52 AM BPM DEVELOPER Gender Identity Not on file Sexual Orientation Not on file documented as of this encounter Plan of Treatment Upcoming Encounters Date Type Department Care Team (Late st Contact Info) Description 12/05/2024 1:30 PM CDT Office Visit [facility] Primary Care OFmark Blum [address] [place] [address] Dominick Grigsby MD [address] [place] [address] documented as of this encounter Visit Diagnoses Not on filedocumented in this encounter Care Teams Family Court Justice Relationship Specialty Start Date End Date Dominick Grigsby MD [address] [facility] [address] [place] [address] PCP - General 10/11/01 documented as of this encounter
--- OUTSIDE RECORDS SUMMARY | 2024-10-25 13:55 | XMS_ITS | Encounter Summary ---
Author Organization [facility] Address [address] [place] [address] Care Team Providers Care Pug Mill Operator Name Role Phone Dominick Grigsby MD Primary Care Provider [phone] Encounter Details Date Type Department Care Team (Late st Contact Info) Description 08/01/2004 Outpatient Historical [facility] Internal Medicine 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 Gender Identity Not on file Sexual Orientation Not on file documented as of this encounter Plan of Treatment Upcoming Encounters Date Type Department Care Team (Late st Contact Info) Description 12/05/2024 1:30 PM CDT Office Visit [facility] [address] [place] [address] Dominick Grigsby MD [address] [place] [address] documented as of this encounter Visit Diagnoses Not on filedocumented in this encounter Care Teams Pug Mill Operator Relationship Specialty Start Date End Date Dominick Grigsby MD [address] [facility] [address] [place] [address] PCP - General 10/11/01 documented as of this encounter
--- OUTSIDE RECORDS SUMMARY | 2024-10-25 13:55 | XMS_ITS | Encounter Summary ---
Author Organization [facility] Address [address] [place] [address] Care Team Providers Care High School Admissions Representative Name Role Phone Dominick Grigsby MD Primary Care Provider [phone] Encounter Details Date Type Department Care Team (Late st Contact Info) Description 03/19/2006 Orders Only [facility] Internal Medicine [address] [place] [address] Dominick Grigsby MD [address] [facility] [address] [place] [address] Social History Tobacco Use Types Packs/Day Years Used Date Smoking Tobacco: Never Assessed Comments Unknown Sex and Gender Information Value Date Recorded Sex Assigned at Not on file 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 WHO CALLED: Patient called. ALTERNATIVE PHONE NUMBER: [phone] PHARMACY NUMBER: [facility]: [id number] SECTION 1: REQUESTED ACTION shawn 03/19/06 at 09:52 am: MEDICATION REQUEST: MEDICATION REQUEST: Patient requests a refill. HCTZ 25mg 1 tablet daily. #90/rll DOCTOR`S RESPONSE: anyi 03/19/06 at 10:26 am MEDICATIONS: HYDROCHLOROTHIAZIDE ORAL TABLET 25 MG, 1 Every Day, 90 Dispensed, 3 Fills, status: CONTINUED, 03/19/2006. FINAL ACTION: shawn 03/19/06 at 10:34 am Called pharmacy at 03/19/06 at 10:34 am. spoke with Foreign/danelle Electronically Signed by: Lisa Collins on March documented in this encounter Plan of Treatment Upcoming Encounters Date Type Department Care Team (Late st Contact Info) Description 12/05/2024 1:30 PM CDT Office Visit [facility] [address] [place] [address] Dominick Grigsby MD [address] [place] [address] documented as of this encounter Visit Diagnoses Not on filedocumented in this encounter Care Teams High School Admissions Representative Relationship Specialty Start Date End Date Dominick Grigsby MD [address] [place] [address] PCP - General 10/11/01 documented as of this encounter
--- OUTSIDE RECORDS SUMMARY | 2024-10-25 13:55 | XMS_ITS | Encounter Summary ---
Author Organization [facility] Address 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 Gender Identity Not on file Sexual Orientation Not on file documented as of this encounter Plan of Treatment Upcoming Encounters Date Type Department Care Team (Late st Contact Info) Description 12/05/2024 1:30 PM CDT Office Visit [facility] [address] [place] [address] Dominick Grigsby MD [address] [place] [address] documented as of this encounter Visit Diagnoses Diagnosis Osteoporosis, unspecified- Primary documented in this encounter Care Teams Front Office Specialist Relationship Specialty Start Date End Date Dominick Grigsby MD [address] [place] [address] PCP - General 10/11/01 documented as of this encounter
--- OUTSIDE RECORDS SUMMARY | 2024-10-25 13:55 | XMS_ITS | Encounter Summary ---
Author Organization [facility] Address [address] [place] [address] Care Team Providers Care Power Chisel Operator Name Role Phone Dominick Grigsby MD Primary Care Provider [phone] Encounter Details Date Type Department Care Team (Late st Contact Info) Description 11/01/2002 Outpatient Historical [facility] Internal Medicine 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 Gender Identity Not on file Sexual Orientation Not on file documented as of this encounter Plan of Treatment Upcoming Encounters Date Type Department Care Team (Late st Contact Info) Description 12/05/2024 1:30 PM CDT Office Visit [facility] Primary Care [facility] cent[facility] Blum [address] [place] [address] Dominick Grigsby MD [address] [place] [address] documented as of this encounter Visit Diagnoses Not on filedocumented in this encounter Care Teams Power Chisel Operator Relationship Specialty Start Date End Date Dominick Grigsby MD [address] [facility] [address] [place] [address] PCP - General 10/11/01 documented as of this encounter
--- OUTSIDE RECORDS SUMMARY | 2024-10-25 13:55 | XMS_ITS | Encounter Summary ---
Author Organization [facility] Address 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 Gender Identity Not on file Sexual Orientation Not on file documented as of this encounter Plan of Treatment Upcoming Encounters Date Type Department Care Team (Late st Contact Info) Description 12/05/2024 1:30 PM CDT Office Visit [facility] Primary Care OFallon [address]by [address]enez [address] [place] [address] Dominick Grigsby MD [address] [place] [address] documented as of this encounter Visit Diagnoses Diagnosis Disturbance of skin sensation- Primary documented in this encounter Care Teams Polymerization Supervisor Relationship Specialty Start Date End Date Dominick Grigsby MD [address] [place] [address] PCP - General 10/11/01 documented as of this encounter
--- OUTSIDE RECORDS SUMMARY | 2024-10-25 13:55 | XMS_ITS | Encounter Summary ---
Author Organization [facility] Address [address] [place] [address] Care Team Providers Care Records Section Supervisor Name Role Phone Dominick Grigsby MD Primary Care Provider [phone] Encounter Details Date Type Department Care Team (Late st Contact Info) Description 09/26/2005 Outpatient Historical [facility] Internal Medicine [address] [place] [address] Dominick Grigsby MD [address] [facility] [address] [place] [address] Social History Tobacco Use Types Packs/Day Years Used Date Smoking Tobacco: Never Assessed Comments Unknown Sex and Gender Information Value Date Recorded Sex Assigned at Not on file 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 Gender Identity Not on file Sexual Orientation Not on file documented as of this encounter Last Filed Vital Signs Vital Sign Reading Time Taken Comments Blood Pressure 148/80 09/26/2005 3:30 PM CDT Pulse 68 09/26/2005 3:30 PM CDT Temperature 37.3 C (99.2 F) 09/26/2005 3:30 PM CDT Respiratory Rate - - Oxygen Saturation - - Inhaled Oxygen Concentration - - Weight 78.5 kg (173 lb) 09/26/2005 3:30 PM CDT Height - - Body Mass Index - - documented in this encounter Plan of Treatment Upcoming Encounters Date Type Department Care Team (Late st Contact Info) Description 12/05/2024 1:30 PM CDT Office Visit [facility] Primary Care OFmark Pierre Jimenez [address] [place] [address] Dominick Grigsby MD [address] [place] [address] documented as of this encounter Visit Diagnoses Not on filedocumented in this encounter Care Teams Records Section Supervisor Relationship Specialty Start Date End Date Dominick Grigsby MD [address] [place] [address] PCP - General 10/11/01 documented as of this encounter
--- OUTSIDE RECORDS SUMMARY | 2024-10-25 13:55 | XMS_ITS | Encounter Summary ---
Author Organization [facility] Address [address] [place] [address] Care Team Providers Care Soil Engineer Name Role Phone Dominick Grigsby MD Primary Care Provider [phone] Encounter Details Date Type Department Care Team (Late st Contact Info) Description 10/21/2005 [facility] [place] [facility] 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 Gender Identity Not on file Sexual Orientation Not on file documented as of this encounter Last Filed Vital Signs Vital Sign Reading Time Taken Comments Blood Pressure 134/88 10/21/2005 2:30 PM CDT Pulse - - Temperature 36.8 C (98.3 F) 10/21/2005 2:30 PM CDT Respiratory Rate - - Oxygen Saturation - - Inhaled Oxygen Concentration - - Weight 81.6 kg (180 lb) 10/21/2005 2:30 PM CDT Height - - Body Mass Index - - documented in this encounter Plan of Treatment Upcoming Encounters Date Type Department Care Team (Late st Contact Info) Description 12/05/2024 1:30 PM CDT Office Visit [facility] Primary Care OFmark Jimenez [address] [place] [address] Dominick Grigsby MD [address] [place] [address] documented as of this encounter Visit Diagnoses Not on filedocumented in this encounter Care Teams Soil Engineer Relationship Specialty Start Date End Date Dominick Grigsby MD [address] [place] [address] PCP - General 10/11/01 documented as of this encounter
--- OUTSIDE RECORDS SUMMARY | 2024-10-25 13:55 | XMS_ITS | Encounter Summary ---
Author Organization [facility] Address [address] [place] [address] Care Team Providers Care Observer Gravity Prospecting Name Role Phone Dominick Grigsby MD Primary Care Provider [phone] Encounter Details Date Type Department Care Team (Latest Contact Info) Description 05/01/2003 Outpatient Historical [facility] Dominick Grigsby MD [address] [place] [address] PNEUMONIA, ORGANISM NOS (Primary Dx) Social History Tobacco Use Types Packs/Day Years Used Date Smoking Tobacco: Never Assessed Comments Unknown Sex and Gender Information Value Date Recorded Sex Assigned at Not on file 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 Primary Care [facility] [address] [place] [address] Dominick Grigsby MD [address] [place] [address] documented as of this encounter Visit Diagnoses Diagnosis Pneumonia, organism unspecified(486)- Primary Pneumonia, organism unspecified documented in this encounter Care Teams Observer Gravity Prospecting Relationship Specialty Start Date End Date Dominick Grigsby MD [address] [place] [address] PCP - General 10/11/01 documented as of this encounter
--- OUTSIDE RECORDS SUMMARY | 2024-10-25 13:55 | XMS_ITS | Encounter Summary ---
Author Organization [facility] Address 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 Gender Identity Not on file Sexual Orientation Not on file documented as of this encounter Plan of Treatment Upcoming Encounters Date Type Department Care Team (Late st Contact Info) Description 12/05/2024 1:30 PM CDT Office Visit [facility] [address] [place] [address] Dominick Grigsby MD [address] [place] [address] documented as of this encounter Visit Diagnoses Diagnosis Screening for neurological conditions- Primary documented in this encounter Care Teams Licensing Analyst Relationship Specialty Start Date End Date Dominick Grigsby MD [address] [place] [address] PCP - General 10/11/01 documented as of this encounter
--- OUTSIDE RECORDS SUMMARY | 2024-10-25 13:55 | XMS_ITS | Encounter Summary ---
Author Organization [facility] Address [address] [place] [address] Care Team Providers Care Medical Advisor Name Role Phone Dominick Grigsby MD Primary Care Provider [phone] Encounter Details Date Type Department Care Team (Late st Contact Info) Description 05/08/2003 Outpatient Historical [facility] Internal Medicine 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 Gender Identity Not on file Sexual Orientation Not on file documented as of this encounter Plan of Treatment Upcoming Encounters Date Type Department Care Team (Late st Contact Info) Description 12/05/2024 1:30 PM CDT Office Visit [facility] [address] [place] [address] Dominick Grigsby MD [address] [place] [address] documented as of this encounter Visit Diagnoses Not on filedocumented in this encounter Care Teams Medical Advisor Relationship Specialty Start Date End Date Dominick Grigsby MD [address] [facility] [address] [place] [address] PCP - General 10/11/01 documented as of this encounter
--- OUTSIDE RECORDS SUMMARY | 2024-10-25 13:56 | XMS_ITS | Encounter Summary ---
Author Organization [facility] Address [address] [place] [address] Care Team Providers Care Insulation Cutter Name Role Phone Dominick Grigsby MD Primary Care Provider [phone] Encounter Details Date Type Department Care Team (Late st Contact Info) Description 01/01/2007 Orders Only 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 @ [phone] PHARMACY NUMBER: [facility] @ # SECTION 1: REQUESTED ACTION rosa 01/01/07 at 03:23 pm: MEDICATION REQUEST: Pt needs 90 day refill of the Tricor? 145mg??--not loaded in EMR Rx List--Call to [facility]--AND just FY--pt has lost 9 lbs--has been trying really hard the last 3 wks.../[facility] DOCTOR`S RESPONSE: [email or web address] 01/01/07 at 04:02 pm MEDICATIONS: TRICOR ORAL TABLET 145 MG, 1 Every Day, 90 Dispensed, 3 Fills, status: NEW PRESCRIPTION, 01/01/2007. FINAL ACTION: chribr 01/01/07 at 04:12 pm Called pharmacy at 01/01/07 at 04:12 pm. bc Electronically Signed by: Mariajose Singh on Monday, January 01, 2007 documented in this encounter Plan of Treatment Upcoming Encounters Date Type Department Care Team (Late st Contact Info) Description 12/05/2024 1:30 PM CDT Office Visit [facility] Primary Care [facility] [address] [place] [address] Dominick Grigsby MD [address] [place] [address] documented as of this encounter Visit Diagnoses Not on filedocumented in this encounter Care Teams Insulation Cutter Relationship Specialty Start Date End Date Dominick Grigsby MD [address] [place] [address] PCP - General 10/11/01 documented as of this encounter
--- OUTSIDE RECORDS SUMMARY | 2024-10-25 13:56 | XMS_ITS | Encounter Summary ---
Author Organization [facility] Address [address] [place] [address] Care Team Providers Care Systems Technologist Name Role Phone Dominick Grigsby MD Primary Care Provider [phone] Encounter Details Date Type Department Care Team (Late st Contact Info) Description 09/02/2006 Orders Only [facility] Internal Medicine [address] [place] [address] Dominick Grigsby MD [address] [facility] [address] [place] [address] Social History Tobacco Use Types Packs/Day Years Used Date Smoking Tobacco: Never Assessed Comments Unknown Sex and Gender Information Value Date Recorded Sex Assigned at Not on file 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 WHO CALLED: Patient called. ALTERNATIVE PHONE NUMBER: [phone] PHARMACY NUMBER: [phone] SECTION 1: REQUESTED ACTION shawn 09/02/06 at 11:24 am: MEDICATION REQUEST: MEDICATION REQUEST: Patient requests a refill. 1. Diclofenac 50mg 1 tablet BID. #60/rll 2. Trazodone 100mg 1 tablet HS. #30 3. Enalapril 20mg 1 tablet BID. #60 Using new pharmacy - has to have 30 day RX/rll DOCTOR`S RESPONSE: [email or web address] 09/02/06 at 11:37 am MEDICATIONS: DICLOFENAC SODIUM ORAL TABLET ENTERIC COATED 50 MG, 1 Two Times A Day, 60 Dispensed, 5 Fills, status: CONTINUED, 09/02/2006. ENALAPRIL MALEATE ORAL TABLET 20 MG, 1 Two Times A Day, 60 Dispensed, 5 Fills, 90 Duration/Days Supply, status: CONTINUED, 09/02/2006. TRAZODONE HCL ORAL TABLET 100 MG, 1 Every Day At Bedtime, 30 Dispensed, 5 Fills, 30 Duration/Days Supply, status: CONTINUED, 09/02/2006. FINAL ACTION: lamprl 09/02/06 at 01:25 pm Spoke with patient 09/02/06 at 04:01 pm. message on voice mail at home number/rll Called pharmacy at 09/02/06 at 01:25 pm. message on voice mail/rll Spoke with Estela at [facility] RX/rll Electronically Signed by: Lisa Collins on Saturday, September 02, 2006 documented in this encounter Plan of Treatment Upcoming Encounters Date Type Department Care Team (Late st Contact Info) Description 12/05/2024 1:30 PM CDT Office Visit [facility] [address] [place] [address] Dominick Grigsby MD [address] [place] [address] documented as of this encounter Visit Diagnoses Not on filedocumented in this encounter Care Teams Systems Technologist Relationship Specialty Start Date End Date Dominick Grigsby MD [address] [place] [address] PCP - General 10/11/01 documented as of this encounter
--- OUTSIDE RECORDS SUMMARY | 2024-10-25 13:56 | XMS_ITS | Encounter Summary ---
Author Organization [facility] Address [address] [place] [address] Care Team Providers Care Therapeutic Recreation Leader Name Role Phone Dominick Grigsby MD Primary Care Provider [phone] Encounter Details Date Type Department Care Team (Late st Contact Info) Description 11/19/2006 Outpatient Historical [facility] Internal Medicine [address] [place] [address] Dominick Grigsby MD [address] [place] [address] Social History Tobacco Use Types Packs/Day Years Used Date Smoking Tobacco: Never Assessed Comments Unknown Sex and Gender Information Value Date Recorded Sex Assigned at Not on file 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 Gender Identity Not on file Sexual Orientation Not on file documented as of this encounter Last Filed Vital Signs Vital Sign Reading Time Taken Comments Blood Pressure 134/84 11/19/2006 2:30 PM CDT Pulse 64 11/19/2006 2:30 PM CDT Temperature - - Respiratory Rate - - Oxygen Saturation - - Inhaled Oxygen Concentration - - Weight 82.6 kg (182 lb) 11/19/2006 2:30 PM CDT Height - - Body Mass Index - - documented in this encounter Plan of Treatment Upcoming Encounters Date Type Department Care Team (Late st Contact Info) Description 12/05/2024 1:30 PM CDT Office Visit [facility] Care [facility] [address] [place] [address] Dominick Grigsby MD [address] [place] [address] documented as of this encounter Visit Diagnoses Not on filedocumented in this encounter Care Teams Therapeutic Recreation Leader Relationship Specialty Start Date End Date Dominick Grigsby MD [address] [place] [address] PCP - General 10/11/01 documented as of this encounter
--- OUTSIDE RECORDS SUMMARY | 2024-10-25 13:56 | XMS_ITS | Encounter Summary ---
Author Organization [facility] Address [address] [place] [address] Care Team Providers Care Pipe Joints Supervisor Name Role Phone Dominick Grigsby MD Primary Care Provider Encounter Details Date Type Department Care Team (Late st Contact Info) Description 05/21/2006 Outpatient Historical [facility] Internal Medicine 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 Sex Female 3:52 AM ADOPTION MANAGER Gender Identity Not on file Sexual Orientation Not on file documented as of this encounter Plan of Treatment Upcoming Encounters Date Type Department Care Team (Late st Contact Info) Description 12/05/2024 1:30 PM CDT Office Visit [facility] Primary Care [facility] Blum [address] [place] [address] Dominick Grigsby MD [address] [place] [address] documented as of this encounter Visit Diagnoses Not on filedocumented in this encounter Care Teams Pipe Joints Supervisor Relationship Specialty Start Date End Date Dominick Grigsby MD [address] [facility] [address] [place] [address] PCP - General 10/11/01 documented as of this encounter
--- OUTSIDE RECORDS SUMMARY | 2024-10-25 13:56 | XMS_ITS | Encounter Summary ---
Author Organization [facility] Address [address] [place] [address] Care Team Providers Care Collateral Specialist Name Role Phone Dominick Grigsby MD Primary Care Provider [phone] Encounter Details Date Type Department Care Team (Late st Contact Info) Description 04/01/2007 Orders Only [facility] Internal Medicine 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 WHO CALLED: Pharmacy called. PHARMACY NUMBER: [phone] [facility] SECTION 1: REQUESTED ACTION shawn 04/01/07 at 11:42 am: MEDICATION REQUEST: MEDICATION REQUEST: Patient requests a refill. Enalapril 20mg. She gets a 90 day supply with refills/rll SECTION 2: DOCTOR`S RESPONSE: donald 04/01/07 at 11:52 am DOCTOR`S OTHER RESPONSE: ok refill x 3 SECTION 3: DOCTOR`S RESPONSE: kalyan 04/01/07 at 01:28 pm MEDICATIONS: ENALAPRIL MALEATE ORAL TABLET 20 MG, 1 Two Times A Day, 180 Dispensed, 3 Fills, 90 Duration/Days Supply, status: CONTINUED, 04/01/2007. FINAL ACTION: kalyan 04/01/07 at 01:28 pm Left message on patient`s recorder or with a family member 04/01/2007 at 01:37 pm. lm told her rx called out /ljr Called pharmacy at 04/01/07 at 01:28 pm. Spoke with Jennifer pharmacist /ljr Electronically Signed by: Anyi Lakhani on March documented in this encounter Plan of Treatment Upcoming Encounters Date Type Department Care Team (Late st Contact Info) Description 12/05/2024 1:30 PM CDT Office Visit [facility] [address] [place] [address] Dominick Grigsby MD [address] [place] [address] documented as of this encounter Visit Diagnoses Not on filedocumented in this encounter Care Teams Collateral Specialist Relationship Specialty Start Date End Date Dominick Grigsby MD [address] [facility] [place] [address] PCP - General 10/11/01 documented as of this encounter
--- OUTSIDE RECORDS SUMMARY | 2024-10-25 13:56 | XMS_ITS | Encounter Summary ---
Author Organization [facility] Address [address] [place] [address] Care Team Providers Care Senior Pricing Analyst Name Role Phone Dominick Grigsby MD Primary Care Provider Encounter Details Date Type Department Care Team (Late st Contact Info) Description 04/05/2007 Orders Only [facility] Internal Medicine [address] [place] [address] Dominick Grigsby MD [address] [facility] [address] [place] [address] Social History Tobacco Use Types Packs/Day Years Used Date Smoking Tobacco: Never Assessed Comments Unknown Sex and Gender Information Value Date Recorded Sex Assigned at Not on file 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 WHO CALLED: Patient called. ALTERNATIVE PHONE NUMBER: [phone] PHARMACY NUMBER: [phone] SECTION 1: REQUESTED ACTION shawn 04/05/07 at 10:24 am: MEDICATION REQUEST: MEDICATION REQUEST: Patient requests a refill. Trazodone 100mg 1 tablet HS. #30/rll DOCTOR`S RESPONSE: [email or web address] 04/05/07 at 11:14 am MEDICATIONS: TRAZODONE HCL ORAL TABLET 100 MG, 1 Every Day At Bedtime, 30 Dispensed, 5 Fills, 30 Duration/Days Supply, status: CONTINUED, 04/05/2007. FINAL ACTION: lamprl 04/05/07 at 03:09 pm Spoke with patient 04/05/07 at 03:10 pm. message left at number above/rll Called pharmacy at 04/05/07 at 03:09 pm. message on voice mail/rll Electronically Signed by: Lisa Collins on Thursday, April 05, 2007 Addendum - 04/06/2007 12:01 pm Voice mail from pharmacy - asking for refill. Call to pharmacy - spoke with Sade - states did not get refill on 04/05/07. Called in/rll Electronically Signed by: Lisa Collins on Friday, April 06, 2007 documented in this encounter Plan of Treatment Upcoming Encounters Date Type Department Care Team (Late st Contact Info) Description 12/05/2024 1:30 PM CDT Office Visit [facility] Primary Care [facility] [address] [place] [address] Dominick Grigsby MD [address] [place] [address] documented as of this encounter Visit Diagnoses Not on filedocumented in this encounter Care Teams Senior Pricing Analyst Relationship Specialty Start Date End Date Dominick Grigsby MD [address] [facility] [place] [address] PCP - General 10/11/01 documented as of this encounter
--- OUTSIDE RECORDS SUMMARY | 2024-10-25 13:56 | XMS_ITS | Encounter Summary ---
Author Organization [facility] Address [address] [place] [address] Care Team Providers Care Lead Injection Mold Technician Name Role Phone Dominick Grigsby MD Primary Care Provider [phone] Encounter Details Date Type Department Care Team (Late st Contact Info) Description 05/28/2006 Outpatient Historical [facility] Internal Medicine 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 Gender Identity Not on file Sexual Orientation Not on file documented as of this encounter Plan of Treatment Upcoming Encounters Date Type Department Care Team (Late st Contact Info) Description 12/05/2024 1:30 PM CDT Office Visit [facility] Primary Care OFmark Blum [address] [place] [address] Dominick Grigsby MD [address] [place] [address] documented as of this encounter Visit Diagnoses Not on filedocumented in this encounter Care Teams Lead Injection Mold Technician Relationship Specialty Start Date End Date Dominick Grigsby MD [address] [facility] [address] [place] [address] PCP - General 10/11/01 documented as of this encounter
--- OUTSIDE RECORDS SUMMARY | 2024-10-25 13:56 | XMS_ITS | Encounter Summary ---
Author Organization [facility] Address [address] [place] [address] Care Team Providers Care Congressional Representative Name Role Phone Dominick Grigsby MD Primary Care Provider [phone] Encounter Details Date Type Department Care Team (Late st Contact Info) Description 08/04/2006 Orders Only [facility] Internal Medicine [address] [place] [address] Dominick Grigsby MD [address] [facility] [address] [place] [address] Social History Tobacco Use Types Packs/Day Years Used Date Smoking Tobacco: Never Assessed Comments Unknown Sex and Gender Information Value Date Recorded Sex Assigned at Not on file 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 WHO CALLED: Patient called. ALTERNATIVE PHONE NUMBER: [phone] SECTION 1: REQUESTED ACTION shawn 08/04/06 at 11:00 am: MEDICATION REQUEST: MEDICATION REQUEST: Patient requests a change in current medication. Currently on Prevacid. States has had a change in insurance program and there has been an increase on out of pocket for meds. Patient is asking if there is something generic for the Prevacid that she can try. Also asked about Fosamax - but patient was informed there was nothing generic for this medication/rll DOCTOR`S RESPONSE: [email or web address] 08/04/06 at 11:12 am MEDICATIONS: PREVACID ORAL PACK 30 MG, 1 Every Day, 30 Dispensed, 30 Duration/Days Supply, status: DISCONTINUED HISTORY, 08/04/2006. OMEPRAZOLE ORAL CAPSULE DELAYED RELEASE 20 MG, 1 Every Day, 30 Dispensed, 5 Fills, status: NEW PRESCRIPTION, 08/04/2006. FINAL ACTION: lamprl 08/04/06 at 11:55 am Spoke with patient 08/04/06 at 11:55 am. patient aware - is going to call when needs RX - also willneed 90 day with 3 refills/rll Electronically Signed by: Lisa Collins on Friday, August 04, 2006 documented in this encounter Plan of Treatment Upcoming Encounters Date Type Department Care Team (Late st Contact Info) Description 12/05/2024 1:30 PM CDT Office Visit [facility] Primary Care [facility] Gabby Jim[address] [place] [address] Dominick Grigsby MD [address] [place] [address] documented as of this encounter Visit Diagnoses Not on filedocumented in this encounter Care Teams Congressional Representative Relationship Specialty Start Date End Date Dominick Grigsby MD [address] [place] [address] PCP - General 10/11/01 documented as of this encounter
--- OUTSIDE RECORDS SUMMARY | 2024-10-25 13:56 | XMS_ITS | Encounter Summary ---
Author Organization [facility] Address [address] [place] [address] Care Team Providers Care Oracle Consultant Name Role Phone Dominick Grigsby MD Primary Care Provider [phone] Encounter Details Date Type Department Care Team (Late st Contact Info) Description 01/18/2007 Orders Only [facility] Internal Medicine 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 Gender Identity Not on file Sexual Orientation Not on file documented as of this encounter Plan of Treatment Upcoming Encounters Date Type Department Care Team (Late st Contact Info) Description 12/05/2024 1:30 PM CDT Office Visit [facility] [address] [place] [address] Dominick Grigsby MD [address] [place] [address] documented as of this encounter Visit Diagnoses Not on filedocumented in this encounter Care Teams Oracle Consultant Relationship Specialty Start Date End Date Dominick Grigsby MD [address] [facility] [address] [place] [address] PCP - General 10/11/01 documented as of this encounter
--- OUTSIDE RECORDS SUMMARY | 2024-10-25 13:56 | XMS_ITS | Encounter Summary ---
Author Organization [facility] Address [address] [place] [address] Care Team Providers Care General Inspector Name Role Phone Dominick Grigsby MD Primary Care Provider [phone] Encounter Details Date Type Department Care Team (Late st Contact Info) Description 05/21/2006 Outpatient Historical [facility] Internal Medicine 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 Gender Identity Not on file Sexual Orientation Not on file documented as of this encounter Plan of Treatment Upcoming Encounters Date Type Department Care Team (Late st Contact Info) Description 12/05/2024 1:30 PM CDT Office Visit [facility] Primary Care [facility] [address] [place] [address] Dominick Grigsby MD [address] [place] [address] documented as of this encounter Visit Diagnoses Not on filedocumented in this encounter Care Teams General Inspector Relationship Specialty Start Date End Date Dominick Grigsby MD [address] [facility] [address] [place] [address] PCP - General 10/11/01 documented as of this encounter
[2024-10-25 14:42] LABS: Hematocrit 39.4 % (37.0-47.0); Hemoglobin 13.1 g/dL (12.0-15.0)
[2024-10-25 14:52] LABS: Albumin Level 4.6 g/dL (3.5-5.1); Estimated Glomerular Filt Rate 48; Glucose 105 mg/dL (65-110)
== END 2024-10-25 14:10 | disposition home or self-care (01) ==
PROVIDERS: Visit Provider Orthopaedic Surgery
DX: M17.11 Unilateral primary osteoarthritis, right knee (principal); E78.5 Hyperlipidemia, unspecified
CPT/HCPCS: 36415; 73700; 82040; 82565; 82947; 85014; 85018

== ENCOUNTER 2025-01-25 14:08 | Outpatient (CLI) | payer MEDICARE, SELFPAY ==
--- OUTSIDE RECORDS SUMMARY | 2025-01-25 14:43 | XMS_ITS | Encounter Summary ---
Author Organization [facility] Address 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
--- OUTSIDE RECORDS SUMMARY | 2025-01-25 14:43 | XMS_ITS | Encounter Summary ---
Author Organization [facility] Address [address] [place] [address] Care Team Providers Care Senior Tech Manufacturing Engineering Name Role Phone Dominick Grigsby MD Primary Care Provider Encounter Details Date Type Department Care Team (Late st Contact Info) Description 05/09/2004 Outpatient Historical [facility] Internal Medicine [address] [place] [address] Dominick Grigsby MD [address] [place] [address] Social History Tobacco Use Types Packs/Day Years Used Date Smoking Tobacco: Never Assessed Comments Unknown Sex and Gender Information Value Date Recorded Sex Assigned at Not on file 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
--- OUTSIDE RECORDS SUMMARY | 2025-01-25 14:43 | XMS_ITS | Encounter Summary ---
Author Organization [facility] Address [address] [place] [address] Care Team Providers Care Road Supervisor Of Engines Name Role Phone Dominick Grigsby MD Primary Care Provider [phone] Encounter Details Date Type Department Care Team (Late st Contact Info) Description 05/28/2005 Outpatient Historical [facility] Internal Medicine 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 Gender Identity Not on file Sexual Orientation Not on file documented as of this encounter Last Filed Vital Signs Vital Sign Reading Time Taken Comments Blood Pressure 126/74 05/28/2005 2:45 PM TREASURER Pulse - - Temperature 37.3 C (99.1 F) 05/28/2005 2:45 PM TREASURER Respiratory Rate - - Oxygen Saturation - - Inhaled Oxygen Concentration - - Weight 79.8 kg (176 lb) 05/28/2005 2:45 PM TREASURER Height - - Body Mass Index - - documented in this encounter Plan of Treatment Not on file documented as of this encounter Visit Diagnoses Not on filedocumented in this encounter Care Teams Road Supervisor Of Engines Relationship Specialty Start Date End Date Dominick Grigsby MD [address] [facility] [address] [place] [address] PCP - General 10/11/01 documented as of this encounter
--- OUTSIDE RECORDS SUMMARY | 2025-01-25 14:43 | XMS_ITS | Encounter Summary ---
Author Organization [facility] Address [address] [place] [address] Care Team Providers Care Health Concierge Name Role Phone Dominick Grigsby MD Primary Care Provider Encounter Details Date Type Department Care Team (Late st Contact Info) Description 10/31/2004 Outpatient Historical [facility] Internal Medicine [address] [place] [address] Dominick Grigsby MD [address] [place] [address] Social History Tobacco Use Types Packs/Day Years Used Date Smoking Tobacco: Never Assessed Comments Unknown Sex and Gender Information Value Date Recorded Sex Assigned at Not on file 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
--- OUTSIDE RECORDS SUMMARY | 2025-01-25 14:43 | XMS_ITS | Encounter Summary ---
Author Organization [facility] Address [address] [place] [address] Care Team Providers Care Project Scientist Name Role Phone Dominick Grigsby MD Primary Care Provider [phone] Encounter Details Date Type Department Care Team (Late st Contact Info) Description 05/13/2005 Outpatient Historical [facility] Internal Medicine [address] [place] [address] Dominick Grigsby MD [address] [place] [address] Social History Tobacco Use Types Packs/Day Years Used Date Smoking Tobacco: Never Assessed Comments Unknown Sex and Gender Information Value Date Recorded Sex Assigned at Not on file 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
--- OUTSIDE RECORDS SUMMARY | 2025-01-25 14:43 | XMS_ITS | Encounter Summary ---
Author Organization [employer] [facility] Address [address] [place] [address] Care Team Providers Care Fruit Cutter Name Role Phone Dominick Grigsby MD Primary Care Provider [phone] Encounter Details Date Type Department Care Team (Late st Contact Info) Description 09/17/2005 Outpatient Historical [facility] Internal Medicine 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
--- OUTSIDE RECORDS SUMMARY | 2025-01-25 14:43 | XMS_ITS | Encounter Summary ---
Author Organization [facility] Address [address] [place] [address] Care Team Providers Care Stock Preparation Operator Name Role Phone Dominick Grigsby MD Primary Care Provider Encounter Details Date Type Department Care Team (Late st Contact Info) Description 09/26/2003 Outpatient Historical [facility] Internal Medicine [address] [place] [address] Dominick Grigsby MD [address] [place] [address] Social History Tobacco Use Types Packs/Day Years Used Date Smoking Tobacco: Never Assessed Comments Unknown Sex and Gender Information Value Date Recorded Sex Assigned at Not on file Legal Sex Female 3:52 AM 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
--- OUTSIDE RECORDS SUMMARY | 2025-01-25 14:43 | XMS_ITS | Encounter Summary ---
Author Organization [facility] Address [address] [place] [address] Care Team Providers Care Barn Manager Name Role Phone Dominick Grigsby MD Primary Care Provider Encounter Details Date Type Department Care Team (Late st Contact Info) Description 06/06/2004 Outpatient Historical [facility] Internal Medicine [address] [place] [address] Dominick Grigsby MD [address] [place] [address] Social History Tobacco Use Types Packs/Day Years Used Date Smoking Tobacco: Never Assessed Comments Unknown Sex and Gender Information Value Date Recorded Sex Assigned at Not on file Legal Sex Female 3:52 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
--- OUTSIDE RECORDS SUMMARY | 2025-01-25 14:43 | XMS_ITS | Encounter Summary ---
Author Organization [employer] Address [address] [place] [address] Care Team Providers Care Master Electrician Name Role Phone Dominick Grigsby MD Primary Care Provider [phone] Encounter Details Date Type Department Care Team (Late st Contact Info) Description 05/17/2004 Outpatient Historical [facility] Support [facility]. (Adt Cardiology-[facility]) [address] [place] [address] Cruz Crum Social History Tobacco Use Types Packs/Day Years Used Date Smoking Tobacco: Never Assessed Comments Unknown Sex and Gender Information Value Date Recorded Sex Assigned at Not on file Legal Sex Female 3:52 AM ROUSTABOUT CREW LEADER Gender Identity Not on file Sexual Orientation Not on file documented as of this encounter Plan of Treatment Not on file documented as of this encounter Visit Diagnoses Not on filedocumented in this encounter Care Teams Master Electrician Relationship Specialty Start Date End Date Dominick Grigsby MD [address] [place] [address] [address] [place] [address] PCP - General 10/11/01 documented as of this encounter
--- OUTSIDE RECORDS SUMMARY | 2025-01-25 14:43 | XMS_ITS | Encounter Summary ---
Author Organization [facility] Address [address] [place] [address] Care Team Providers Care Medical Collector Name Role Phone Dominick Grigsby MD Primary Care Provider Encounter Details Date Type Department Care Team (Late st Contact Info) Description 08/01/2004 Outpatient Historical [facility] Internal Medicine [address] [place] [address] Dominick Grigsby MD [address] [place] [address] Social History Tobacco Use Types Packs/Day Years Used Date Smoking Tobacco: Never Assessed Comments Unknown Sex and Gender Information Value Date Recorded Sex Assigned at Not on file Legal Sex Female 3:52 AM ELECTRODYNAMICIST Gender Identity Not on file Sexual Orientation Not on file documented as of this encounter Plan of Treatment Not on file documented as of this encounter Visit Diagnoses Not on filedocumented in this encounter Care Teams Medical Collector Relationship Specialty Start Date End Date Dominick Grigsby MD [address] [place] [address] PCP - General 10/11/01 documented as of this encounter
--- OUTSIDE RECORDS SUMMARY | 2025-01-25 14:43 | XMS_ITS | Encounter Summary ---
Author Organization [facility] Address [address] [place] [address] Care Team Providers Care Psychiatric Social Worker Name Role Phone Dominick Grigsby MD Primary Care Provider Encounter Details Date Type Department Care Team (Late st Contact Info) Description 05/13/2005 Outpatient Historical [facility] Internal Medicine [address] [place] [address] Dominick Grigsby MD [address] [place] [address] Social History Tobacco Use Types Packs/Day Years Used Date Smoking Tobacco: Never Assessed Comments Unknown Sex and Gender Information Value Date Recorded Sex Assigned at Not on file Legal Sex Female 3:52 AM EPIC APPLICATION COORDINATOR Gender Identity Not on file Sexual Orientation Not on file documented as of this encounter Plan of Treatment Not on file documented as of this encounter Visit Diagnoses Not on filedocumented in this encounter Care Teams Psychiatric Social Worker Relationship Specialty Start Date End Date Dominick Grigsby MD [address] [place] [address] PCP - General 10/11/01 documented as of this encounter
--- OUTSIDE RECORDS SUMMARY | 2025-01-25 14:43 | XMS_ITS | Encounter Summary ---
Author Organization [facility] Address [address] [place] [address] Care Team Providers Care Lumite Injector Name Role Phone Dominick Grigsby MD Primary Care Provider [phone] Reason for Visit * Reason Comments Medication Refill Encounter Details Date Type Department Care Team (Late st Contact Info) Description 01/25/2025 Refill [facility] [address] [place] [address] Dominick Grigsby MD [address] [place] [address] Spondylosis of lumbar region without myelopathy or radiculopathy Social History Tobacco Use Types Packs/Day Years Used Date Smoking Tobacco: Never Smokeless Tobacco: Never Alcohol Use Standard Drinks/Week Comments Yes 0.8 (1 standard drink = 0.6 oz p ure alcohol) rarely Comments No Sex and Gender Information Value Date Recorded Sex Assigned at Not on file Legal Sex Female 3:52 AM GREEN COFFEE BLENDER Gender Identity Not on file Sexual Orientation Not on file Occupation Industry Job Start Date Job End Date Not on file Not on file Not on file Not on file documented as of this encounter Miscellaneous Notes * Telephone Encounter - Grace Marquez RN - 01/25/2025 12:25 PM CDT I have verified this refill request with current med list. Last office visit and next office visit are up-to-date. LRF: 11/21/2024 [id number] Recent Visits Date Type Provider Dept 12/05/24 Office Visit Dominick Grigsby MD [facility] Primary Care Luisa Jimenez 12/04/23 Office Visit Dominick Grigsby MD [facility] Primary Care [place] [address] Showing recent visits within past 540 days with a meds authorizing provider and meeting all other requirements Future Appointments No visits were found meeting these conditions. Showing future appointments within next 365 days with a meds authorizing provider and meeting all other requirements * Telephone Encounter - Odilia Hernandez - 01/25/2025 11:58 AM CDT Copied from [facility] #[id number]. Topic: Medication Request >> Jan 25, 2025 11:57 AM Odilia Garcia wrote: Caller Name: Nissa Thao Callback Number: Telephone Information: Medication (Ask patient/caregiver to spell if possible): HYDROcodone- acetaminophen (NORCO) 7.5-325 mg Tablet Note: All medication prescriptions can be requested using one [facility] Preferred Pharmacy: [facility] #[id number] - [address] & [place] [address] [facility] [address] Call Notes: Requesting refill. Did caller contact the correct clinic for prescribing provider? Yes Ask caller if the refill is for a controlled medication. Is this for a controlled Medication? Yes Is there an encounter open? No documented in this encounter Plan of Treatment Not on file documented as of this encounter Visit Diagnoses Diagnosis Spondylosis of lumbar region without myelopathy or radiculopathy Lumbosacral spondylosis without myelopathy documented in this encounter Care Teams Lumite Injector Relationship Specialty Start Date End Date Dominick Grigsby MD [address] [facility] [address] [place] [address] PCP - General 10/11/01 documented as of this encounter
--- OUTSIDE RECORDS SUMMARY | 2025-01-25 14:43 | XMS_ITS | Encounter Summary ---
Author Organization [facility] Address [address] [place] [address] Care Team Providers Care Gas Dispenser Name Role Phone Dominick Grigsby MD Primary Care Provider Encounter Details Date Type Department Care Team (Late st Contact Info) Description 09/07/2003 Outpatient Historical [facility] Internal Medicine [address] [place] [address] Dominick Grigsby MD [address] [place] [address] Social History Tobacco Use Types Packs/Day Years Used Date Smoking Tobacco: Never Assessed Comments Unknown Sex and Gender Information Value Date Recorded Sex Assigned at Not on file Legal Sex Female 3:52 AM MEN'S LEATHER DRESS BELT MAKER Gender Identity Not on file Sexual Orientation Not on file documented as of this encounter Plan of Treatment Not on file documented as of this encounter Visit Diagnoses Not on filedocumented in this encounter Care Teams Gas Dispenser Relationship Specialty Start Date End Date Dominick Grigsby MD [address] [place] [address] PCP - General 10/11/01 documented as of this encounter
--- OUTSIDE RECORDS SUMMARY | 2025-01-25 14:43 | XMS_ITS | Encounter Summary ---
Author Organization [facility] Address [address] [place] [address] Care Team Providers Care State Farm Agent Name Role Phone Dominick Grigsby MD Primary Care Provider Encounter Details Date Type Department Care Team (Late st Contact Info) Description 08/29/2004 Outpatient Historical [facility] Internal Medicine [address] [place] [address] Dominick Grigsby MD [address] [place] [address] Social History Tobacco Use Types Packs/Day Years Used Date Smoking Tobacco: Never Assessed Comments Unknown Sex and Gender Information Value Date Recorded Sex Assigned at Not on file Legal Sex Female 3:52 AM PRODUCTION PLANNER Gender Identity Not on file Sexual Orientation Not on file documented as of this encounter Plan of Treatment Not on file documented as of this encounter Visit Diagnoses Not on filedocumented in this encounter Care Teams State Farm Agent Relationship Specialty Start Date End Date Dominick Grigsby MD [address] [place] [address] PCP - General 10/11/01 documented as of this encounter
--- OUTSIDE RECORDS SUMMARY | 2025-01-25 14:43 | XMS_ITS | Clinical Summary ---
Author Organization [facility] Address [address] [place] [address] Care Team Providers Care Manager Occupational Name Role Phone Unavailable Primary Care Provider Unavailabl e Source Comments [facility],non-owned Affiliates and Associated Physician Practices is amultiple site organization consisting of ambulatory clinics and hospital sitesin [place], [place] and [place]. This disclosure is being madepursuant to the Care Everywhere program and may not contain all information available regarding this patient. Last updated 18.[facility] [employer] Social History Tobacco Use Types Packs/Day Years Used Date Smoking Tobacco: Never Assessed Comments Unknown Sex and Gender Information Value Date Recorded Sex Assigned at Not on file Legal Sex Female 5:51 AM BIOFUELS PLANT OPERATIONS ENGINEER Gender Identity Not on file Sexual [...] - 1-dose 75+ series) 2023 COVID-19 VACCINE (1 - 2023-2 5 season) 2024 DEPRESSION SCREENING 06/08/2024 INFLUENZA VACCINE (#1) 2025 HEPATITIS B VACCINE Aged Out No [...] patient's age to complete this topic Insurance [facility] MANAGED MEDICARE ADV MEDICARE
--- OUTSIDE RECORDS SUMMARY | 2025-01-25 14:43 | XMS_ITS | Encounter Summary ---
Author Organization [facility] Address [address] [place] [address] Care Team Providers Care Ironing Pleater Name Role Phone Dominick Grigsby MD Primary Care Provider [phone] Encounter Details Date Type Department Care Team (Late st Contact Info) Description 09/26/2005 Outpatient Historical [facility] Internal Medicine [address] [place] [address] Dominick Grigsby MD [address] [facility] [address] [place] [address] Social History Tobacco Use Types Packs/Day Years Used Date Smoking Tobacco: Never Assessed Comments Unknown Sex and Gender Information Value Date Recorded Sex Assigned at Not on file Legal Sex Female 3:52 AM CITY COLLECTOR Gender Identity Not on file Sexual Orientation [...] on filedocumented in this encounter Care Teams Ironing Pleater Relationship Specialty Start Date End Date Dominick Grigsby MD [address] [phone] PCP - General 10/11/01 documented as of this encounter
--- OUTSIDE RECORDS SUMMARY | 2025-01-25 14:44 | XMS_ITS | Encounter Summary ---
Author Organization [facility] Address [address] [place] [address] Care Team Providers Care Gas Turbine Powerplant Mechanic Name Role Phone Dominick Grigsby MD Primary Care Provider Encounter Details Date Type Department Care Team (Late st Contact Info) Description 01/18/2007 [facility] [address] [place] [address] Dominick Grigsby MD [address] [place] [address] Social History Tobacco Use Types Packs/Day Years Used Date Smoking Tobacco: Never Assessed Comments Unknown Sex and Gender Information Value Date Recorded Sex Assigned at Not on file Legal Sex Female 3:52 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
--- OUTSIDE RECORDS SUMMARY | 2025-01-25 14:44 | XMS_ITS | Encounter Summary ---
Author Organization [employer] Address [address] [place] [address] Care Team Providers Care Records Section Supervisor Name Role Phone Dominick Grigsby MD Primary Care Provider [phone] Encounter Details Date Type Department Care Team (Latest Contact Info) Description 11/06/2005 Outpatient Historical [facility] Dominick Grigsby MD [address] [place] [address] Unspecified Osteoporosis (Primary Dx) Social History Tobacco Use Types Packs/Day Years Used Date Smoking Tobacco: Never Assessed Comments Unknown Sex and Gender Information Value Date Recorded Sex Assigned at Not on file Legal Sex Female 3:52 AM ERGONOMICS CONSULTANT Gender Identity Not on file Sexual Orientation Not on file documented as of this encounter Plan of Treatment Not on file documented as of this encounter Visit Diagnoses Diagnosis Osteoporosis, unspecified- Primary documented in this encounter Care Teams Records Section Supervisor Relationship Specialty Start Date End Date Dominick Grigsby MD [address] [place] [address] PCP - General 10/11/01 documented as of this encounter
--- OUTSIDE RECORDS SUMMARY | 2025-01-25 14:44 | XMS_ITS | Encounter Summary ---
Author Organization [facility] Address [address] [place] [address] Care Team Providers Care Lure Maker Name Role Phone Dominick Grigsby MD Primary Care Provider [phone] Encounter Details Date Type Department Care Team (Late st Contact Info) Description 01/12/2006 Orders Only [facility] Internal Medicine [address] [place] [address] Dominick Grigsby MD [address] [facility] [address] [place] [address] Social History Tobacco Use Types Packs/Day Years Used Date Smoking Tobacco: Never Assessed Comments Unknown Sex and Gender Information Value Date Recorded Sex Assigned at Not on file Legal Sex Female 3:52 AM FOOD BEVERAGE SERVER Gender Identity Not on file Sexual Orientation Not on file documented as of this encounter Progress Notes * Dominick Grigsby MD - 03/16/2008 10:05 PM CDT TIME:09:59 am PATIENT`S HOME PHONE: PATIENT`S WORK PHONE: PATIENT`S INSURANCE: [facility] WHO TOOK THE CALL: Lisa Collins L GENERAL INFORMATION PATIENT STATUS: Established Patient. WHO CALLED: Patient called. ALTERNATIVE PHONE NUMBER: [phone] PHARMACY NUMBER: [phone] [facility] SECTION 1: REQUESTED ACTION shawn 01/12/06 at 09:59 am: MEDICATION REQUEST: MEDICATION REQUEST: Patient requests a refill. Diclofenac Na 50mg 1 tablet BID #180/rll DOCTOR`S RESPONSE: [email or web address] 01/12/06 at 10:06 am MEDICATIONS: DICLOFENAC SODIUM ORAL TABLET ENTERIC COATED 50 MG, 1 Two Times A Day, 180 Dispensed, 3 Fills, status: CONTINUED, 01/12/2006. FINAL ACTION: constantinerlinda 01/12/06 at 12:16 pm Spoke with patient 01/12/06 at 12:20 pm. patient aware/rll Called pharmacy at 01/12/06 at 12:17 pm. spoke with Jacquelin/rll Electronically Signed by: Lisa Collins on Thursday, January 12, 2006 documented in this encounter Plan of Treatment Not on file documented as of this encounter Visit Diagnoses Not on filedocumented in this encounter Care Teams Lure Maker Relationship Specialty Start Date End Date Dominick Grigsby MD 300 [facility] [address] [place] [address] PCP - General 10/11/01 documented as of this encounter
--- OUTSIDE RECORDS SUMMARY | 2025-01-25 14:44 | XMS_ITS | Clinical Summary ---
Author Organization [facility] [address] Address [address] [place] [address] Care Team Providers Care Management Analyst Name Role Phone Dominick Grigsby MD Primary Care Provider Allergies No known active allergies Social History Tobacco Use Types Packs/Day Years Used Date Smoking Tobacco: Never Assessed Personal Safety Answer Date Recorded Getting School Help Needed Not on file 05/18 Comments Unknown Sex and Gender Information Value Date Recorded Sex Assigned at Not on file Legal Sex Female 12:53 PM PUBLIC HEALTH TECHNOLOGIST Gender Identity Not on file Sexual Orientation Not on file Plan of Treatment Health Maintenance Due Date Last Done Comments Depression Screening 1948 Fall Risk Assessment 1950 Hepatitis C Screening 1950 Osteoporosis Screening-Bone Density Scan 1948 Hepatitis B Screening 1966 Well Visit 65+ 2013 Covid-19 Vaccine (2023-2 5 season) 2024 03/14/2022, 09/24/2021, 04/04/2021, Additional history exists Influenza Vaccine (#1) 2025 2, 03/08/2021, 02/07/2021, Additional history exists DTaP/Tdap/Td Vaccine (4 - Td or Tdap) 06/26/2027 06/26/2017, 12/10/2009, 05/28/2006, Additional history exists Pneumococcal vaccine 65+ Completed 016, 11/10/2014, 05/29/2009 Zoster Vaccine Completed 02/05/2018, 07/0 02/2018, 09/28/2017 [place] [address] Care Teams Management Analyst Relationship Specialty Start Date End Date Dominick Grigsby MD PCP - General Internal Medicine 10/21/22
--- OUTSIDE RECORDS SUMMARY | 2025-01-25 14:44 | XMS_ITS | Encounter Summary ---
Author Organization [facility] Address [address] [place] [address] Care Team Providers Care Economic Adviser Name Role Phone Dominick rGigsby MD Primary Care Provider [phone] Encounter Details Date Type Department Care Team (Latest Contact Info) Description 09/11/1999 Outpatient Historical [facility] René Araiza Disturbance of skin sensation (Primary Dx) Social History Tobacco Use Types Packs/Day Years Used Date Smoking Tobacco: Never Assessed Comments Unknown Sex and Gender Information Value Date Recorded Sex Assigned at Not on file Legal Sex Female 3:52 AM SKIN PEELING MACHINE OPERATOR Gender Identity Not on file Sexual Orientation Not on file documented as of this encounter Plan of Treatment Not on file documented as of this encounter Visit Diagnoses Diagnosis Disturbance of skin sensation- Primary documented in this encounter Care Teams Economic Adviser Relationship Specialty Start Date End Date Domincik Grigsby MD [address] [place] [address] [address] [place] [address] PCP - General 10/11/01 documented as of this encounter
--- OUTSIDE RECORDS SUMMARY | 2025-01-25 14:44 | XMS_ITS | Encounter Summary ---
Author Organization [facility] Address [address] [place] [address] Care Team Providers Care Employee Relations Representative Name Role Phone Dominick Grigsby MD Primary Care Provider [phone] Encounter Details Date Type Department Care Team (Late st Contact Info) Description 12/18/2005 Orders Only [facility] Internal Medicine [address] [place] [address] Dominick Grigsby MD [address] [facility] [address] [place] [address] Social History Tobacco Use Types Packs/Day Years Used Date Smoking Tobacco: Never Assessed Comments Unknown Sex and Gender Information Value Date Recorded Sex Assigned at Not on file Legal Sex Female 3:52 AM RN CAMP Gender Identity Not on file Sexual Orientation Not on file documented as of this encounter Progress Notes * Dominick Grigsby MD - 03/17/2008 11:01 AM CDT TIME:10:05 am PATIENT`S HOME PHONE: PATIENT`S WORK PHONE: PATIENT`S INSURANCE: [facility] [employer] [facility] WHO TOOK THE CALL: Lisa Collins L GENERAL INFORMATION PATIENT STATUS: Established Patient. ALTERNATIVE PHONE NUMBER: [phone] WHO CALLED: Patient called. PHARMACY NUMBER: [facility]: [phone] SECTION 1: REQUESTED ACTION lamprl 12/18/05 at 10:05 am: MEDICATION REQUEST: Patient requests a refill. Fosamax 70mg 1 tablet weekly. #12/rll DOCTOR`S RESPONSE: [email or web address] 12/18/05 at 01:36 pm MEDICATIONS: Call in [...] with 3 refills./rll Electronically Signed by: Lisa Colilns on December documented in this encounter Plan of Treatment Not on file documented as of this encounter Visit Diagnoses Not on filedocumented in this encounter Care Teams Employee Relations Representative Relationship Specialty Start Date End Date Dominick Grigsby MD 300 [facility] [address] [place] [address] PCP - General 10/11/01 documented as of this encounter
--- OUTSIDE RECORDS SUMMARY | 2025-01-25 14:44 | XMS_ITS | Encounter Summary ---
Author Organization [facility] Address [address] [place] [address] Care Team Providers Care Dry Room Attendant Name Role Phone Dominick Grigsby MD Primary Care Provider [phone] Reason for Visit * Reason Comments Medication Refill Encounter Details Date Type Department Care Team (Late st Contact Info) Description 06/25/2018 Refill [facility] [address] [facility] [address] [place] [address] Dominick Grigsby MD [address] [place] [address] [address] [place] [address] Social History Tobacco Use Types Packs/Day Years Used Date Smoking Tobacco: Never Smokeless Tobacco: Never Alcohol Use Standard Drinks/Week Comments Yes 0.8 (1 standard drink = 0.6 oz p ure alcohol) rarely Comments No Sex and Gender Information Value Date Recorded Sex Assigned at Not on file Legal Sex Female 3:52 AM REAL ESTATE 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 Gender Identity Not on file Sexual Orientation Not on file Occupation Industry Job Start Date Job End Date Not on file Not on file Not on file Not on file documented as of this encounter Miscellaneous Notes * Telephone Encounter - Santos, Koki Almonte - 06/25/2018 7:04 AM CST Last ov - 11/24/2017 Last refill-06/10/2018 ESTATE PROCESSOR documented in this encounter Plan of Treatment Not on file documented as of this encounter Visit Diagnoses Not on filedocumented in this encounter Care Teams Dry Room Attendant Relationship Specialty Start Date End Date Dominick Grigsby MD [address] [place] [address] PCP - General 10/11/01 documented as of this encounter
--- OUTSIDE RECORDS SUMMARY | 2025-01-25 14:44 | XMS_ITS | Encounter Summary ---
Author Organization [facility] Address [address] [place] [address] Care Team Providers Care Retail Cashier Associate Name Role Phone Dominick Grigsby MD Primary Care Provider [phone] Encounter Details Date Type Department Care Team (Late st Contact Info) Description 11/19/2006 Outpatient Historical [facility] Internal Medicine 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
--- OUTSIDE RECORDS SUMMARY | 2025-01-25 14:44 | XMS_ITS | Encounter Summary ---
Author Organization [facility] Address [address] [place] [address] Care Team Providers Care Instructor Kindergarten Name Role Phone Dominick Grigsby MD Primary Care Provider Encounter Details Date Type Department Care Team (Late st Contact Info) Description 05/02/2003 Outpatient Historical [facility] Internal Medicine [address] [place] [address] Dominick Grigsby MD [address] [place] [address] Social History Tobacco Use Types Packs/Day Years Used Date Smoking Tobacco: Never Assessed Comments Unknown Sex and Gender Information Value Date Recorded Sex Assigned at Not on file 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
--- OUTSIDE RECORDS SUMMARY | 2025-01-25 14:44 | XMS_ITS | Encounter Summary ---
Author Organization [facility] Address [address] [place] [address] Care Team Providers Care Top And Trim Worker Name Role Phone Dominick Grigsby MD Primary Care Provider [phone] Encounter Details Date Type Department Care Team (Late st Contact Info) Description 10/08/2005 Orders Only [facility] Internal Medicine 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 ALTERNATIVE PHONE NUMBER: [phone] WHO CALLED: Patient called. PHARMACY NUMBER: [facility]: [phone] SECTION 1: REQUESTED ACTION lamprlinda 10/08/05 at 09:43 am: MEDICATION REQUEST: Patient requests a refill. Trazodone 100mg 1 tablet at HS. #90/rll DOCTOR`S RESPONSE: [email or web address] 10/08/05 at 01:07 pm MEDICATIONS: Call in to Pharmacy TRAZODONE HCL ORAL TABLET 100 MG, 1 Every Day At Bedtime, 90 Dispensed, 3 Fills, 30 Duration/Days Supply, status: NEW PRESCRIPTION, 10/08/2005. FINAL ACTION: lamprl 10/08/05 at 01:22 pm Spoke with patient 10/08/05 at 01:22 pm. patient aware/rll Called pharmacy at 10/08/05 at 01:22 pm. spoke with Pasquale/rll Electronically Signed by: Lisa Collins on Saturday, October 08, 2005 documented in this encounter Plan of Treatment Not on file documented as of this encounter Visit Diagnoses Not on filedocumented in this encounter Care Teams Top And Trim Worker Relationship Specialty Start Date End Date Dominick Grigsby MD [address] [place] [address] PCP - General 10/11/01 documented as of this encounter
--- OUTSIDE RECORDS SUMMARY | 2025-01-25 14:44 | XMS_ITS | Encounter Summary ---
Author Organization [facility] Address [address] [place] [address] Care Team Providers Care Carbon Capture Power Plant Operator Name Role Phone Dominick Grigsby MD Primary Care Provider [phone] Encounter Details Date Type Department Care Team (Late st Contact Info) Description 03/19/2006 Orders Only [facility] Internal Medicine 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 WHO CALLED: Patient called. ALTERNATIVE PHONE NUMBER: [phone] PHARMACY NUMBER: [facility]: [phone] SECTION 1: REQUESTED ACTION [email or web address] 03/19/06 at 09:52 am: MEDICATION REQUEST: MEDICATION REQUEST: Patient requests a refill. HCTZ 25mg 1 tablet daily. #90/rll DOCTOR`S RESPONSE: [email or web address] 03/19/06 at 10:26 am MEDICATIONS: HYDROCHLOROTHIAZIDE ORAL TABLET 25 MG, 1 Every Day, 90 Dispensed, 3 Fills, status: CONTINUED, 03/19/2006. FINAL ACTION: lamprl 03/19/06 at 10:34 am Called pharmacy at 03/19/06 at 10:34 am. spoke with Foreign/danelle Electronically Signed by: Lisa Collins on March documented in this encounter Plan of Treatment Not on file documented as of this encounter Visit Diagnoses Not on filedocumented in this encounter Care Teams Carbon Capture Power Plant Operator Relationship Specialty Start Date End Date Dominick Grigsby MD 300 [facility] [address] [place] [address] PCP - General 10/11/01 documented as of this encounter
--- OUTSIDE RECORDS SUMMARY | 2025-01-25 14:44 | XMS_ITS | Encounter Summary ---
Author Organization [facility] Address [address] [place] [address] Care Team Providers Care Key Account Manager Name Role Phone Dominick Grigsby MD Primary Care Provider [phone] Encounter Details Date Type Department Care Team (Late st Contact Info) Description 04/01/2007 Orders Only [facility] Internal Medicine [address] [place] [address] Armin Fragoso MD NO ADDRESS ON FILE Social History Tobacco Use Types Packs/Day Years Used Date Smoking Tobacco: Never Assessed Comments Unknown Sex and Gender Information Value Date Recorded Sex Assigned at Not on file Legal Sex Female 3:52 AM BASE PLY HAND Gender Identity Not on file Sexual Orientation Not on file documented as of this encounter Progress Notes * Armin Fragoso MD - 10/22/2007 1:48 PM CDT TIME:11:41 am PATIENT`S HOME PHONE: PATIENT`S WORK PHONE: PATIENT`S INSURANCE: TIFFANY WHO TOOK THE CALL: Lisa Collins L GENERAL INFORMATION PATIENT STATUS: Established Patient. WHO CALLED: Pharmacy called. PHARMACY NUMBER: [phone] [facility] SECTION 1: REQUESTED ACTION shawn [...] on filedocumented in this encounter Care Teams Key Account Manager Relationship Specialty Start Date End Date Dominick Grigsby MD [address] [facility] [address] [facility] [address] PCP - General 10/11/01 documented as of this encounter
--- OUTSIDE RECORDS SUMMARY | 2025-01-25 14:44 | XMS_ITS | Encounter Summary ---
Author Organization [facility] Address [address] [place] [address] Care Team Providers Care Fiberglass Ski Maker Name Role Phone Dominick Grigsby MD Primary Care Provider [phone] Encounter Details Date Type Department Care Team (Late st Contact Info) Description 10/31/2005 Outpatient Historical [facility] Internal Medicine 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
--- OUTSIDE RECORDS SUMMARY | 2025-01-25 14:44 | XMS_ITS | Encounter Summary ---
Author Organization [facility] Address 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
--- OUTSIDE RECORDS SUMMARY | 2025-01-25 14:44 | XMS_ITS | Encounter Summary ---
Author Organization [facility] Address 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
--- OUTSIDE RECORDS SUMMARY | 2025-01-25 14:44 | XMS_ITS | Encounter Summary ---
Author Organization [facility] Address [address] [place] [address] Care Team Providers Care Energy Project Engineer Name Role Phone Dominick Grigsby MD Primary Care Provider [phone] Encounter Details Date Type Department Care Team (Late st Contact Info) Description 05/08/2003 Outpatient Historical [facility] Internal Medicine [address] [place] [address] Dominick Grigsby MD [address] [place] [address] Social History Tobacco Use Types Packs/Day Years Used Date Smoking Tobacco: Never Assessed Comments Unknown Sex and Gender Information Value Date Recorded Sex Assigned at Not on file Legal Sex Female 3:52 AM ARCHITECTURAL ENGINEER Gender Identity Not on file Sexual Orientation Not on file documented as of this encounter Plan of Treatment Not on file documented as of this encounter Visit Diagnoses Not on filedocumented in this encounter Care Teams Energy Project Engineer Relationship Specialty Start Date End Date Dominick Grigsby MD [address] [place] [address] PCP - General 10/11/01 documented as of this encounter
--- OUTSIDE RECORDS SUMMARY | 2025-01-25 14:44 | XMS_ITS | Encounter Summary ---
Author Organization [facility] Address [address] [place] [address] Care Team Providers Care Corporate Compliance Director Name Role Phone Dominick Grigsby MD Primary Care Provider [phone] Encounter Details Date Type Department Care Team (Late st Contact Info) Description 08/31/2007 Orders Only [facility] Internal Medicine [address] [place] [address] Dominick Grigsby MD [address] [facility] [address] [place] [address] Social History Tobacco Use Types Packs/Day Years Used Date Smoking Tobacco: Never Assessed Comments Unknown Sex and Gender Information Value Date Recorded Sex Assigned at Not on file Legal Sex Female 3:52 AM REHAB MANAGER Gender Identity Not on file Sexual Orientation Not on file documented as of this encounter Progress Notes * Dominick Grigsby MD - 11/11/2007 7:54 PM CDT TIME:11:23 am PATIENT`S HOME PHONE: PATIENT`S WORK PHONE: PATIENT`S INSURANCE: TIFFANY WHO TOOK THE CALL: Hortencia Ty P GENERAL INFORMATION ALTERNATIVE PHONE NUMBER: [phone] WHO CALLED: Patient called. PHARMACY NUMBER: OTHER INFORMATION: Pt wants 90 day supply of omeprazole 20mg has appt 11/13 for Susana/ SECTION 1: DOCTOR`S RESPONSE: anyi 08/31/07 at 12:10 pm MEDICATIONS: Call in to Pharmacy OMEPRAZOLE ORAL CAPSULE DELAYED RELEASE 20 MG CAPSULE, 1 Every Day, 90 Dispensed, 3 Fills, 90 Duration/Days Supply, status: CONTINUED, 08/31/2007. FINAL ACTION: angelika 08/31/07 at 01:53 pm Spoke with patient 08/31/07 at 01:53 pm. Called pharmacy at 08/31/07 at 01:53 pm. /mh Electronically Signed by: Hortencia Ty on Friday, August 31, 2007 documented in this encounter Plan of Treatment Not on file documented as of this encounter Visit Diagnoses Not on filedocumented in this encounter Care Teams Corporate Compliance Director Relationship Specialty Start Date End Date Dominick Grigsby MD [address] [facility] [address] [place] [address] PCP - General 10/11/01 documented as of this encounter
--- OUTSIDE RECORDS SUMMARY | 2025-01-25 14:44 | XMS_ITS | Encounter Summary ---
Author Organization [facility] Address 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
--- OUTSIDE RECORDS SUMMARY | 2025-01-25 14:44 | XMS_ITS | Encounter Summary ---
Author Organization [facility] Address [address] [place] [address] Care Team Providers Care Lead Teacher Name Role Phone Dominick Grigsby MD Primary Care Provider [phone] Encounter Details Date Type Department Care Team (Late st Contact Info) Description 03/17/2007 [facility] 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
--- OUTSIDE RECORDS SUMMARY | 2025-01-25 14:44 | XMS_ITS | Encounter Summary ---
Author Organization [facility] Address [address] [place] [address] Care Team Providers Care Electric Range Servicer Name Role Phone Dominick Grigsby MD Primary Care Provider [phone] Encounter Details Date Type Department Care Team (Late st Contact Info) Description 04/05/2007 Orders Only [facility] Internal Medicine 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 WHO CALLED: Patient called. ALTERNATIVE PHONE NUMBER: [phone] PHARMACY NUMBER: [phone] SECTION 1: REQUESTED ACTION [facility] 04/05/07 at 10:24 am: MEDICATION REQUEST: MEDICATION REQUEST: Patient requests a refill. Trazodone 100mg 1 tablet HS. #30/rll DOCTOR`S RESPONSE: [email or web address] 04/05/07 at 11:14 am MEDICATIONS: TRAZODONE HCL [...] filedocumented in this encounter Care Teams Electric Range Servicer Relationship Specialty Start Date End Date Dominick Grigsby MD [address] [address] PCP - General 10/11/01 documented as of this encounter
--- OUTSIDE RECORDS SUMMARY | 2025-01-25 14:44 | XMS_ITS | Encounter Summary ---
Author Organization [facility] Address [address] [place] [address] Care Team Providers Care Water Filter Cleaner Name Role Phone Dominick Grigsby MD Primary Care Provider [phone] Encounter Details Date Type Department Care Team (Late st Contact Info) Description 01/27/2007 [facility] [place] [facility] [address] [place] [address] Dominick Grigsby MD [address] [place] [address] Social History Tobacco Use Types Packs/Day Years Used Date Smoking Tobacco: Never Assessed Comments Unknown Sex and Gender Information Value Date Recorded Sex Assigned at Not on file Legal Sex Female 3:52 AM LAWN CARE SPECIALIST Gender Identity Not on file Sexual Orientation Not on file documented as of this encounter Plan of Treatment Not on file documented as of this encounter Visit Diagnoses Not on filedocumented in this encounter Care Teams Water Filter Cleaner Relationship Specialty Start Date End Date Dominick Grigsby MD [address] [place] [address] PCP - General 10/11/01 documented as of this encounter
--- OUTSIDE RECORDS SUMMARY | 2025-01-25 14:44 | XMS_ITS | Encounter Summary ---
Author Organization [facility] Address [address] [place] [address] Care Team Providers Care Bell Clerk Name Role Phone Dominick Grigsby MD Primary Care Provider [phone] Encounter Details Date Type Department Care Team (Late st Contact Info) Description 09/02/2006 Orders Only [facility] Internal Medicine 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 WHO CALLED: Patient called. ALTERNATIVE PHONE NUMBER: [phone] PHARMACY NUMBER: [phone] [facility]CTION [facility] at 11:24 am: MEDICATION REQUEST: MEDICATION REQUEST: Patient requests a refill. 1. Diclofenac 50mg 1 tablet BID. #60/rll 2. Trazodone 100mg 1 tablet HS. #30 3. Enalapril 20mg 1 tablet BID. #60 Using new pharmacy - has to have 30 day RX/rll DOCTOR`S RESPONSE: anyi 09/02/06 at 11:37 am MEDICATIONS: DICLOFENAC SODIUM [...] on voice mail/rll Spoke with Estela at [facility] RX/rll Electronically Signed by: Lisa Collins on Saturday, September 02, 2006 documented in this encounter Plan of Treatment Not on file documented as of this encounter Visit Diagnoses Not on filedocumented in this encounter Care Teams Bell Clerk Relationship Specialty Start Date End Date Dominick Grigsby MD 300 [facility] [address] [place] [address] PCP - General 10/11/01 documented as of this encounter
--- OUTSIDE RECORDS SUMMARY | 2025-01-25 14:44 | XMS_ITS | Encounter Summary ---
Author Organization [facility] Address [address] [place] [address] Care Team Providers Care Equestrian Trainer Name Role Phone Dominick Grigsby MD Primary Care Provider Encounter Details Date Type Department Care Team (Late st Contact Info) Description 11/01/2002 Outpatient Historical [facility] Internal Medicine [address] [place] [address] Dominick Grigsby MD [address] [place] [address] Social History Tobacco Use Types Packs/Day Years Used Date Smoking Tobacco: Never Assessed Comments Unknown Sex and Gender Information Value Date Recorded Sex Assigned at Not on file Legal Sex Female 3:52 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
--- OUTSIDE RECORDS SUMMARY | 2025-01-25 14:44 | XMS_ITS | Encounter Summary ---
Author Organization [facility] Address [address] [place] [address] Care Team Providers Care Grade Foreman Name Role Phone Dominick Grigsby MD Primary Care Provider [phone] Encounter Details Date Type Department Care Team (Latest Contact Info) Description 05/01/1999 Outpatient Historical [facility] Reynold Martinez MD Pain in joint, forearm (Primary Dx) Social History Tobacco Use Types Packs/Day Years Used Date Smoking Tobacco: Never Assessed Comments Unknown Sex and Gender Information Value Date Recorded Sex Assigned at Not on file Legal Sex Female 3:52 AM CORRECTION OFFICER Gender Identity Not on file Sexual Orientation Not on file documented as of this encounter Plan of Treatment Not on file documented as of this encounter Visit Diagnoses Diagnosis Pain in joint, forearm- Primary documented in this encounter Care Teams Grade Foreman Relationship Specialty Start Date End Date Dominick Grigsby MD [address] [place] [address] [address] [place] [address] PCP - General 10/11/01 documented as of this encounter
--- OUTSIDE RECORDS SUMMARY | 2025-01-25 14:44 | XMS_ITS | Encounter Summary ---
Author Organization [facility] Address [address] [place] [address] Care Team Providers Care Market Superintendent Name Role Phone Dominick Grigsby MD Primary Care Provider [phone] Encounter Details Date Type Department Care Team (Late st Contact Info) Description 05/26/2007 Outpatient Historical [facility] Internal Medicine 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 Gender Identity Not on file Sexual Orientation Not on file documented as of this encounter Last Filed Vital Signs Vital Sign Reading Time Taken Comments Blood Pressure 122/80 05/26/2007 2:00 PM WEIGHTS AND MEASURES SEALER Pulse 65 05/26/2007 2:00 PM WEIGHTS AND MEASURES SEALER Temperature - - Respiratory Rate - - Oxygen Saturation - - Inhaled Oxygen Concentration - - Weight 70.8 kg (156 lb) 05/26/2007 2:00 PM WEIGHTS AND MEASURES SEALER Height 171.5 cm (5' 7.5) 05/26/2007 2:00 PM WEIGHTS AND MEASURES SEALER Body Mass Index 24.07 05/26/2007 2:00 PM WEIGHTS AND MEASURES SEALER documented in this encounter Plan of Treatment Not on file documented as of this encounter Visit Diagnoses Not on filedocumented in this encounter Care Teams Market Superintendent Relationship Specialty Start Date End Date Dominick Grigsby MD 300 [facility] [address] [place] [address] PCP - General 10/11/01 documented as of this encounter
--- OUTSIDE RECORDS SUMMARY | 2025-01-25 14:44 | XMS_ITS | Clinical Summary ---
Author Organization [facility] Address [address] [place] [address] Care Team Providers Care Liquid Hydrogen Plant Operator Name Role Phone Dominick Grigsby MD Primary Care Provider [phone] Allergies Active Allergy Reactions Criticality Noted Date Comments Gemfibrozil Other (See Comments) 07/05/2013 Joint pain Penicillins Rash Low 03/27/2014 Medications FA/MV,CA,FE,MIN/LY COPENE/LUT (MULTIVITAL ORAL) Take by mouth. Active Willis-3 Fatty Acids 1,000 mg Oral Cap Take 2,000 mg by mouth 2 times daily. Active celecoxib (CeleBREX) 100 mg capsule Take 200 mg by mouth. Active traZODone (DESYREL) 100 mg tablet TAKE 1 TABLET BY MOUTH DAILY AT BEDTIME 90 Tablet 3 03/30/20 24 Active escitalopram oxalate (LEXAPRO) 20 mg tabletIndications: Stress at home take 1 tablet by mouth daily 90 Tablet 3 03/30/20 24 Active amLODIPine (NORVASC) 10 mg tabletIndications: Essential hypertension, benign Take 1 Tablet (10 mg) by mouth daily. 100 Tablet 2 05/02/20 24 Active losartan (COZAAR) 100 mg tabletIndications: Essential hypertension, benign Take 1 Tablet (100 mg) by mouth daily. 100 Tablet 10/05/19 25 Active hydroCHLOROthiazid e (MICROZIDE) 12.5 mg capsuleIndications :Essential hypertension, benign Take 1 Capsule (12.5 mg) by mouth daily. 100 Capsule 10/05/19 25 Active Restasis 0.05 % emulsion Administer 1 Drop in both eyes 2 times daily. 11/04/19 25 Active omeprazole (PriLOSEC) 20 mg Capsule, Delayed Release(E.C.) Take 1 Capsule (20 mg) by mouth 2 times daily. 200 Capsule 3 12/06/19 25 Active rosuvastatin (CRESTOR) 10 mg tabletIndications: Mixed hyperlipidemia TAKE 1 TABLET BY MOUTH DAILY 100 Tablet 12/20/19 25 Active HYDROcodone-acetam inophen (NORCO) 7.5-325 mg TabletIndications: Spondylosis of lumbar region without myelopathy or radiculopathy Take 1 Tablet by mouth every 4 hours as needed for Pain, Moderate. Max Daily Amount: 6 Tablets 60 Tablet 01/26/20 25 Active HYDROcodone-acetam inophen (NORCO) 7.5-325 mg TabletIndications: Spondylosis of lumbar region without myelopathy or radiculopathy Take 1 Tablet by mouth every 4 hours as needed for Pain, Moderate. Max Daily Amount: 6 Tablets 60 Tablet 11/22/19 25 025 Discontin ued(Reord er) Active Problems Problem Noted Date Diagnosed Date [...] Need for prophylactic vaccin ation with combined goyvapjrcg-zvbvgrb-qefavbmrf (DTP) vaccine 05/28/2006 12/01/2007 Routine gynecological examination 05/21/2006 12/01/2007 Unspecified sinusitis (chronic) 10/21/2005 12/01/2007 Acute sinusitis, unspecified 09/17/2005 12/01/2007 Acute bronchitis 05/28/2005 12/01/2007 Encounters Date Type Department Care Team Description 01/25/2025 Refill [facility] [address] [place] [address] Dominick Grigsby MD Spondylosis of lumbar region without myelopathy or radiculopathy 01/11/2025 External Device Data STL ABSTRACTION Provider, Abstract 12/21/2024 External Device Data [facility] ABSTRACTION Provider, Abstract 12/20/2024 External Device Data ST[facility] ABSTRACTION Provider, Abstract 12/18/2024 Refill [facility] [address] [place] [address] Dominick Grigsby MD Mixed hyperlipidemia 12/08/2024 Abstract [facility] [address] [place] [address] Dominick Grigsby MD 12/06/2024 Abstract [facility] [address] [place] [address] Dominick Grigsby MD 12/06/2024 Orders Only [facility] [address] [place] [address] Provider, Abstract 12/05/2024 1:30 PM CDT Office Visit [facility] mark Landa [facility] [place] [address] Dominick Grigsby MD Essential hypertension, benign (Primary Dx); Hypertensive kidney disease with stage 3a chronic kidney disease (CMS/HCC); Stage 3a chronic kidney disease (CMS/HCC); Mixed hyperlipidemia; Major depressive disorder with single episode, in partial remission; 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; Stress at home; Primary osteoarthritis of right shoulder; Encounter for Medicare annual wellness exam 11/21/2024 Refill [facility] mark Landa [facility] [place] [address] Dominick Grigsby MD Spondylosis of lumbar region without myelopathy or radiculopathy 11/08/2024 External Device Data STL ABSTRACTION Provider, Abstract 11/01/2024 Abstract [facility] mark Pierre Jimenez [facility] [place] [address] Dominick Grigsby MD from Last 3 Months Immunizations Immunization Administration [...] file 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 Gender Identity Not on file Sexual Orientation Not on file Occupation Industry Job Start Date Job End Date Not on file Not on file Not on file Not on file Last Filed Vital Signs Vital Sign Reading Time Taken Comments Blood Pressure 126/64 12/05/2024 1:20 PM CDT Pulse 73 12/05/2024 1:20 PM CDT Temperature 36.9 C (98.4 F) 12/05/2024 1:20 PM CDT Respiratory Rate 16 12/05/2024 1:20 PM CDT Oxygen Saturation 95% 12/05/2024 1:20 PM CDT Inhaled Oxygen Concentration - - Weight 87.1 kg (192 lb) 12/05/2024 1:20 PM CDT Height 170.2 cm (5' 7) 12/05/2024 1:20 PM CDT Body Mass Index 30.07 12/05/2024 1:20 PM CDT Plan of Treatment Health Maintenance Due Date Last Done Comments RSV VACCINE (60+ or ) (1 - 1-dose 75+ series) 2023 INFLUENZA VACCINE (#1) 2025 3, 03/08/2021, 01/31/2020, Additional history exists OSTEOPOROSIS SCREENING 01/28/2027 2, 01/23/2017, 04/28/2014, Additional history exists DTAP/TDAP/TD VACCINES (4 - T d or Tdap) 06/26/2027 06/26/2017, 12/10/2009, 05/28/2006, Additional history exists PNEUMOCOCCAL VACCINE 50+ YEARS Completed 0 06/21/2015, 11/10/2014, 05/29/2009 ZOSTER VACCINE Completed 02/05/2018, 0702/2018, 09/28/2017 COLORECTAL SCREENING Discontinued 11/06/2021, 03/19/2017, 05/05/2006 Colorectal Cancer Screening Discontinued Medicare Ad[place]age ([place]) Preventative Visit/Annual Wellness Visit Completed 12/05/2024, 12/04/2023, 11/21/2022, Additional history exists FIT-DNA Q 3 years Discontinued FIT/FOBT Q 1 year Discontinued Flex Sig/CT Colonography Q 5 years Discontinued Medical Devices Implanted Type Area Contingents Supervisor Device Identifier Shelf Expiration Date Model / Serial / Lot Loop Polyp [id number] - [id number] Implanted:Qty: 1 on 07/06/2013 by Armin Garrison MD at [facility] Hemostatic [employer] 02/06/2015 [id number]-[id number]- [id number] / / Procedures Procedure Name Priority Date/Time Associated Diagnosis Comments MISCELLANEOUS LAB TEST Routine 10/25/2024 3:34 PM CDT XR DEXA BONE DENSITY AXIAL 1 OR MORE SITES Routine 01/28/2022 Menopausal and perimenopausal disorder COLONOSCOPY REPORT Routine 11/06/2021 from Last 3 Months or Most Recently Relevant to Health Maintenance Results * MISCELLANEOUS LAB TEST (10/25/2024 3:34 PM CDT) us Abstract Provider CHEMISTRY ORDERABLES Final Res ult [facility] SAME DAY [address] CLIA# [id number] [address] [address] * XR DEXA BONE DENSITY AXIAL 1 OR MORE SITES (01/28/2022) Anatomical Region Laterality Modality Other us Dominick Grigsby MD DIAGNOSTIC IMAGING ORDERABLES Final Result * COLONOSCOPY REPORT (11/06/2021) us Rafael Bunch MD GI PROCEDURE ORDERABLES Final Re sult [facility] ANNITA HERRERA# [id number] 300 [facility] [address] [place] [address] from Last 3 Months or Most Recently Relevant to Health Maintenance Insurance Advance Directives For more information, please contact: [phone] * Full Code (Latest Code Status on File) Date Activated Date Inactivated Comments 07/06/2013 6:33 AM 07/06/2013 11:27 AM * Full Code Date Activated Date Inactivated Comments 11/06/2010 10:57 PM 11/08/2010 5:14 PM * Full Code Date Activated Date Inactivated Comments 03/07/2010 5:50 AM 03/07/2010 6:25 PM * Full Code Date Activated Date Inactivated Comments 11/15/2009 5:54 AM 11/15/2009 8:29 PM Care Teams Liquid Hydrogen Plant Operator Relationship Specialty Start Date End Date Dominick Grigsby MD 300 [facility] [address] [place] [phone] PCP - General 10/11/01
--- OUTSIDE RECORDS SUMMARY | 2025-01-25 14:44 | XMS_ITS | Encounter Summary ---
Author Organization [facility] Address 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
--- OUTSIDE RECORDS SUMMARY | 2025-01-25 14:44 | XMS_ITS | Encounter Summary ---
Author Organization [facility] Address [address] [place] [address] Care Team Providers Care Household Appliance Repairer Name Role Phone Dominick Grigsby MD Primary Care Provider [phone] Encounter Details Date Type Department Care Team (Late st Contact Info) Description 01/01/2007 Orders Only [facility] Internal Medicine [address] [place] [address] Dominick Grigsby MD [address] [facility] [address] [place] [address] Social History Tobacco Use Types Packs/Day Years Used Date Smoking Tobacco: Never Assessed Comments Unknown Sex and Gender Information Value Date Recorded Sex Assigned at Not on file Legal Sex Female 3:52 AM AREA DIRECTOR OF HOME HEALTH SALES Gender Identity Not on file Sexual Orientation Not on file documented as of this encounter Progress Notes * Dominick Grigsby MD - 10/27/2007 12:35 PM CDT TIME:03:22 pm PATIENT`S HOME PHONE: PATIENT`S WORK PHONE: PATIENT`S INSURANCE: [employer] WHO TOOK THE CALL: Shannon Kingsley K GENERAL INFORMATION LAST VISIT: 11/19/06 WHO CALLED: Patient called. @ [phone] PHARMACY NUMBER: Susana @ # SECTION 1: REQUESTED ACTION [email or web address] 01/01/07 at 03:23 pm: MEDICATION REQUEST: Pt needs 90 day refill of the Tricor? 145mg??--not loaded in EMR Rx List--Call to [facility]--AND just FY--pt has lost 9 lbs--has been trying really hard the last 3 wks.../[facility] DOCTOR`S RESPONSE: [email or web address] 01/01/07 at 04:02 pm MEDICATIONS: TRICOR ORAL [...] on filedocumented in this encounter Care Teams Household Appliance Repairer Relationship Specialty Start Date End Date Dominick Grigsby MD [address] [facility] [address] [place] [address] PCP - General 10/11/01 documented as of this encounter
--- OUTSIDE RECORDS SUMMARY | 2025-01-25 14:44 | XMS_ITS | Encounter Summary ---
Author Organization [facility] Address [address] [place] [address] Care Team Providers Care Stain Wiper Name Role Phone Dominick Grigsby MD Primary Care Provider [phone] Encounter Details Date Type Department Care Team (Latest Contact Info) Description 12/22/2007 Outpatient Historical [facility] Dominick Grigsby MD [address] [place] [address] Unspecified Osteoporosis Social History Tobacco Use Types Packs/Day Years Used Date Smoking Tobacco: Never Alcohol Use Standard Drinks/Week Comments Yes 1.7 (1 standard drink = 0.6 oz p ure alcohol) Comments No Sex and Gender Information Value Date Recorded Sex Assigned at Not on file 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
--- OUTSIDE RECORDS SUMMARY | 2025-01-25 14:44 | XMS_ITS | Encounter Summary ---
Author Organization [facility] Address [address] [place] [address] Care Team Providers Care Charge Master Specialist Name Role Phone Dominick Grigsby MD Primary Care Provider [phone] Encounter Details Date Type Department Care Team (Late st Contact Info) Description 08/04/2006 Orders Only [facility] [place] [facility] Internal Medicine 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 WHO CALLED: Patient called. ALTERNATIVE PHONE NUMBER: [phone] SECTION 1: REQUESTED ACTION shawn 08/04/06 at [...] nothing generic for this medication/rll DOCTOR`S RESPONSE: anyi 08/04/06 at 11:12 am MEDICATIONS: PREVACID ORAL PACK 30 MG, 1 Every Day, 30 Dispensed, 30 Duration/Days Supply, status: DISCONTINUED HISTORY, 08/04/2006. OMEPRAZOLE ORAL CAPSULE DELAYED RELEASE 20 MG, 1 Every Day, 30 Dispensed, 5 Fills, status: NEW PRESCRIPTION, 08/04/2006. FINAL ACTION: shawn 08/04/06 at 11:55 am Spoke with patient [...] on filedocumented in this encounter Care Teams Charge Master Specialist Relationship Specialty Start Date End Date Dominick Grigsby MD 300 [facility] [address] [place] [address] PCP - General 10/11/01 documented as of this encounter
--- OUTSIDE RECORDS SUMMARY | 2025-01-25 14:44 | XMS_ITS | Encounter Summary ---
Author Organization [facility] Address [address] [place] [address] Care Team Providers Care Portable Canteen Operator Name Role Phone Dominick Grigsby MD Primary Care Provider [phone] Encounter Details Date Type Department Care Team (Latest Contact Info) Description 10/11/2001 Outpatient Historical [facility] Christina Keller MD [address] [place] [address] SCREENING-NEUROLOGI SENA COND (Primary Dx) Social History Tobacco Use Types Packs/Day Years Used Date Smoking Tobacco: Never Assessed Comments Unknown Sex and Gender Information Value Date Recorded Sex Assigned at Not on file Legal Sex Female 3:52 AM CARE TRAINER Gender Identity Not on file Sexual Orientation Not on file documented as of this encounter Plan of Treatment Not on file documented as of this encounter Visit Diagnoses Diagnosis Screening for neurological conditions- Primary documented in this encounter Care Teams Portable Canteen Operator Relationship Specialty Start Date End Date Dominick Grigsby MD [address] [place] [address] [address] [place] [address] PCP - General 10/11/01 documented as of this encounter
--- OUTSIDE RECORDS SUMMARY | 2025-01-25 14:44 | XMS_ITS | Encounter Summary ---
Author Organization [facility] Address [address] [place] [address] Care Team Providers Care Automation Mechanic Name Role Phone Dominick Grigsby MD Primary Care Provider Encounter Details Date Type Department Care Team (Late st Contact Info) Description 05/21/2006 Outpatient Historical [facility] Internal Medicine [address] [place] [address] Dominick Grigsby MD [address] [place] [address] Social History Tobacco Use Types Packs/Day Years Used Date Smoking Tobacco: Never Assessed Comments Unknown Sex and Gender Information Value Date Recorded Sex Assigned at Not on file Legal Sex Female 3:52 AM PACKER Gender Identity Not on file Sexual Orientation Not on file documented as of this encounter Plan of Treatment Not on file documented as of this encounter Visit Diagnoses Not on filedocumented in this encounter Care Teams Automation Mechanic Relationship Specialty Start Date End Date Dominick Grigsby MD [address] [place] [address] PCP - General 10/11/01 documented as of this encounter
--- OUTSIDE RECORDS SUMMARY | 2025-01-25 14:44 | XMS_ITS | Encounter Summary ---
Author Organization [facility] Address [address] [place] [address] Care Team Providers Care Shift Mgr Name Role Phone Dominick Grigsby MD Primary Care Provider Encounter Details Date Type Department Care Team (Late st Contact Info) Description 09/27/2007 Orders Only [facility] Internal Medicine [address] [place] [address] Dominick Grigsby MD 300 [facility] [address] [place] [address] Social History Tobacco Use Types Packs/Day Years Used Date Smoking Tobacco: Never Assessed Comments Unknown Sex and Gender Information Value Date Recorded Sex Assigned at Not on file Legal Sex Female 3:52 AM ED PHYSICIANS Gender Identity Not on file Sexual Orientation Not on file documented as of this encounter Progress Notes * Dominick Grigsby MD - 11/12/2007 11:05 AM CDT TIME:10:56 am PATIENT`S HOME PHONE: PATIENT`S WORK PHONE: PATIENT`S INSURANCE: [employer] WHO TOOK THE CALL: Lisa Collins L GENERAL INFORMATION PATIENT STATUS: Established Patient. WHO CALLED: Pharmacy called. PHARMACY NUMBER: [phone] SECTION 1: REQUESTED ACTION [email or web address] 09/27/07 at 10:56 am: MEDICATION REQUEST: MEDICATION REQUEST: Patient requests a refill. Trazodone 100mg #30. last fill: 08/28/07/rll DOCTOR`S RESPONSE: [email or web address] 09/27/07 at 11:10 am MEDICATIONS: TRAZODONE HCL [...] on filedocumented in this encounter Care Teams Shift Mgr Relationship Specialty Start Date End Date Dominick Grigsby MD 300 [facility] [address] [place] [address] PCP - General 10/11/01 documented as of this encounter
--- OUTSIDE RECORDS SUMMARY | 2025-01-25 14:44 | XMS_ITS | Encounter Summary ---
Author Organization [employer] [facility] Address [address] [place] [address] Care Team Providers Care Administrative Office Specialist Name Role Phone Dominick Grigsby MD Primary Care Provider [phone] Encounter Details Date Type Department Care Team (Latest Contact Info) Description 05/30/2008 Outpatient Historical [facility] [address] Dominick Grigsby MD [address] [place] [address] Routine Gynecological Examination Social History Tobacco Use Types Packs/Day Years Used Date Smoking Tobacco: Never Alcohol Use Standard Drinks/Week Comments Yes 1.7 (1 standard drink = 0.6 oz p ure alcohol) Comments No Sex and Gender Information Value Date Recorded Sex Assigned at Not on file 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
--- OUTSIDE RECORDS SUMMARY | 2025-01-25 14:44 | XMS_ITS | Encounter Summary ---
Author Organization [facility] Address [address] [place] [address] Care Team Providers Care Manufacturing Production Technician Name Role Phone Dominick Grigsby MD Primary Care Provider Encounter Details Date Type Department Care Team (Late st Contact Info) Description 06/09/2007 Outpatient Historical [facility] Internal Medicine [address] [place] [address] Dominick Grigsby MD [address] [place] [address] Social History Tobacco Use Types Packs/Day Years Used Date Smoking Tobacco: Never Assessed Comments Unknown Sex and Gender Information Value Date Recorded Sex Assigned at Not on file 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
--- OUTSIDE RECORDS SUMMARY | 2025-01-25 14:44 | XMS_ITS | Encounter Summary ---
Author Organization [facility] Address [address] [place] [address] Care Team Providers Care Radiology Tech Name Role Phone Dominick Grigsby MD Primary Care Provider [phone] Encounter Details Date Type Department Care Team (Late st Contact Info) Description 04/27/2003 Outpatient Historical [facility] Internal Medicine [address] [place] [address] Dominick Grigsby MD [address] [place] [address] Social History Tobacco Use Types Packs/Day Years Used Date Smoking Tobacco: Never Assessed Comments Unknown Sex and Gender Information Value Date Recorded Sex Assigned at Not on file 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
--- OUTSIDE RECORDS SUMMARY | 2025-01-25 14:44 | XMS_ITS | Encounter Summary ---
Author Organization [employer] Address [address] [place] [address] Care Team Providers Care Enrollment Management Coordinator Name Role Phone Dominick Grigsby MD Primary Care Provider [phone] Encounter Details Date Type Department Care Team (Late st Contact Info) Description 10/21/2005 Outpatient Historical [facility] Internal Medicine [address] [place] [address] Jorge L Fragoso DO [address] [place] [address] Social History Tobacco Use Types Packs/Day Years Used Date Smoking Tobacco: Never Assessed Comments Unknown Sex and Gender Information Value Date Recorded Sex Assigned at Not on file Legal Sex Female 3:52 AM TONGUE CARRIER Gender Identity Not on file Sexual Orientation [...] on filedocumented in this encounter Care Teams Enrollment Management Coordinator Relationship Specialty Start Date End Date Dominick Grigsby MD [address] [facility] [address] [place] [address] PCP - General 10/11/01 documented as of this encounter
--- OUTSIDE RECORDS SUMMARY | 2025-01-25 14:44 | XMS_ITS | Encounter Summary ---
Author Organization [facility] Address [address] [place] [address] Care Team Providers Care Facilities Maintenance Supervisor Name Role Phone Dominick Grigsby MD Primary Care Provider Encounter Details Date Type Department Care Team (Late st Contact Info) Description 05/21/2006 Outpatient Historical [facility] Internal Medicine [address] [place] [address] Dominick Grigsby MD [address] [place] [address] Social History Tobacco Use Types Packs/Day Years Used Date Smoking Tobacco: Never Assessed Comments Unknown Sex and Gender Information Value Date Recorded Sex Assigned at Not on file 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
--- OUTSIDE RECORDS SUMMARY | 2025-01-25 14:44 | XMS_ITS | Encounter Summary ---
Author Organization [facility] Address [address] [place] [address] Care Team Providers Care Cycle Consultant Name Role Phone Dominick Grigsby MD Primary Care Provider Encounter Details Date Type Department Care Team (Late st Contact Info) Description 05/28/2006 Outpatient Historical [facility] Internal Medicine [address] [place] [address] Dominick Grigsby MD [address] [place] [address] Social History Tobacco Use Types Packs/Day Years Used Date Smoking Tobacco: Never Assessed Comments Unknown Sex and Gender Information Value Date Recorded Sex Assigned at Not on file 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
[2025-01-25 15:29] LABS: Hematocrit 39.9 % (37.0-47.0); Hemoglobin 13.6 g/dL (12.0-15.0); Immature Granulocyte Percent A 0.5 % (0-0.5); Lymphocytes Absolute Auto 2.25 K/mm3 (0.9-3.2); Mean Corpuscular HGB Conc 34.1 g/dl (32-36); Mean Corpuscular Hemoglobin 29.8 pg (26-34); Mean Corpuscular Volume 87.5 fl (80-100); Nucleated Red Blood Cells Absolute Auto 0.000 K/mm3 (0.0-0.012); Nucleated Red Blood Cells Perc 0.0 % (0.0-0.2); Platelet Count Result 219 k/mm3 (150-375); Red Blood Count 4.56 M/mm3 (4.2-5.4); White Blood Count 8.2 K/mm3 (4.5-10.0)
[2025-01-25 15:38] LABS: Hemoglobin A1C 5.6 % (<5.7)
[2025-01-25 15:42] LABS: Albumin Level 4.7 g/dL (3.5-5.1)
[2025-01-25 15:46] LABS: Anion Gap 9 mmol/L (4-12); Blood Urea Nitrogen 14 mg/dL (7-17); Calcium 10.1 mg/dL (8.4-10.2); Carbon Dioxide 27 mmol/L (22-30); Chloride 101 mmol/L (98-107); Estimated Glomerular Filt Rate 49; Glucose 88 mg/dL (65-110); Potassium 4.1 mmol/L (3.4-5.0); Sodium 137 mmol/L (137-145)
[2025-01-25 16:42] LABS: MRSA (PCR) NOT DETECTED (NOT DETECTE)
== END 2025-01-25 14:09 | disposition home or self-care (01) ==
LOC: ANHSURGERY 14:14
PROVIDERS: Anesthesiology; Visit Provider Orthopaedic Surgery
DX: M17.11 Unilateral primary osteoarthritis, right knee (principal); I10 Essential (primary) hypertension; Z01.818 Encounter for other preprocedural examination
CPT/HCPCS: 36415; 80048; 80307; 82040; 83036; 85025; 87641

== ENCOUNTER 2025-02-20 03:13 | Day surgery (SDC) | payer MEDICARE, SELFPAY ==
--- NOTE | 2025-01-25 14:05 | PC.NURSE ---
Report to the Outpatient Waiting Room, entrance under the green pavilion located off [facility], at time 10 am on date _02/20/25 . Planned Procedure Time: __1200 noon .? Time changes happen often and if your time is changed the preop area will call you the afternoon before. - You and your visitor will be asked to self-screen and do not enter if you have any COVID symptoms. Please call surgeon if you need to reschedule. - A mask is optional within the hospital at this time. Patients may have clear liquids (water, carbonated beverages, clear teas, apple juice) until 3 hours prior to surgery ( 9am) with a maximum of 20 ounces. - No food from midnight until time of surgery and no smoking, or chewing tobacco (or any form of nicotine). No chewing gum, candy or mints. - Take only the following medications with a SIP of water on the morning of surgery: __AMLODIPINE, EYE DROPS ESCITALOPRAM DO NOT STOP ANY OF YOUR OTHER PRESCRIPTION MEDICATIONS PRIOR TO SURGERY EXCEPT THE FOLLOWING Hold all vitamins and supplements for 3 days per anesthesiologist.LAST DOSE 02/16/25 Medications to discontinue per physician PT STATES HOLD CELECOXIB 3 DAYS PRE OP PER DR LOTT Date to take last dose 02/16/25 Please no make-up, nail occitan, hairspray, perfume, deodorant, or body powder the day of surgery.? No jewelry (including any body piercings) or valuables the day of surgery, leave them at home.? Please take a shower or bath the night before, or the morning of, surgery with an antibacterial soap.? Wear comfortable, loose fitting clothing.? Children are encouraged to wear pajamas. - Jewelry must be removed prior to entering the operating room.? Rings and piercings that are not removed may be cut off. - The hospital will not accept responsibility for valuables.? - Please leave all valuables, including medications, at home the day of surgery. If you are going home after surgery, a licensed local company flatbed truck driver must drive you home.? - NO public transportation without another adult if you receive anesthesia. - We recommend that an adult stay with you for 24 hours following discharge. - We also recommend that you do not drive, make important decision, drink alcoholic beverages, or take any drugs that were not prescribed by your health care provider for at least 24 hours after your discharge time. For Pediatric surgeries, we recommend two adults accompany the child home. Follow any additional instructions given to you from your surgeon. verbal and written instructions given to ___PATIENT and asked if any additional questions and then verbalized understanding. Patient advised to call surgeon office or pre surgery nurse liaison [phone] if any additional questions.
[2025-01-25 14:18] VITALS: BMI 28.9
[2025-01-25 14:58] VITALS: BP 112/69; PULSE 61; RESP 18; TEMP 36.8; O2SAT 99
[2025-02-20] VITALS (10 sets, daily range): BP systolic 116–151; BP diastolic 53–81; PULSE 66–94; RESP 10–16; TEMP 36.2–36.9; O2SAT 90–97
--- NOTE | ~2025-02-20 | XR_ITS ---
EXAMINATION: [id number], 02/20/2025 15:12 CDT HISTORY: POST-OP RIGHT CUSTOM TKA COMPARISON: No comparisons available. Findings: No acute fracture or malalignment. Prosthesis intact Soft tissues unremarkable. Impression: No acute fracture or malalignment. Reviewed, dictated and finalized at location A. Impression: No acute fracture or malalignment.
--- OUTSIDE RECORDS SUMMARY | 2025-02-20 03:16 | XMS_ITS | Encounter Summary ---
Author Organization [facility] Address 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
--- OUTSIDE RECORDS SUMMARY | 2025-02-20 03:16 | XMS_ITS | Encounter Summary ---
Author Organization [employer] [facility] Address [address] [place] [address] Care Team Providers Care Mid Level Project Manager Name Role Phone Dominick Grigsby MD Primary Care Provider [phone] Encounter Details Date Type Department Care Team (Late st Contact Info) Description 09/17/2005 Outpatient Historical [facility] Internal Medicine 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
--- OUTSIDE RECORDS SUMMARY | 2025-02-20 03:16 | XMS_ITS | Encounter Summary ---
Author Organization [facility] Address [address] [place] [address] Care Team Providers Care Craft Coordinator Name Role Phone Dominick Grigsby MD Primary Care Provider Encounter Details Date Type Department Care Team (Late st Contact Info) Description 05/02/2003 Outpatient Historical [facility] Internal Medicine [address] [place] [address] Dominick Grigsby MD [address] [place] [address] Social History Tobacco Use Types Packs/Day Years Used Date Smoking Tobacco: Never Assessed Comments Unknown Sex and Gender Information Value Date Recorded Sex Assigned at Not on file 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
--- OUTSIDE RECORDS SUMMARY | 2025-02-20 03:16 | XMS_ITS | Clinical Summary ---
Author Organization [facility] [address] [facility] [address] Address [address] [place] [address] Care Team Providers Care Seafood Technology Specialist Name Role Phone Dominick Grigsby MD Primary Care Provider Allergies No known active allergies Social History Tobacco Use Types Packs/Day Years Used Date Smoking Tobacco: Never Assessed Personal Safety Answer Date Recorded Getting School Help Needed Not on file 05/18 Comments Unknown Sex and Gender Information Value Date Recorded Sex Assigned at Not on file Legal Sex Female 12:53 PM ABALONE SHELLER Gender Identity Not on file Sexual Orientation Not on file Plan of Treatment Health Maintenance Due Date Last Done Comments Depression Screening 1948 Fall Risk Assessment 1950 Hepatitis C Screening 1950 Osteoporosis Screening-Bone Density Scan 1948 Hepatitis B Screening 1966 Well Visit 65+ 2013 Covid-19 Vaccine (6 2024-2 6 season) 2025 03/14/2022, 09/24/2021, 04/04/2021, Additional history exists Influenza Vaccine (#1) 2025 2, 03/08/2021, 02/07/2021, Additional history exists DTaP/Tdap/Td Vaccine (4 - Td or Tdap) 06/26/2027 06/26/2017, 12/10/2009, 05/28/2006, Additional history exists Pneumococcal vaccine 65+ Completed 016, 11/10/2014, 05/29/2009 Zoster Vaccine Completed 02/05/2018, 07/0 02/2018, 09/28/2017 [id number] [facility] MEDICARE [employer] [facility]IC[facility] Address: [id number] [place] [address] [id number] [facility] MEDICARE [employer] [facility] Address: [facility] [address] [place] [address] Care Teams Seafood Technology Specialist Relationship Specialty Start Date End Date Dominick Grigsby MD PCP - General Internal Medicine 10/21/22
--- OUTSIDE RECORDS SUMMARY | 2025-02-20 03:16 | XMS_ITS | Patient Health Record ---
Author Organization [employer] Address [address] [facility] [address]. [address] [place] [address] Care Team Providers Care Assistant Inventory Manager Name Role Phone Dominick Grigsby MD Primary Care Provider Unavaila ble Reason For Referral No Information Plan Of Treatment No Information Insurance Providers Payer Name Payer Address Payer Phone Subscriber Number Group Number Insured Name Patient Relationship to Insured Coverage Start Date Coverage End Date Medicare E2 [address] [address] [place] [address] [id number] Nissa Thao Self - patient is the insured 3 [employer] [address] [address] [place] [address] [id number] Nissa Thao Self - patient is the insured
--- OUTSIDE RECORDS SUMMARY | 2025-02-20 03:16 | XMS_ITS | Encounter Summary ---
Author Organization [facility] Address [address] [place] [address] Care Team Providers Care Storage Facility Housekeeper Name Role Phone Dominick Grigsby MD Primary Care Provider Encounter Details Date Type Department Care Team (Late st Contact Info) Description 05/13/2005 Outpatient Historical [facility] Internal Medicine [address] [place] [address] Dominick Grigsby MD [address] [place] [address] Social History Tobacco Use Types Packs/Day Years Used Date Smoking Tobacco: Never Assessed Comments Unknown Sex and Gender Information Value Date Recorded Sex Assigned at Not on file 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
--- OUTSIDE RECORDS SUMMARY | 2025-02-20 03:16 | XMS_ITS | Encounter Summary ---
Author Organization [facility] Address [address] [place] [address] Care Team Providers Care Space Planner Name Role Phone Dominick Grigsby MD Primary Care Provider [phone] Encounter Details Date Type Department Care Team (Latest Contact Info) Description 05/01/2003 Outpatient Historical [facility] Dominick Grigsby MD [address] [place] [address] PNEUMONIA, ORGANISM NOS (Primary Dx) Social History Tobacco Use Types Packs/Day Years Used Date Smoking Tobacco: Never Assessed Comments Unknown Sex and Gender Information Value Date Recorded Sex Assigned at Not on file Legal Sex Female 3:52 AM SHIRT MARKER Gender Identity Not on file Sexual Orientation Not on file documented as of this encounter Plan of Treatment Not on file documented as of this encounter Visit Diagnoses Diagnosis Pneumonia, organism unspecified(486)- Primary Pneumonia, organism unspecified documented in this encounter Care Teams Space Planner Relationship Specialty Start Date End Date Dominick Grigsby MD [address] [place] [address] PCP - General 10/11/01 documented as of this encounter
--- OUTSIDE RECORDS SUMMARY | 2025-02-20 03:16 | XMS_ITS | Encounter Summary ---
Author Organization [facility] Address [address] [place] [address] Care Team Providers Care Supervisor Aircraft Cleaning Name Role Phone Dominick Grigsby MD Primary Care Provider Encounter Details Date Type Department Care Team (Late st Contact Info) Description 04/27/2003 Outpatient Historical 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
--- OUTSIDE RECORDS SUMMARY | 2025-02-20 03:16 | XMS_ITS | Encounter Summary ---
Author Organization [facility] Address [address] [place] [address] Care Team Providers Care Sign Manufacturer Name Role Phone Dominick Grigsby MD Primary Care Provider [phone] Reason for Visit * Reason Comments Medication Refill Encounter Details Date Type Department Care Team (Late st Contact Info) Description 06/25/2018 Refill [facility] [address] [facility] [address] [place] [address] Dominick Grigsby MD [address] [place] [address] [address] [place] [address] Social History Tobacco Use Types Packs/Day Years Used Date Smoking Tobacco: Never Smokeless Tobacco: Never Alcohol Use Standard Drinks/Week Comments Yes 0.8 (1 standard drink = 0.6 oz p ure alcohol) rarely Comments No Sex and Gender Information Value Date Recorded Sex Assigned at Not on file Legal Sex Female 3:52 AM ROUSTABOUT Gender Identity Not on file Sexual Orientation Not on file Occupation Industry Job Start Date Job End Date Not on file Not on file Not on file Not on file documented as of this encounter Miscellaneous Notes * Telephone Encounter - Santos, Koki Almonte - 06/25/2018 7:04 AM CST Last ov - 11/24/2017 Last refill-06/10/2018 TABOUT documented in this encounter Plan of Treatment Not on file documented as of this encounter Visit Diagnoses Not on filedocumented in this encounter Care Teams Sign Manufacturer Relationship Specialty Start Date End Date Dominick Grigsby MD [address] [place] [address] PCP - General 10/11/01 documented as of this encounter
--- OUTSIDE RECORDS SUMMARY | 2025-02-20 03:16 | XMS_ITS | Encounter Summary ---
Author Organization [facility] Address [address] [place] [address] Care Team Providers Care Toll Operator Name Role Phone Domincik Grigsby MD Primary Care Provider [phone] Encounter Details Date Type Department Care Team (Late st Contact Info) Description 05/28/2005 Outpatient Historical [facility] Internal Medicine [address] [place] [address] Dominick Grigsby MD [address] [facility] [address] [place] [address] Social History Tobacco Use Types Packs/Day Years Used Date Smoking Tobacco: Never Assessed Comments Unknown Sex and Gender Information Value Date Recorded Sex Assigned at Not on file Legal Sex Female 3:52 AM STRAIGHT KNIFE CUTTER MACHINE Gender Identity Not on file Sexual Orientation Not on file documented as of this encounter Last Filed Vital Signs Vital Sign Reading Time Taken Comments Blood Pressure 126/74 05/28/2005 2:45 PM STRAIGHT KNIFE CUTTER MACHINE Pulse - - Temperature 37.3 C (99.1 F) 05/28/2005 2:45 PM STRAIGHT KNIFE CUTTER MACHINE Respiratory Rate - - Oxygen Saturation - - Inhaled Oxygen Concentration - - Weight 79.8 kg (176 lb) 05/28/2005 2:45 PM STRAIGHT KNIFE CUTTER MACHINE Height - - Body Mass Index - - documented in this encounter Plan of Treatment Not on file documented as of this encounter Visit Diagnoses Not on filedocumented in this encounter Care Teams Toll Operator Relationship Specialty Start Date End Date Dominick Grigsby MD [address] [facility] [address] [place] [address] PCP - General 10/11/01 documented as of this encounter
--- OUTSIDE RECORDS SUMMARY | 2025-02-20 03:16 | XMS_ITS | Encounter Summary ---
Author Organization [facility] Address [address] [place] [address] Care Team Providers Care Canal Lock Tender Chief Operator Name Role Phone Dominick Grigsby MD Primary Care Provider [phone] Encounter Details Date Type Department Care Team (Late st Contact Info) Description 05/13/2005 Outpatient [facility] Internal Medicine [address] [place] [address] Dominick Grigsby MD [address] [place] [address] Social History Tobacco Use Types Packs/Day Years Used Date Smoking Tobacco: Never Assessed Comments Unknown Sex and Gender Information Value Date Recorded Sex Assigned at Not on file Legal Sex Female 3:52 AM PARTS ANALYST Gender Identity Not on file Sexual Orientation Not on file documented as of this encounter Plan of Treatment Not on file documented as of this encounter Visit Diagnoses Not on filedocumented in this encounter Care Teams Canal Lock Tender Chief Operator Relationship Specialty Start Date End Date Dominick Grigsby MD [address] [place] [address] PCP - General 10/11/01 documented as of this encounter
--- OUTSIDE RECORDS SUMMARY | 2025-02-20 03:16 | XMS_ITS | Encounter Summary ---
Author Organization [facility] Address [address] [place] [address] Care Team Providers Care Drawing Machine Operator Name Role Phone Dominick Grigsby MD Primary Care Provider Encounter Details Date Type Department Care Team (Late st Contact Info) Description 10/31/2004 Outpatient Historical [facility] Internal Medicine [address] [place] [address] Dominick Grigsby MD [address] [place] [address] Social History Tobacco Use Types Packs/Day Years Used Date Smoking Tobacco: Never Assessed Comments Unknown Sex and Gender Information Value Date Recorded Sex Assigned at Not on file Legal Sex Female 3:52 AM CLINICAL SUPERVISOR Gender Identity Not on file Sexual Orientation Not on file documented as of this encounter Plan of Treatment Not on file documented as of this encounter Visit Diagnoses Not on filedocumented in this encounter Care Teams Drawing Machine Operator Relationship Specialty Start Date End Date Dominick Grigsby MD [address] [place] [address] PCP - General 10/11/01 documented as of this encounter
--- OUTSIDE RECORDS SUMMARY | 2025-02-20 03:16 | XMS_ITS | Encounter Summary ---
Author Organization [facility] Address [address] [place] [address] Care Team Providers Care Wildland Fire Fighter Name Role Phone Dominick Grigsby MD Primary Care Provider [phone] Encounter Details Date Type Department Care Team (Late st Contact Info) Description 01/12/2006 Orders Only [facility] Internal Medicine [address] [place] [address] Dominick Grigsby MD [address] [facility] [address] [place] [address] Social History Tobacco Use Types Packs/Day Years Used Date Smoking Tobacco: Never Assessed Comments Unknown Sex and Gender Information Value Date Recorded Sex Assigned at Not on file Legal Sex Female 3:52 AM BARTENDER MANAGER Gender Identity Not on file Sexual Orientation Not on file documented as of this encounter Progress Notes * Dominick Grigsby MD - 03/16/2008 10:05 PM CDT TIME:09:59 am PATIENT`S HOME PHONE: PATIENT`S WORK PHONE: PATIENT`S INSURANCE: [facility] WHO TOOK THE CALL: Lisa Collins L GENERAL INFORMATION PATIENT STATUS: Established Patient. WHO CALLED: Patient called. ALTERNATIVE PHONE NUMBER: [phone] PHARMACY NUMBER: [phone] [facility] SECTION 1: REQUESTED ACTION shawn [...] on filedocumented in this encounter Care Teams Wildland Fire Fighter Relationship Specialty Start Date End Date Dominick Grigsby MD [address] [facility] [address] [place] [address] PCP - General 10/11/01 documented as of this encounter
--- OUTSIDE RECORDS SUMMARY | 2025-02-20 03:16 | XMS_ITS | Encounter Summary ---
Author Organization [facility] Address [address] [place] [address] Care Team Providers Care Statistical Reporting Analyst Name Role Phone Dominick Grigsby MD Primary Care Provider Encounter Details Date Type Department Care Team (Late st Contact Info) Description 05/09/2004 Outpatient Historical [facility] Internal Medicine [address] [place] [address] Dominick Grigsby MD [address] [place] [address] Social History Tobacco Use Types Packs/Day Years Used Date Smoking Tobacco: Never Assessed Comments Unknown Sex and Gender Information Value Date Recorded Sex Assigned at Not on file Legal Sex Female 3:52 AM LABORATORY MECHANIC HELPER Gender Identity Not on file Sexual Orientation Not on file documented as of this encounter Plan of Treatment Not on file documented as of this encounter Visit Diagnoses Not on filedocumented in this encounter Care Teams Statistical Reporting Analyst Relationship Specialty Start Date End Date Dominick Grigsby MD [address] [place] [address] PCP - General 10/11/01 documented as of this encounter
--- OUTSIDE RECORDS SUMMARY | 2025-02-20 03:16 | XMS_ITS | Encounter Summary ---
Author Organization [facility] Address [address] [place] [address] Care Team Providers Care Senior Investigator Name Role Phone Dominick Grigsby MD Primary Care Provider Encounter Details Date Type Department Care Team (Late st Contact Info) Description 08/01/2004 Outpatient Historical [facility] Internal Medicine [address] [place] [address] Dominick Grigsby MD [address] [place] [address] Social History Tobacco Use Types Packs/Day Years Used Date Smoking Tobacco: Never Assessed Comments Unknown Sex and Gender Information Value Date Recorded Sex Assigned at Not on file Legal Sex Female 3:52 AM CUPOLA WORKER Gender Identity Not on file Sexual Orientation Not on file documented as of this encounter Plan of Treatment Not on file documented as of this encounter Visit Diagnoses Not on filedocumented in this encounter Care Teams Senior Investigator Relationship Specialty Start Date End Date Dominick Grigsby MD [address] [place] [address] PCP - General 10/11/01 documented as of this encounter
--- OUTSIDE RECORDS SUMMARY | 2025-02-20 03:16 | XMS_ITS | Encounter Summary ---
Author Organization [facility] Address [address] [place] [address] Care Team Providers Care Range Conservationist Name Role Phone Dominick Grigsby MD Primary Care Provider [phone] Encounter Details Date Type Department Care Team (Late st Contact Info) Description 10/31/2005 Outpatient Historical [facility] Internal Medicine [address] [place] [address] Dominick Grigsby MD [address] [facility] [address] [place] [address] Social History Tobacco Use Types Packs/Day Years Used Date Smoking Tobacco: Never Assessed Comments Unknown Sex and Gender Information Value Date Recorded Sex Assigned at Not on file Legal Sex Female 3:52 AM CADD DRAFTER Gender Identity Not on file Sexual Orientation [...] on filedocumented in this encounter Care Teams Range Conservationist Relationship Specialty Start Date End Date Dominick Grigsby MD [address] [facility] [address] [place] [address] PCP - General 10/11/01 documented as of this encounter
--- OUTSIDE RECORDS SUMMARY | 2025-02-20 03:16 | XMS_ITS | Encounter Summary ---
Author Organization [facility] Address [address] [place] [address] Care Team Providers Care Ice Hockey Coach Name Role Phone Dominick Grigsby MD Primary Care Provider Encounter Details Date Type Department Care Team (Late st Contact Info) Description 08/29/2004 Outpatient Historical [facility] Internal Medicine [address] [place] [address] Dominick Grigsby MD [address] [place] [address] Social History Tobacco Use Types Packs/Day Years Used Date Smoking Tobacco: Never Assessed Comments Unknown Sex and Gender Information Value Date Recorded Sex Assigned at Not on file Legal Sex Female 3:52 AM EXPRESS CLERK Gender Identity Not on file Sexual Orientation Not on file documented as of this encounter Plan of Treatment Not on file documented as of this encounter Visit Diagnoses Not on filedocumented in this encounter Care Teams Ice Hockey Coach Relationship Specialty Start Date End Date Dominick Grigsby MD [address] [place] [address] PCP - General 10/11/01 documented as of this encounter
--- OUTSIDE RECORDS SUMMARY | 2025-02-20 03:16 | XMS_ITS | Encounter Summary ---
Author Organization [facility] Address [address] [place] [address] Care Team Providers Care Custom Leather Products Maker Name Role Phone Dominick Grigsby MD Primary Care Provider [phone] Encounter Details Date Type Department Care Team (Late st Contact Info) Description 05/19/2002 [facility] Dominick Grigsby MD [address] [place] [address] Social History Tobacco Use Types Packs/Day Years Used Date Smoking Tobacco: Never Assessed Comments Unknown Sex and Gender Information Value Date Recorded Sex Assigned at Not on file Legal Sex Female 3:52 AM FASHION MODEL Gender Identity Not on file Sexual Orientation Not on file documented as of this encounter Plan of Treatment Not on file documented as of this encounter Visit Diagnoses Not on filedocumented in this encounter Care Teams Custom Leather Products Maker Relationship Specialty Start Date End Date Dominick Grigsby MD [address] [place] [address] PCP - General 10/11/01 documented as of this encounter
--- OUTSIDE RECORDS SUMMARY | 2025-02-20 03:16 | XMS_ITS | Encounter Summary ---
Author Organization [facility] Address [address] [place] [address] Care Team Providers Care Cable Assembler Name Role Phone Dominick Grigsby MD Primary Care Provider Encounter Details Date Type Department Care Team (Late st Contact Info) Description 11/01/2002 Outpatient Historical [facility] Internal Medicine [address] [place] [address] Dominick Grigsby MD [address] [place] [address] Social History Tobacco Use Types Packs/Day Years Used Date Smoking Tobacco: Never Assessed Comments Unknown Sex and Gender Information Value Date Recorded Sex Assigned at Not on file 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
--- OUTSIDE RECORDS SUMMARY | 2025-02-20 03:16 | XMS_ITS | Encounter Summary ---
Author Organization [employer] Address [address] [place] [address] Care Team Providers Care Credit Controller Name Role Phone Dominick Grigsby MD Primary Care Provider [phone] Encounter Details Date Type Department Care Team (Latest Contact Info) Description 11/06/2005 Outpatient Historical [facility] Dominick Grisgby MD [address] [place] [address] Unspecified Osteoporosis (Primary Dx) Social History Tobacco Use Types Packs/Day Years Used Date Smoking Tobacco: Never Assessed Comments Unknown Sex and Gender Information Value Date Recorded Sex Assigned at Not on file Legal Sex Female 3:52 AM QA INTERN Gender Identity Not on file Sexual Orientation Not on file documented as of this encounter Plan of Treatment Not on file documented as of this encounter Visit Diagnoses Diagnosis Osteoporosis, unspecified- Primary documented in this encounter Care Teams Credit Controller Relationship Specialty Start Date End Date Dominick Grigsby MD [address] [place] [address] PCP - General 10/11/01 documented as of this encounter
--- OUTSIDE RECORDS SUMMARY | 2025-02-20 03:16 | XMS_ITS | Encounter Summary ---
Author Organization [facility] Address [address] [place] [address] Care Team Providers Care Vamp Throater Name Role Phone Dominick Grigsby MD Primary Care Provider [phone] Encounter Details Date Type Department Care Team (Late st Contact Info) Description 05/08/2003 Outpatient Historical [facility] Internal Medicine [address] [place] [address] Dominick Grigsby MD [address] [place] [address] Social History Tobacco Use Types Packs/Day Years Used Date Smoking Tobacco: Never Assessed Comments Unknown Sex and Gender Information Value Date Recorded Sex Assigned at Not on file Legal Sex Female 3:52 AM RADIOLOGY MANAGER Gender Identity Not on file Sexual Orientation Not on file documented as of this encounter Plan of Treatment Not on file documented as of this encounter Visit Diagnoses Not on filedocumented in this encounter Care Teams Vamp Throater Relationship Specialty Start Date End Date Dominick Grigsby MD [address] [place] [address] PCP - General 10/11/01 documented as of this encounter
--- OUTSIDE RECORDS SUMMARY | 2025-02-20 03:16 | XMS_ITS | Encounter Summary ---
Author Organization [facility] Address 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
--- OUTSIDE RECORDS SUMMARY | 2025-02-20 03:16 | XMS_ITS | Clinical Summary ---
Author Organization [facility] Address [address] [place] [address] Care Team Providers Care Hvac Maintenance Technician Name Role Phone Dominick Grigsby MD Primary Care Provider [phone] Allergies Active Allergy Reactions Criticality Noted Date Comments Gemfibrozil Other (See Comments) 07/05/2013 Joint pain Penicillins Rash Low 03/27/2014 Medications FA/MV,CA,FE,MIN/LY COPENE/LUT (MULTIVITAL ORAL) Take by mouth. Active [place]-3 Fatty Acids 1,000 mg Oral Cap Take [...] daily 90 Tablet 3 03/30/20 24 Active Restasis 0.05 % emulsion Administer 1 [...] 6 Tablets 60 Tablet 01/26/20 25 Active hydroCHLOROthiazid e (MICROZIDE) 12.5 mg capsuleIndications :Essential hypertension, benign Take 1 Capsule (12.5 mg) by mouth daily. 100 Capsule 3 01/31/20 25 Active losartan (COZAAR) 100 mg tabletIndications: Essential hypertension, benign Take 1 Tablet (100 mg) by mouth daily. 100 Tablet 3 01/31/20 25 Active amLODIPine (NORVASC) 10 mg tabletIndications: Essential hypertension, benign Take 1 Tablet (10 mg) by mouth daily. 100 Tablet 3 01/31/20 25 Active amLODIPine (NORVASC) 10 mg tabletIndications: Essential hypertension, benign Take 1 Tablet (10 mg) by mouth daily. 100 Tablet 2 05/02/20 24 025 Discontin ued(Reord er) losartan (COZAAR) 100 mg tabletIndications: Essential hypertension, benign Take 1 Tablet (100 mg) by mouth daily. 100 Tablet 10/05/19 025 Discontin ued(Reord er) hydroCHLOROthiazid e (MICROZIDE) 12.5 mg capsuleIndications :Essential hypertension, benign Take 1 Capsule (12.5 mg) by mouth daily. 100 Capsule 10/05/19 25 025 Discontin ued(Reord er) HYDROcodone-acetam inophen (NORCO) 7.5-325 mg TabletIndications: Spondylosis [...] Need for prophylactic vaccin ation with combined ssbfbasokb-zmkrdfc-fwfxhlzfu (DTP) vaccine 05/28/2006 12/01/2007 Routine gynecological examination 05/21/2006 12/01/2007 Unspecified sinusitis (chronic) 10/21/2005 12/01/2007 Acute sinusitis, unspecified 09/17/2005 12/01/2007 Acute bronchitis 05/28/2005 12/01/2007 Encounters Date Type Department Care Team Description 01/30/2025 Refill [facility] Primary Care [address] [place] [address] Dominick Grigsby MD Essential hypertension, benign 01/25/2025 Refill [facility] Primary [place] [address] [facility] [address] [place] [address] Dominick Grigsby MD Spondylosis of lumbar region without myelopathy or radiculopathy 01/11/2025 External Device Data STL ABSTRACTION Provider, Abstract 12/21/2024 External Device Data STL ABSTRACTION Provider, Abstract 12/20/2024 External Device Data STL ABSTRACTION Provider, Abstract 12/18/2024 Refill [facility] Primary Care [address] [place] [address] Dominick Grigsby MD Mixed hyperlipidemia 12/08/2024 Abstract [facility] Primary Care [place] [address] [place] [address] Dominick Grigsby MD 12/06/2024 Abstract [facility] Primary [facility] [place] [address] [place] [address] Dominick Grigsby MD 12/06/2024 Orders Only [facility] Primary Care [address] [place] [address] Provider, Abstract 12/05/2024 1:30 PM CDT Office Visit [facility] Primary Care [address] [place] [address] Dominick Grigsby MD Essential hypertension, benign (Primary Dx); Hypertensive kidney disease with stage 3a chronic kidney disease (CMS/HCC); Stage 3a chronic kidney disease (CMS/HCC); Mixed hyperlipidemia; Major depressive disorder with single episode, in partial remission; 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; Stress at home; Primary osteoarthritis of right shoulder; Encounter for Medicare annual wellness exam 11/21/2024 Refill [facility] Primary Care [address] [place] [address] Dominick Grigsby MD Spondylosis of lumbar region [...] on file 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 Gender Identity Not on file Sexual Orientation [...] 06/21/2015, 11/10/2014, 05/29/2009 ZOSTER VACCINE Completed 02/05/2018, 070 02/2018, 09/28/2017 COLORECTAL SCREENING Discontinued 11/06/2021, 03/19/2017, 05/05/2006 Colorectal Cancer Screening Discontinued Medicare Advantage (DC) Preventative Visit/Annual Wellness Visit Completed 12/05/2024, 12/04/2023, 11/21/2022, Additional history exists FIT-DNA Q 3 years Discontinued FIT/FOBT Q 1 year Discontinued Flex Sig/CT Colonography Q 5 years Discontinued Medical Devices Implanted Type Area Touch Up Painter Hand Device Identifier Shelf Expiration Date Model / Serial / Lot Loop Polyp [id number] - [id number] Implanted:Qty: 1 on 07/06/2013 by Armin Garrison MD at [facility] Hemostatic [employer] 02/06/2015 [id number]- [id number] [...] MD GI PROCEDURE ORDERABLES Final Re sult [facility] CLIA# [id number] [address] [place] [address] from Last 3 Months or Most Recently Relevant to Health Maintenance Insurance Advance Directives For more information, please contact: [phone] * Full Code (Latest Code Status on File) Date Activated Date Inactivated Comments 07/06/2013 6:33 AM 07/06/2013 11:27 AM * Full Code Date Activated Date Inactivated Comments 11/06/2010 10:57 PM 11/08/2010 5:14 PM * Full Code Date Activated Date Inactivated Comments 03/07/2010 5:50 AM 03/07/2010 6:25 PM * Full Code Date Activated Date Inactivated Comments 11/15/2009 5:54 AM 11/15/2009 8:29 PM Care Teams Hvac Maintenance Technician Relationship Specialty Start Date End Date Dominick Grigsby MD [address] [address] PCP - General 10/11/01
--- OUTSIDE RECORDS SUMMARY | 2025-02-20 03:16 | XMS_ITS | Encounter Summary ---
Author Organization [facility] Address 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
--- OUTSIDE RECORDS SUMMARY | 2025-02-20 03:16 | XMS_ITS | Encounter Summary ---
Author Organization [employer] Address [address] [place] [address] Care Team Providers Care Orchestrator Name Role Phone Dominick Grigsby MD Primary Care Provider [phone] Encounter Details Date Type Department Care Team (Late st Contact Info) Description 10/21/2005 Outpatient Historical [facility] Internal Medicine 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
--- OUTSIDE RECORDS SUMMARY | 2025-02-20 03:16 | XMS_ITS | Encounter Summary ---
Author Organization [facility] Address [address] [place] [address] Care Team Providers Care Compotype Operator Name Role Phone Dominick Grigsby MD Primary Care Provider [phone] Encounter Details Date Type Department Care Team (Latest Contact Info) Description 05/30/2008 Outpatient Historical [facility] [address] Dominick Grigsby MD [address] [place] [address] Routine Gynecological Examination Social History Tobacco Use Types Packs/Day Years Used Date Smoking Tobacco: Never Alcohol Use Standard Drinks/Week Comments Yes 1.7 (1 standard drink = 0.6 oz p ure alcohol) Comments No Sex and Gender Information Value Date Recorded Sex Assigned at Not on file Legal Sex Female 3:52 AM PALEONTOLOGY TEACHER Gender Identity Not on file Sexual Orientation Not on file documented as of this encounter Plan of Treatment Not on file documented as of this encounter Visit Diagnoses Diagnosis Routine gynecological examination documented in this encounter Care Teams Compotype Operator Relationship Specialty Start Date End Date Dominick Grigsby MD [address] [place] [address] PCP - General 10/11/01 documented as of this encounter
--- OUTSIDE RECORDS SUMMARY | 2025-02-20 03:16 | XMS_ITS | Encounter Summary ---
Author Organization [facility] Address [address] [place] [address] Care Team Providers Care Moid Middle School Teacher Name Role Phone Dominick Grigsby MD Primary Care Provider [phone] Encounter Details Date Type Department Care Team (Latest Contact Info) Description 10/11/2001 Outpatient Historical [facility] Christina Keller MD [address] [place] [address] SCREENING-NEUROLOGI SENA COND (Primary Dx) Social History Tobacco Use Types Packs/Day Years Used Date Smoking Tobacco: Never Assessed Comments Unknown Sex and Gender Information Value Date Recorded Sex Assigned at Not on file Legal Sex Female 3:52 AM SENIOR JAVA UI DEVELOPER Gender Identity Not on file Sexual Orientation Not on file documented as of this encounter Plan of Treatment Not on file documented as of this encounter Visit Diagnoses Diagnosis Screening for neurological conditions- Primary documented in this encounter Care Teams Moid Middle [employer] Teacher Relationship Specialty Start Date End Date Dominick Grigsby MD [address] [place] [address] [address] [place] [address] PCP - General 10/11/01 documented as of this encounter
--- OUTSIDE RECORDS SUMMARY | 2025-02-20 03:16 | XMS_ITS | Encounter Summary ---
Author Organization [employer] Address [address] [place] [address] Care Team Providers Care Palm Gatherer Name Role Phone Dominick Grigsby MD Primary Care Provider [phone] Encounter Details Date Type Department Care Team (Late st Contact Info) Description 05/17/2004 Outpatient Historical [facility] Support Serv. (Adt Cardiology-[facility]) [address] [place] [address] Cruz Crum Social History Tobacco Use Types Packs/Day Years Used Date Smoking Tobacco: Never Assessed Comments Unknown Sex and Gender Information Value Date Recorded Sex Assigned at Not on file Legal Sex Female 3:52 AM UTILITY ACCOUNTS DIRECTOR Gender Identity Not on file Sexual Orientation Not on file documented as of this encounter Plan of Treatment Not on file documented as of this encounter Visit Diagnoses Not on filedocumented in this encounter Care Teams Palm Gatherer Relationship Specialty Start Date End Date Dominick Grigsby MD [address] [place] [address] [address] [place] [address] PCP - General 10/11/01 documented as of this encounter
--- OUTSIDE RECORDS SUMMARY | 2025-02-20 03:16 | XMS_ITS | Encounter Summary ---
Author Organization [facility] Address [address] [place] [address] Care Team Providers Care Parts Person Name Role Phone Dominick Grigsby MD Primary Care Provider [phone] Encounter Details Date Type Department Care Team (Late st Contact Info) Description 09/07/2003 Outpatient Historical [facility] Internal Medicine [address] [place] [address] Dominick Grigsby MD [address] [place] [address] Social History Tobacco Use Types Packs/Day Years Used Date Smoking Tobacco: Never Assessed Comments Unknown Sex and Gender Information Value Date Recorded Sex Assigned at Not on file Legal Sex Female 3:52 AM 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
--- OUTSIDE RECORDS SUMMARY | 2025-02-20 03:16 | XMS_ITS | Encounter Summary ---
Author Organization [facility] Address [address] [place] [address] Care Team Providers Care Claim Taker Name Role Phone Dominick Grigsby MD Primary Care Provider [phone] Encounter Details Date Type Department Care Team (Late st Contact Info) Description 12/18/2005 Orders Only [facility] Internal Medicine [address] [place] [address] Dominick Grigsby MD 300 [facility] [address] [place] [address] Social History Tobacco Use Types Packs/Day Years Used Date Smoking Tobacco: Never Assessed Comments Unknown Sex and Gender Information Value Date Recorded Sex Assigned at Not on file Legal Sex Female 3:52 AM TELEPHONE TRIAGE NURSE Gender Identity Not on file Sexual Orientation Not on file documented as of this encounter Progress Notes * Dominick Grigsby MD - 03/17/2008 11:01 AM CDT TIME:10:05 am PATIENT`S HOME PHONE: PATIENT`S WORK PHONE: PATIENT`S INSURANCE: [employer] [facility] WHO TOOK THE CALL: Lisa Collins L GENERAL INFORMATION PATIENT STATUS: Established Patient. ALTERNATIVE PHONE NUMBER: [phone] WHO CALLED: Patient called. PHARMACY NUMBER: [facility]: [phone] SECTION 1: REQUESTED ACTION lamprl 12/18/05 at [...] refills./rll Electronically Signed by: Lisa Collins on December documented in this encounter Plan of Treatment Not on file documented as of this encounter Visit Diagnoses Not on filedocumented in this encounter Care Teams Claim Taker Relationship Specialty Start Date End Date Dominick Grigsby MD 300 [facility] [address] [place] [address] PCP - General 10/11/01 documented as of this encounter
--- OUTSIDE RECORDS SUMMARY | 2025-02-20 03:16 | XMS_ITS | Encounter Summary ---
Author Organization [facility] Address [address] [place] [address] Care Team Providers Care Director Of Perioperative Services Name Role Phone Dominick Grigsby MD Primary Care Provider Encounter Details Date Type Department Care Team (Late st Contact Info) Description 06/06/2004 Outpatient Historical [facility] Internal Medicine [address] [place] [address] Dominick Grigsby MD [address] [place] [address] Social History Tobacco Use Types Packs/Day Years Used Date Smoking Tobacco: Never Assessed Comments Unknown Sex and Gender Information Value Date Recorded Sex Assigned at Not on file Legal Sex Female 3:52 AM EMBEDDER Gender Identity Not on file Sexual Orientation Not on file documented as of this encounter Plan of Treatment Not on file documented as of this encounter Visit Diagnoses Not on filedocumented in this encounter Care Teams Director Of Perioperative Services Relationship Specialty Start Date End Date Dominick Grigsby MD [address] [place] [address] PCP - General 10/11/01 documented as of this encounter
--- OUTSIDE RECORDS SUMMARY | 2025-02-20 03:16 | XMS_ITS | Encounter Summary ---
Author Organization [employer] Address [address] [place] [address] Care Team Providers Care Project Manager Industrial Name Role Phone Dominick Grigsby MD Primary Care Provider Encounter Details Date Type Department Care Team (Late st Contact Info) Description 09/26/2003 Outpatient Historical [facility] Internal Medicine [address] [place] [address] Dominick Grigsby MD [address] [place] [address] Social History Tobacco Use Types Packs/Day Years Used Date Smoking Tobacco: Never Assessed Comments Unknown Sex and Gender Information Value Date Recorded Sex Assigned at Not on file Legal Sex Female 3:52 AM CASING FLUSHER Gender Identity Not on file Sexual Orientation Not on file documented as of this encounter Plan of Treatment Not on file documented as of this encounter Visit Diagnoses Not on filedocumented in this encounter Care Teams Project Manager Industrial Relationship Specialty Start Date End Date Dominick Grigsby MD [address] [place] [address] PCP - General 10/11/01 documented as of this encounter
--- OUTSIDE RECORDS SUMMARY | 2025-02-20 03:16 | XMS_ITS | Clinical Summary ---
Author Organization [facility] Address [address] [place] [address] Care Team Providers Care Corn Husk Baler Name Role Phone Unavailable Primary Care Provider Unavailabl e Source Comments [facility],non-owned Affiliates and Associated Physician Practices is amultiple site organization consisting of ambulatory clinics and hospital sitesin [place], [place], [place] and [place]. This disclosure is being madepursuant to the Care Everywhere program and may not contain all information available regarding this patient. Last updated 18.[facility] Spreadshirt Social History Tobacco Use Types Packs/Day Years Used Date Smoking Tobacco: Never Assessed Comments Unknown Sex and Gender Information Value Date Recorded Sex Assigned at Not on file Legal Sex Female 5:51 AM CUFF SETTER LOCKSTITCH Gender Identity Not on file Sexual Orientation [...] yrs (1 - 1-dose 75+ series) 2023 DEPRESSION SCREENING 06/08/2024 COVID-19 VACCINE ( - 2023-2 5 season) 2025 INFLUENZA VACCINE (#1) 2025 HEPATITIS B VACCINE [...] patient's age to complete this topic Insurance [facility] MANAGED MEDICARE ADV MEDICARE
--- OUTSIDE RECORDS SUMMARY | 2025-02-20 03:16 | XMS_ITS | Encounter Summary ---
Author Organization [facility] Address [address] [place] [address] Care Team Providers Care Elevator Constructor Name Role Phone Dominick Grigsby MD Primary Care Provider [phone] Encounter Details Date Type Department Care Team (Late st Contact Info) Description 10/08/2005 Orders Only [facility] Internal Medicine 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 ALTERNATIVE PHONE NUMBER: [phone] WHO CALLED: Patient called. PHARMACY NUMBER: [facility]: [phone] SECTION 1: REQUESTED ACTION [email or web address] 10/08/05 at [...] on filedocumented in this encounter Care Teams Elevator Constructor Relationship Specialty Start Date End Date Dominick Grigsby MD [address] [place] [address] PCP - General 10/11/01 documented as of this encounter
--- OUTSIDE RECORDS SUMMARY | 2025-02-20 03:16 | XMS_ITS | Encounter Summary ---
Author Organization [facility] Address [address] [place] [address] Care Team Providers Care Natural Gas Technician Name Role Phone Dominick Grigsby MD Primary Care Provider [phone] Encounter Details Date Type Department Care Team (Late st Contact Info) Description 09/26/2005 Outpatient Historical [facility] Internal Medicine [address] [place] [address] Dominick Grigsby MD [address] [facility] [address] [place] [address] Social History Tobacco Use Types Packs/Day Years Used Date Smoking Tobacco: Never Assessed Comments Unknown Sex and Gender Information Value Date Recorded Sex Assigned at Not on file Legal Sex Female 3:52 AM INFORMATICS PHYSICIAN LIAISON Gender Identity Not on file Sexual Orientation [...] on filedocumented in this encounter Care Teams Natural Gas Technician Relationship Specialty Start Date End Date Dominick Grigsby MD [address] [phone] PCP - General 10/11/01 documented as of this encounter
--- OUTSIDE RECORDS SUMMARY | 2025-02-20 03:16 | XMS_ITS | Encounter Summary ---
Author Organization [facility] Address [address] [place] [address] Care Team Providers Care Gang Miner Name Role Phone Dominick Grigsby MD Primary Care Provider [phone] Encounter Details Date Type Department Care Team (Late st Contact Info) Description 03/19/2006 Orders Only [facility] Internal Medicine 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 WHO TOOK THE CALL: Lisa Collins L GENERAL INFORMATION PATIENT STATUS: Established Patient. WHO CALLED: Patient called. ALTERNATIVE PHONE NUMBER: [phone] PHARMACY NUMBER: [facility]: [phone] SECTION 1: REQUESTED ACTION [email or web address] 03/19/06 at [...] on filedocumented in this encounter Care Teams Gang Miner Relationship Specialty Start Date End Date Dominick Grigsby MD [address] [facility] [address] [place] [address] PCP - General 10/11/01 documented as of this encounter
--- OUTSIDE RECORDS SUMMARY | 2025-02-20 03:16 | XMS_ITS | Encounter Summary ---
Author Organization [facility] Address [address] [place] [address] Care Team Providers Care High School Science Teacher Name Role Phone Dominick Grigsby MD Primary Care Provider [phone] Encounter Details Date Type Department Care Team (Latest Contact Info) Description 11/19/1999 Outpatient Historical [facility] René Faust MD Carpal tunnel syndrome (Primary Dx) Social History Tobacco Use Types Packs/Day Years Used Date Smoking Tobacco: Never Assessed Comments Unknown Sex and Gender Information Value Date Recorded Sex Assigned at Not on file Legal Sex Female 3:[address]AFETY ENGINEER Gender Identity Not on file Sexual Orientation Not on file documented as of this encounter Plan of Treatment Not on file documented as of this encounter Visit Diagnoses Diagnosis Carpal tunnel syndrome- Primary documented in this encounter Care Teams High School Science Teacher Relationship Specialty Start Date End Date Dominick Grigsby MD 300 [facility] [address] [place] [address] PCP - General 10/11/01 documented as of this encounter
--- OUTSIDE RECORDS SUMMARY | 2025-02-20 03:16 | XMS_ITS | Encounter Summary ---
Author Organization [facility] Address 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
--- OUTSIDE RECORDS SUMMARY | 2025-02-20 03:17 | XMS_ITS | Encounter Summary ---
Author Organization [facility] Address [address] [place] [address] Care Team Providers Care Fabricator Industrial Furnace Name Role Phone Dominick Grigsby MD Primary Care Provider [phone] Encounter Details Date Type Department Care Team (Late st Contact Info) Description 11/19/2006 Outpatient Historical [facility] Internal Medicine [address] [place] [address] Dominick Grigsby MD [address] [facility] [address] [place] [address] Social History Tobacco Use Types Packs/Day Years Used Date Smoking Tobacco: Never Assessed Comments Unknown Sex and Gender Information Value Date Recorded Sex Assigned at Not on file Legal Sex Female 3:52 AM HIDE DYER Gender Identity Not on file Sexual Orientation [...] on filedocumented in this encounter Care Teams Fabricator Industrial Furnace Relationship Specialty Start Date End Date Dominick Grigsby MD [address] [facility] [address] [place] [address] PCP - General 10/11/01 documented as of this encounter
--- OUTSIDE RECORDS SUMMARY | 2025-02-20 03:17 | XMS_ITS | Encounter Summary ---
Author Organization [facility] Address [address] [place] [address] Care Team Providers Care Telecom Specialist Name Role Phone Dominick Grigsby MD Primary Care Provider [phone] Encounter Details Date Type Department Care Team (Late st Contact Info) Description 09/27/2007 Orders Only [facility] Internal Medicine 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 WHO CALLED: Pharmacy called. PHARMACY NUMBER: [phone] SECTION 1: REQUESTED ACTION [email or web address] 09/27/07 at [...] on filedocumented in this encounter Care Teams Telecom Specialist Relationship Specialty Start Date End Date Dominick Grigsby MD 300 [facility] [address] [place] [address] PCP - General 10/11/01 documented as of this encounter
--- OUTSIDE RECORDS SUMMARY | 2025-02-20 03:17 | XMS_ITS | Encounter Summary ---
Author Organization [facility] Address [address] [place] [address] Care Team Providers Care Gun Club Manager Name Role Phone Dominick Grigsby MD Primary Care Provider Encounter Details Date Type Department Care Team (Late st Contact Info) Description 05/21/2006 Outpatient Historical [facility] Internal Medicine [address] [place] [address] Dominick Grigsby MD [address] [place] [address] Social History Tobacco Use Types Packs/Day Years Used Date Smoking Tobacco: Never Assessed Comments Unknown Sex and Gender Information Value Date Recorded Sex Assigned at Not on file Legal Sex Female 3:52 AM 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
--- OUTSIDE RECORDS SUMMARY | 2025-02-20 03:17 | XMS_ITS | Encounter Summary ---
Author Organization [facility] Address [address] [place] [address] Care Team Providers Care Associate Professor Of Pathology Name Role Phone Dominick Grigsby MD Primary Care Provider [phone] Encounter Details Date Type Department Care Team (Late st Contact Info) Description 04/01/2007 Orders Only [facility] Internal Medicine 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 WHO CALLED: Pharmacy called. PHARMACY NUMBER: [phone] [facility] SECTION 1: REQUESTED ACTION [email or web address] [...] on filedocumented in this encounter Care Teams Associate Professor Of Pathology Relationship Specialty Start Date End Date Dominick Grigsby MD [address] [facility] [address] [place] [address] PCP - General 10/11/01 documented as of this encounter
--- OUTSIDE RECORDS SUMMARY | 2025-02-20 03:17 | XMS_ITS | Encounter Summary ---
Author Organization [facility] Address [address] [place] [address] Care Team Providers Care Photo Checker And Assembler Name Role Phone Dominick Grigsby MD Primary Care Provider [phone] Encounter Details Date Type Department Care Team (Late st Contact Info) Description 05/21/2006 Outpatient Historical [facility] Internal Medicine [address] [place] [address] Dominick Grigsby MD [address] [place] [address] Social History Tobacco Use Types Packs/Day Years Used Date Smoking Tobacco: Never Assessed Comments Unknown Sex and Gender Information Value Date Recorded Sex Assigned at Not on file Legal Sex Female 3:52 AM RN POSTPARTUM Gender Identity Not on file Sexual Orientation Not on file documented as of this encounter Plan of Treatment Not on file documented as of this encounter Visit Diagnoses Not on filedocumented in this encounter Care Teams Photo Checker And Assembler Relationship Specialty Start Date End Date Dominick Grigsby MD [address] [place] [address] PCP - General 10/11/01 documented as of this encounter
--- OUTSIDE RECORDS SUMMARY | 2025-02-20 03:17 | XMS_ITS | Encounter Summary ---
Author Organization [facility] Address [address] [place] [address] Care Team Providers Care Welder Fitter Apprentice Name Role Phone Dominick Grigsby MD Primary Care Provider [phone] Encounter Details Date Type Department Care Team (Late st Contact Info) Description 01/27/2007 [facility] [address] [place] [address] Dominick Grigsby MD [address] [place] [address] Social History Tobacco Use Types Packs/Day Years Used Date Smoking Tobacco: Never Assessed Comments Unknown Sex and Gender Information Value Date Recorded Sex Assigned at Not on file Legal Sex Female 3:[address] Gender Identity Not on file Sexual Orientation Not on file documented as of this encounter Plan of Treatment Not on file documented as of this encounter Visit Diagnoses Not on filedocumented in this encounter Care Teams Welder Fitter Apprentice Relationship Specialty Start Date End Date Dominick Grigsby MD [address] [place] [address] PCP - General 10/11/01 documented as of this encounter
--- OUTSIDE RECORDS SUMMARY | 2025-02-20 03:17 | XMS_ITS | Encounter Summary ---
Author Organization [facility] Address [address] [place] [address] Care Team Providers Care Business Services Manager Name Role Phone Dominick Grigsby MD Primary Care Provider [phone] Encounter Details Date Type Department Care Team (Late st Contact Info) Description 01/18/2007 [facility] [place] [facility] [address] [place] [address] Dominick Grigsby MD [address] [place] [address] Social History Tobacco Use Types Packs/Day Years Used Date Smoking Tobacco: Never Assessed Comments Unknown Sex and Gender Information Value Date Recorded Sex Assigned at Not on file 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
--- OUTSIDE RECORDS SUMMARY | 2025-02-20 03:17 | XMS_ITS | Encounter Summary ---
Author Organization [facility] Address [address] [place] [address] Care Team Providers Care Decontamination Worker Name Role Phone Dominick Grigsby MD Primary Care Provider [phone] Encounter Details Date Type Department Care Team (Late st Contact Info) Description 08/31/2007 Orders Only [facility] Internal Medicine [address] [place] [address] Dominick Grigsby MD [address] [facility] [address] [place] [address] Social History Tobacco Use Types Packs/Day Years Used Date Smoking Tobacco: Never Assessed Comments Unknown Sex and Gender Information Value Date Recorded Sex Assigned at Not on file Legal Sex Female 3:52 AM PIZZAMAKER Gender Identity Not on file Sexual Orientation Not on file documented as of this encounter Progress Notes * Dominick Grigsby MD - 11/11/2007 7:54 PM CDT TIME:11:23 am PATIENT`S HOME PHONE: PATIENT`S WORK PHONE: PATIENT`S INSURANCE: [employer] WHO TOOK THE CALL: Hortencia Ty P GENERAL INFORMATION ALTERNATIVE PHONE NUMBER: [phone] WHO CALLED: Patient called. PHARMACY NUMBER: OTHER [...] on filedocumented in this encounter Care Teams Decontamination Worker Relationship Specialty Start Date End Date Dominick Grigsby MD [address] [facility] [address] [place] [address] PCP - General 10/11/01 documented as of this encounter
--- OUTSIDE RECORDS SUMMARY | 2025-02-20 03:17 | XMS_ITS | Encounter Summary ---
Author Organization [facility] Address [address] [place] [address] Care Team Providers Care Per Diem Clerk Name Role Phone Dominick Grigsby MD Primary Care Provider Encounter Details Date Type Department Care Team (Late st Contact Info) Description 01/01/2007 Orders Only [facility] Internal Medicine [address] [place] [address] Dominick Grigsby MD 300 [facility] [address] [place] [address] Social History Tobacco Use Types Packs/Day Years Used Date Smoking Tobacco: Never Assessed Comments Unknown Sex and Gender Information Value Date Recorded Sex Assigned at Not on file Legal Sex Female 3:52 AM COMMUNITY OUTREACH ADVOCATE Gender Identity Not on file Sexual Orientation Not on file documented as of this encounter Progress Notes * Dominick Grigsby MD - 10/27/2007 12:35 PM CDT TIME:03:22 pm PATIENT`S HOME PHONE: PATIENT`S WORK PHONE: PATIENT`S INSURANCE: [employer] WHO TOOK THE CALL: Shannon Kingsley K GENERAL INFORMATION LAST VISIT: 11/19/06 WHO CALLED: Patient called. @ [phone] PHARMACY NUMBER: Susana @ # SECTION 1: REQUESTED ACTION [email or web address] 01/01/07 at 03:23 pm: MEDICATION REQUEST: Pt needs 90 day refill of the Tricor? 145mg??--not loaded in EMR Rx List--Call to [facility]--AND just FY--pt has lost 9 lbs--has been trying really hard the last 3 wks.../[facility] DOCTOR`S RESPONSE: [email or web address] 01/01/07 at 04:02 pm MEDICATIONS: TRICOR ORAL TABLET 145 MG, 1 Every Day, 90 Dispensed, 3 Fills, status: NEW PRESCRIPTION, 01/01/2007. FINAL ACTION: [email or web address] 01/01/07 at 04:12 pm Called pharmacy at 01/01/07 at 04:12 pm. bc Electronically Signed by: Mariaojse Singh on Monday, January 01, 2007 documented in this encounter Plan of Treatment Not on file documented as of this encounter Visit Diagnoses Not on filedocumented in this encounter Care Teams Per Diem Clerk Relationship Specialty Start Date End Date Dominick Grigsby MD 300 [facility] [address] [place] [address] PCP - General 10/11/01 documented as of this encounter
--- OUTSIDE RECORDS SUMMARY | 2025-02-20 03:17 | XMS_ITS | Encounter Summary ---
Author Organization [facility] Address [address] [place] [address] Care Team Providers Care Bulldozer Press Operator Name Role Phone Dominick Grigsby MD Primary Care Provider Encounter Details Date Type Department Care Team (Late st Contact Info) Description 03/17/2007 [facility] [place] [place] [facility] 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
--- OUTSIDE RECORDS SUMMARY | 2025-02-20 03:17 | XMS_ITS | Encounter Summary ---
Author Organization [facility] Address [address] [place] [address] Care Team Providers Care Eating Disorder Psychologist Name Role Phone Dominick Grigsby MD Primary Care Provider [phone] Encounter Details Date Type Department Care Team (Late st Contact Info) Description 04/05/2007 Orders Only [facility] Internal [facility] 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 WHO CALLED: Patient called. ALTERNATIVE PHONE NUMBER: [phone] PHARMACY NUMBER: [phone] SECTION 1: REQUESTED ACTION [facility] 04/05/07 at [...] on filedocumented in this encounter Care Teams Eating Disorder Psychologist Relationship Specialty Start Date End Date Dominick Grigsby MD [address] [phone] PCP - General 10/11/01 documented as of this encounter
--- OUTSIDE RECORDS SUMMARY | 2025-02-20 03:17 | XMS_ITS | Encounter Summary ---
Author Organization [facility] Address [address] [place] [address] Care Team Providers Care Financial Services Education Consultant Name Role Phone Dominick Grigsby MD Primary Care Provider Encounter Details Date Type Department Care Team (Late st Contact Info) Description 06/09/2007 Outpatient Historical [facility] Internal Medicine [address] [place] [address] Dominick Grigsby MD [address] [place] [address] Social History Tobacco Use Types Packs/Day Years Used Date Smoking Tobacco: Never Assessed Comments Unknown Sex and Gender Information Value Date Recorded Sex Assigned at Not on file Legal Sex Female 3:52 AM MANAGER GIFT Gender Identity Not on file Sexual Orientation Not on file documented as of this encounter Plan of Treatment Not on file documented as of this encounter Visit Diagnoses Not on filedocumented in this encounter Care Teams Financial Services Education Consultant Relationship Specialty Start Date End Date Dominick Grigsby MD [address] [place] [address] PCP - General 10/11/01 documented as of this encounter
--- OUTSIDE RECORDS SUMMARY | 2025-02-20 03:17 | XMS_ITS | Encounter Summary ---
Author Organization [facility] Address [address] [place] [address] Care Team Providers Care Firer Kiln Name Role Phone Dominick Grigsby MD Primary Care Provider [phone] Encounter Details Date Type Department Care Team (Latest Contact Info) Description 12/22/2007 Outpatient Historical [facility] Dominick Grigsby MD [address] [place] [address] Unspecified Osteoporosis Social History Tobacco Use Types Packs/Day Years Used Date Smoking Tobacco: Never Alcohol Use Standard Drinks/Week Comments Yes 1.7 (1 standard drink = 0.6 oz p ure alcohol) Comments No Sex and Gender Information Value Date Recorded Sex Assigned at Not on file Legal Sex Female 3:[address]IGHT REPAIRER Gender Identity Not on file Sexual Orientation Not on file documented as of this encounter Plan of Treatment Not on file documented as of this encounter Visit Diagnoses Diagnosis Osteoporosis, unspecified documented in this encounter Care Teams Firer Kiln Relationship Specialty Start Date End Date Dominick Grigsby MD [address] [place] [address] PCP - General 10/11/01 documented as of this encounter
--- OUTSIDE RECORDS SUMMARY | 2025-02-20 03:17 | XMS_ITS | Encounter Summary ---
Author Organization [facility] Address [address] [place] [address] Care Team Providers Care Roller Man Name Role Phone Dominick Grigsby MD Primary Care Provider [phone] Encounter Details Date Type Department Care Team (Late st Contact Info) Description 05/26/2007 Outpatient Historical [facility] Internal Medicine [address] [place] [phone] Domincik Grigsby MD [address] [facility] [address] [place] [address] Social History Tobacco Use Types Packs/Day Years Used Date Smoking Tobacco: Never Assessed Comments Unknown Sex and Gender Information Value Date Recorded Sex Assigned at Not on file Legal Sex Female 3:52 AM MORTUARY TECHNICIAN Gender Identity Not on file Sexual Orientation Not on file documented as of this encounter Last Filed Vital Signs Vital Sign Reading Time Taken Comments Blood Pressure 122/80 05/26/2007 2:00 PM MORTUARY TECHNICIAN Pulse 65 05/26/2007 2:00 PM MORTUARY TECHNICIAN Temperature - - Respiratory Rate - - Oxygen Saturation - - Inhaled Oxygen Concentration - - Weight 70.8 kg (156 lb) 05/26/2007 2:00 PM MORTUARY TECHNICIAN Height 171.5 cm (5' 7.5) 05/26/2007 2:00 PM MORTUARY TECHNICIAN Body Mass Index 24.07 05/26/2007 2:00 PM MORTUARY TECHNICIAN documented in this encounter Plan of Treatment Not on file documented as of this encounter Visit Diagnoses Not on filedocumented in this encounter Care Teams Roller Man Relationship Specialty Start Date End Date Dominick Grigsby MD [address] [facility] [address] [place] [phone] PCP - General 10/11/01 documented as of this encounter
--- OUTSIDE RECORDS SUMMARY | 2025-02-20 03:17 | XMS_ITS | Encounter Summary ---
Author Organization [facility] Address [address] [place] [address] Care Team Providers Care Employment Educational Coord Name Role Phone Dominick Grigsby MD Primary Care Provider [phone] Encounter Details Date Type Department Care Team (Late st Contact Info) Description 09/02/2006 Orders Only [facility] Internal Medicine [address] [place] [address] Dominick Grigsby MD [address] [facility] [address] [place] [address] Social History Tobacco Use Types Packs/Day Years Used Date Smoking Tobacco: Never Assessed Comments Unknown Sex and Gender Information Value Date Recorded Sex Assigned at Not on file Legal Sex Female 3:52 AM PHARMACIST HELPER Gender Identity Not on file Sexual Orientation Not on file documented as of this encounter Progress Notes * Dominick Grigsby MD - 10/29/2007 1:35 PM CDT TIME:11:24 am PATIENT`S HOME PHONE: PATIENT`S WORK PHONE: PATIENT`S INSURANCE: [place] [employer] WHO TOOK THE CALL: Lisa Collins L GENERAL INFORMATION PATIENT STATUS: Established Patient. WHO CALLED: Patient called. ALTERNATIVE PHONE NUMBER: [phone] PHARMACY NUMBER: [phone] SECTION 1: [facility] am: MEDICATION REQUEST: [...] on voice mail/rll Spoke with Estela at [facility] RX/rll Electronically Signed by: Lisa Collins on Saturday, September 02, 2006 documented in this encounter Plan of Treatment Not on file documented as of this encounter Visit Diagnoses Not on filedocumented in this encounter Care Teams Employment Educational Coord Relationship Specialty Start Date End Date Dominick Grigsby MD 300 [facility] [address] [place] [address] PCP - General 10/11/01 documented as of this encounter
--- OUTSIDE RECORDS SUMMARY | 2025-02-20 03:17 | XMS_ITS | Encounter Summary ---
Author Organization [facility] Address [address] [place] [address] Care Team Providers Care Cargo And Ramp Services Manager Name Role Phone Dominick Grigsby MD Primary Care Provider [phone] Encounter Details Date Type Department Care Team (Late st Contact Info) Description 08/04/2006 Orders Only [facility] Internal Medicine 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 WHO CALLED: Patient called. ALTERNATIVE PHONE NUMBER: [phone] SECTION 1: REQUESTED ACTION shawn 08/04/06 at [...] on filedocumented in this encounter Care Teams Cargo And Ramp Services Manager Relationship Specialty Start Date End Date Dominick Grigsby MD 300 [facility] [address] [place] [address] PCP - General 10/11/01 documented as of this encounter
--- OUTSIDE RECORDS SUMMARY | 2025-02-20 03:17 | XMS_ITS | Encounter Summary ---
Author Organization [facility] Address [address] [place] [address] Care Team Providers Care Dog Behaviorist Name Role Phone Dominick Grigsby MD Primary Care Provider Encounter Details Date Type Department Care Team (Late st Contact Info) Description 05/28/2006 Outpatient Historical [facility] Internal Medicine [address] [place] [address] Dominick Grigsby MD [address] [place] [address] Social History Tobacco Use Types Packs/Day Years Used Date Smoking Tobacco: Never Assessed Comments Unknown Sex and Gender Information Value Date Recorded Sex Assigned at Not on file 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
[2025-02-20] MEDS: ACETAMINOPHEN 500 MG TABLET 1000 MG PO (10:30)
--- NOTE | 2025-02-20 10:31 | WPDHPUPDATE1 ---
History and Physical Update Update Date/Time: 02/20/25 10:31 History and Physical has been reviewed, including an updated exam of the patient. There are NO changes in the patient's condition. Risks, benefits, and alternatives have been discussed and questions answered. Patient agrees to proceed with procedure.
[2025-02-20] MEDS: LACTATED RINGERS 1,000 ML 30 ML IV CONT ×2 (10:35→14:30)
[2025-02-20] MEDS: TRANEXAMIC ACID 1,000MG/ISO100 1,000 MG/100 ML BAG 200 MG IVPB (10:40)
--- NOTE | 2025-02-20 10:57 | WPDANESEPPF ---
Anes - Initial Pre Proc Eval Procedure: Operation Date: 02/20/25 12:00 Proposed Procedures p Right Custom Total Knee Arthroplasty - Troy Hart MD Date/Time: 02/20/25 10:57 Surgeon: Troy Hart MD Pre Op Diagnosis: primary OA right knee Patient Data Age: 74 Gender: F Height: 1.7 m Weight: 83.8 kg Last Vital Signs Temp 36.8 C 01/25/25 14:58 Pulse 61 01/25/25 14:58 Resp 18 01/25/25 14:58 BP 112/69 01/25/25 14:58 Pulse Ox 99 01/25/25 14:58 O2 Del Method Room Air 01/25/25 14:58 Allergies Allergy/AdvReac Type Severity Reaction Status Date / Time No Known Allergies Allergy Verified 02/20/25 10:53 Home Medications ?Medication ?Instructions ?Recorded ?Confirmed ?Type amlodipine 10 mg tablet 10 mg PO DAILY 05/08/20 02/20/25 History escitalopram oxalate 20 mg tablet 20 mg PO DAILY 05/08/20 02/20/25 History hydrochlorothiazide 12.5 mg capsule 12.5 mg PO DAILY 05/08/20 02/20/25 History losartan 100 mg tablet 100 mg PO HS 05/08/20 02/20/25 History bnjnujvd-unwp-yyxo 8 mg-folic 400 1 tablet PO DAILY 05/08/20 02/20/25 History mcg-K 50 mcg-lutein 300 mcg tablet (Centrum Silver Women) omega 2-lob-ile-fish oil 1,200 mg 1 cap PO BID 05/08/20 02/20/25 History (144 mg-216 mg) capsule (Fish Oil) omeprazole 20 mg capsule,delayed 20 mg PO BID 05/08/20 02/20/25 History release trazodone 100 mg tablet 100 mg PO HS 05/08/20 02/20/25 History vitamin B complex 1 cap PO DAILY 05/08/20 02/20/25 History cyclosporine 0.05 % eye drops in a 1 drp EACH EYE BID 10/22/21 01/25/25 History dropperette (Restasis) acetaminophen 325 mg capsule 325 mg PO Q6H PRN pain 05/04/23 02/20/25 History propylene glycol (PF) 0.6 % eye 1 drp ophthalmic (eye) PRN PRN dry 05/04/23 01/25/25 History drops (Systane Complete PF) eyes hydrocodone 5 mg-acetaminophen 325 1 tablet PO Q6H PRN pain #30 tabs 05/07/23 02/20/25 Rx mg tablet rosuvastatin 10 mg tablet 10 mg PO DAILY 11/03/23 02/20/25 History celecoxib 200 mg capsule See Rx Instructions .Route 08/25/24 02/20/25 Rx .COMPLEX #100 caps berislend .Route 01/25/25 History aspirin 81 mg tablet,delayed 81 mg PO BID 14 days #28 tabs 02/20/25 Rx release oxycodone-acetaminophen 5 mg-325 1 - 2 tablet PO Q4-6H PRN pain 7 02/20/25 Rx mg tablet days #30 tabs prednisone 5 mg tablet 5 mg PO DAILY 3 weeks #21 tabs 02/20/25 Rx Patient hx anesthesia problems: none Family hx anesthesia problems: none Results Review: All pre-operative results and documents have been reviewed as part of the pre-operative evaluation. [facility] Past Medical History Medical History Hyperlipidemia Peptic ulcer (2010) Hypertension Inflammatory arthritis Overweight (BMI 25.0-29.9) Anxiety Osteoporosis Osteoarthritis Barretts esophagus Chronic GERD Surgical History Surgical History History of reverse total replacement of right shoulder joint (~06/16/24) History of hip surgery left 04/17/23- Dr Lion History of bilateral cataract extraction History of reverse total replacement of left shoulder joint (~01/20/23) History of bunionectomy of left great toe (~04/2021) History of bunionectomy of right great toe (~12/2019) History of medial meniscus repair of right knee (~2017) Family History Family History Mother Cancer of lymph nodes, secondary Father Cancer Sibling Tongue cancer Other Hypertension Social History Social History Social History: Surrogate medical decision maker: Jeri Ge, daughter. Code status: Full code. Smoking status: Never smoker Second hand tobacco smoke exposure: No Additional smoking assessment comments: DENIES ANY FORM OF TOBACCO USE Alcohol intake: never Drinks per week: 0 Alcohol use details: 1 DRINK/YEAR Substance use: never Substance use type: does not use Do You Feel Safe in your Home?: Yes Lack of Transportation: No Lack of Food: Never True Current Housing: I Have Housing Concerned About Future Housing: Decline to Answer Difficulty Paying Gas/Electric Bills: Decline to Answer Difficulty Paying for Meds: Decline to Answer Currently Unemployed: Decline to Answer Education: High School Diploma/GED Difficulty w/ Childcare or Family Care: No Living arrangements: with family Additional living arrangements comments: Lives with daughters, grandson, and significant other. Additional occupation/education comments: Retired. Spiritual care concerns: No Anes - Eval Final PreProcedure Day of Procedure 02/20/25 10:57 Patient weight: overweight Heart: regular rate and rhythm Lungs: clear to auscultation Airway: Mallampati scale class II Neurological: alert and oriented Last oral intake: >/= 8 hours ASA classification: III Emergent: no Anesthetic plan: proceed Anesthesia type and monitoring: general LMA and standard monitoring Results Review: All pre-operative results and documents have been reviewed as part of the pre-operative evaluation. Informed Consent: The patient's anesthetic plan and its attendant risks and benefits were discussed with the patient/family/POA. Questions were solicited and answers provided to the satisfaction of the patient/family/POA.
[2025-02-20] MEDS: ceFAZolin 2 GM in SODIUM CHLORIDE 0.9% IV 50 ML 100 ML IVPB (12:17)
[2025-02-20] MEDS: SODIUM CHLORIDE 0.9% IV 37.7 ML, MORPHINE SULFATE INJ (*CRX) 2 MG, ROPivacaine HCL 1% 2... INFILTRATE (12:47)
--- NOTE | 2025-02-20 14:46 | P.OP_ITS ---
Procedure Note - Detailed Date of Procedure 02/20/25 Pre-op Diagnosis Right knee degenerative arthritis. Post-op Diagnosis Same Procedure Performed Custom total knee arthroplasty, right. Surgeon Troy Hart MD Anesthesia Attending Abbi Field PA-C Anesthesia General Findings Severe valgus disease. Prior lateral wound laceration as a child. Significant lateral soft tissue contracture required lateral release using pie crusting and popliteus and ITB band release. Description of Procedure Preoperative antibiotics were given. The limb was prepped and draped in the usual sterile fashion with a well-padded tourniquet high on the thigh. The limb was exsanguinated and the tourniquet inflated to 300 mmHg. A longitudinal incision was created just medial to the patella. A trivector approach to the knee was performed. Arthrotomy was taken down through the joint capsule. No significant releases were initially taken. The femur was exposed and the F1 jig was applied. The coring tool was used to remove the cartilage for the F2 jig to sit flush with the bone. The jig was pinned and the distal cut carefully taken. Caliper measurements confirmed appropriate bony resections according to the preoperative templated plan. The F4 cutting jig for the femur was applied, at the standard rotation. The AP and anterior chamfer cuts were taken. The F5 jig was applied and the posterior chamfer cuts were taken. The tibia was prepared using the T1 jig, after removing cartilage for the jig contact points. Proper alignment was checked with the alignment sarah. The tibia was cut using the T1u guide. Gap balancing was performed. Gap measurements were taken and the knee was trialed. Excellent alignment and soft tissue balancing was confirmed. The posterior cruciate ligament was recessed along the proximal tibia. The patella was cut for resurfacing. Three lug holes were drilled. Meniscal remnants were removed. The trial components were assembled. Excellent range of motion and proper soft tissue balancing were confirmed throughout the full range of motion. Patellar tracking was excellent. The knee was copiously irrigated periodically throughout the procedure. The real implants were cemented into position. Excess cement was carefully removed. The wound was closed in layers with interrupted #1 Vicryl suture, 2-0 strata fix suture, 0 strata fix suture, 2-0 strata fix suture. Steri-Strips placed on the skin with the knee flexed. Sterile bulky dressing applied. The patient was brought to the recovery room in stable condition. There were no complications. Physician drug safety assistant, Abbi Field PA-C, required for surgery; including patient positioning, draping, tissue retraction, maintaining instrument position, cement removal, wound closure, and dressing placement. Implants Conformis Custom total knee arthroplasty. Cemented. Cruciate retaining. 8A insert. Estimated Blood Loss 50 Drains No Complications No immediate complications Condition Stable Disposition PACU [facility] Billing Surgery - Charge Forward: Surgery Billing
[2025-02-20] MEDS: oxyCODONE HCL (*CRX) 5 MG TAB IR PO (16:17)
== END 2025-02-20 16:55 | disposition home or self-care (01) ==
PROVIDERS: Visit Provider Orthopaedic Surgery
PROC: (CPT 27447; principal; 2025-02-20 12:00)
DX: M17.11 Unilateral primary osteoarthritis, right knee (principal); E78.5 Hyperlipidemia, unspecified; I10 Essential (primary) hypertension; K21.9 Gastro-esophageal reflux disease without esophagitis; F41.9 Anxiety disorder, unspecified; M81.0 Age-related osteoporosis without current pathological fracture; M06.4 Inflammatory polyarthropathy; M19.90 Unspecified osteoarthritis, unspecified site; Z79.891 Long term (current) use of opiate analgesic; Z79.1 Long term (current) use of non-steroidal anti-inflammatories (NSAID); Z79.82 Long term (current) use of aspirin; Z79.52 Long term (current) use of systemic steroids; Z98.890 Other specified postprocedural states; Z87.11 Personal history of peptic ulcer disease; Z87.19 Personal history of other diseases of the digestive system; Z80.8 Family history of malignant neoplasm of other organs or systems; Z80.7 Family history of other malignant neoplasms of lymphoid, hematopoietic and related tissues
CPT/HCPCS: 27447; 36415; 73560; 86850; 86900; 86901; 97110; 97161; 97165; J0690; A9270; C1713; C1776; J0166; J1100; J1171; J1596; J1885; J2003; J2270; J2371; J2405; J2704; J2795; J3010; J7120